=== PATIENT | male | born 1960 | race Caucasian/White ===

== ENCOUNTER 2017-01-01 09:00 | Emergency (ER) | payer OTHER ==
[2017-01-01 09:32] VITALS: BP 135/79
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
== END 2017-01-01 11:38 ==
LOC: UCEAST 09:00
DX: H53.8 Other visual disturbances (principal); Z77.098 Contact with and (suspected) exposure to other hazardous, chiefly nonmedicinal, chemicals; F12.90 Cannabis use, unspecified, uncomplicated; Z87.891 Personal history of nicotine dependence
CPT/HCPCS: 99213; G0463

== ENCOUNTER 2017-01-15 15:45 | Emergency (ER) | payer OTHER ==
[2017-01-15 16:12] VITALS: BP 147/86
[2017-01-15] MEDS ORDERED: NS 0.9% 1000 ML* 1,000 ML IV ONE (16:47)
[2017-01-15] MEDS ORDERED: Ondansetron INJ* 2 MG/ML VIAL IV ONE (16:47)
--- NOTE | 2017-01-15 17:36 | RAD ---
INDICATION: Posterior headaches. Neck pain. COMPARISON: None TECHNIQUE: Noncontrast axial source images was performed from the skull base to the thoracic inlet. Coronal and and sagittal reformatted images were generated. FINDINGS: Vertebrae: There is no fracture or acute focal bony lesion. Alignment: The craniocervical junction appears normal. The cervical vertebrae are normally aligned. Central Canal: There are no significant CT abnormalities of the central canal or foramina. MR imaging is a more sensitive method to evaluate the canal and foramina. Intervertebral disc spaces: Moderate degenerative disc disease C5-C6, unchanged. Mild to moderate degenerative disc disease C3-C4. The remaining disc spaces are well-maintained. Brain: The visualized brain appears unremarkable. Soft tissues: The visualized soft tissue elements of the neck are unremarkable. The prevertebral soft tissues appear normal. The lung apices are clear. IMPRESSION: MULTILEVEL DEGENERATIVE DISC DISEASE. NO ACUTE FINDINGS
--- NOTE | 2017-01-15 17:38 | RAD ---
INDICATION: Posterior headaches COMPARISON: CT brain November 03, 2015 TECHNIQUE: Noncontrast axial source images were acquired from the skull base to the vertex. FINDINGS: Ventricles/sulci: The ventricles and cisterns are normal in size and configuration for age. Brain parenchyma: There is no focal parenchymal finding, evidence of intracranial mass, or intracranial mass effect. Intracranial hemorrhage:None. Extra-axial spaces: There are by temporal arachnoid cysts in the anterior middle cranial fossa is, unchanged. Calvarium: There is no calvarial fracture or other calvarial abnormality. Scalp: There is no evidence of scalp or extracalvarial soft tissue abnormality. Paranasal sinuses/mastoid: The paranasal sinuses and mastoid air cells are clear. Other: None. IMPRESSION: No acute intracranial findings. Arachnoid cysts in the anterior temporal bilaterally, unchanged.
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
== END 2017-01-15 19:05 | disposition home or self-care (01) ==
LOC: UCEAST 15:45
DX: R51 Headache (principal); R11.2 Nausea with vomiting, unspecified; E86.9 Volume depletion, unspecified; E11.65 Type 2 diabetes mellitus with hyperglycemia; F12.90 Cannabis use, unspecified, uncomplicated; Z87.891 Personal history of nicotine dependence
CPT/HCPCS: 70450; 72125; 81002; 87086; 96360; 96361; 96374; 99211; G0463; J2405

== ENCOUNTER 2017-01-16 16:48 | Emergency (ER) | payer OTHER ==
[2017-01-16] MEDS ORDERED: Ketorolac INJ* 30 MG/ML 1 ML VIAL IV ONE (18:52)
[2017-01-16] MEDS ORDERED: NS 0.9% 1000 ML* 1,000 ML IV ONE (18:52)
[2017-01-16] MEDS ORDERED: diPHENhydraMINE IV* 50 MG/ML 1 ml VIAL (BENADRYL) IM ONE (18:52)
[2017-01-16] MEDS ORDERED: Ondansetron ODT TAB* 4 MG PO ONE (18:52)
[2017-01-16] MEDS ORDERED: diPHENhydraMINE IV* 50 MG/ML 1 ml VIAL (BENADRYL) ONE (19:21)
[2017-01-16 20:35] VITALS: BP 109/58
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
== END 2017-01-16 20:40 | disposition home or self-care (01) ==
LOC: UCEAST 16:48
DX: G43.909 Migraine, unspecified, not intractable, without status migrainosus (principal); F12.90 Cannabis use, unspecified, uncomplicated; Z87.891 Personal history of nicotine dependence
CPT/HCPCS: 96360; 96361; 96372; 96374; 99212; A9270-GY; G0463; J1200; J1885

== ENCOUNTER 2017-01-17 15:57 | Emergency (ER) | payer OTHER ==
[2017-01-17 16:21] VITALS: BP 144/108
[2017-01-17] MEDS ORDERED: Ondansetron ODT TAB* 4 MG PO ONE (16:27)
[2017-01-17] MEDS ORDERED: diPHENhydraMINE IV* 50 MG/ML 1 ml VIAL (BENADRYL) IM ONE ×2 (16:27→17:44)
[2017-01-17] MEDS ORDERED: NS 0.9% 1000 ML* 1,000 ML IV ONE (16:27)
[2017-01-17] MEDS ORDERED: Ketorolac INJ* 30 MG/ML 1 ML VIAL IV ONE (16:27)
[2017-01-17] MEDS ORDERED: Ketorolac INJ* 60 MG/2 ML VIAL IM ONE (17:44)
[2017-01-17] MEDS ORDERED: Doxycycline (NF) 100 MG TAB PO ONE (18:31)
[2017-01-17] MEDS ORDERED: DOXYcycline CAP(*) 100 MG ONE (18:53)
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
== END 2017-01-17 19:00 | disposition home or self-care (01) ==
LOC: UCEAST 15:57
DX: G43.909 Migraine, unspecified, not intractable, without status migrainosus (principal); A69.20 Lyme disease, unspecified; E11.9 Type 2 diabetes mellitus without complications; F12.90 Cannabis use, unspecified, uncomplicated; Z87.891 Personal history of nicotine dependence
CPT/HCPCS: 87502; 96372; 99213; A9270-GY; G0463; J1200; J1885

== ENCOUNTER 2017-05-26 16:31 | Emergency (ER) | payer OTHER ==
[2017-05-26 16:41] VITALS: BP 128/71
[2017-05-26] MEDS ORDERED: Ketorolac INJ* 60 MG/2 ML VIAL IM ONE (16:58)
[2017-05-26] MEDS ORDERED: Tetan/Diph/Pertus SYR(Tdap)* 0.5 ML SYR(BOOSTRIX) use SYR IM ONE (16:59)
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
== END 2017-05-26 17:42 | disposition home or self-care (01) ==
LOC: ED 16:31
DX: S80.212A Abrasion, left knee, initial encounter (principal); M25.562 Pain in left knee; M54.9 Dorsalgia, unspecified; W19.XXXA Unspecified fall, initial encounter; Y93.9 Activity, unspecified; Y92.9 Unspecified place or not applicable
CPT/HCPCS: 90471; 90715; 96372; 99282; J1885

== ENCOUNTER 2017-11-23 10:38 | Emergency (ER) | payer OTHER ==
--- OUTSIDE RECORDS SUMMARY | 2017-11-23 10:49 | XMS REPORT ---
:1960 External Reference #:[id number] Author Organization [facility] Address [address] [place] [address] Phone [phone] Care Team Providers Name Role Phone HCP given Primary Care Physician Unavailable Payers Type Date Identification Payment Subscriber Numbers Provider Health Maintenance Effective: Policy Number: Rodolfo/Sarabjit Chandra Organization (O) 04/29/2014 [id number] e (FERCHO MGD) Ynes PayID: [id number] [address] [address] [place] [address] Problems Date Description Provider Status Onset: 01/20/2016 Migraine without aura, not refractory Chino Kelly M.D. Active Onset: 01/20/2016 Opioid dependence, uncomplicated Chino Kelly M.D. Active Onset: 03/02/2016 Type II diabetes mellitus uncontrolled Chino Kelly M.D. Active Onset: 05/06/2016 Obstructive sleep apnea syndrome Chino Kelly M.D. Active Onset: 01/18/2017 Refractory migraine with aura Cristian Romero D.O. 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 day as needed for neck pain, take with food Rosuvastatin 11/03/ Active Tablets 5mg 30tab take one E11.9 [place], Calcium 2016 s tablet by Chino mouth every M.D. day to lower choloesterol and reduce risk of heart disease Multivitamin 05/02/ Active Tablets 1 by mouth Unknown Adult 2017 every day B Complex 02/25/ Active Tablets 1 by mouth Unknown 2017 once daily prn for muscle cramps Freestyle Lite 05/06/ Active Strips 100un use as E11.65 Leitcia Test 2016 its directed for Chino measuring M.D. blood sugar 1-2x/day and as needed Freestyle 05/06/ Active Misc 100un use as E11.65 Leticia Lancets 2016 its directed once Chino, a day for M.D. blood sugar monitoring Omeprazole 04/01/ Active Capsules 20mg 30cap take one K21.[address] s capsule by Chino mouth up to M.D. once a day, as needed for acid reflux Ondansetron 03/03/ Active Tablets 4mg 15tab 1 by mouth R11.0 Leticia 2016 Dispers s every 4 hours Chino, as needed for M.D. nausea/vomiti ng R11.2 Suboxone 12/19/2015 Active Film 8-2mg 45units 3/4 film 2x/day; F11.20 Leticia, for chronic pain Rosi Magana and opiate dependence; suboxone prescriber# [id number]; Rx due 11/08/17 M54.2 PT For Neck Pain 09/08/ please evaluate M54.2 Leticia 2016 - and treatChino M.D. 10/08/ instruct in hep, 2017 modalities prn. Naproxen Sodium 05/02/ Hx Tablets 220mg as directed as Unknown 2017 - needed 2016 Nystatin 02/02/ Hx Cream [id number] 30uni apply to Silcoff, 2017 - Unit/G ts affected area(s) Rosi Magana 02/25/ M on penis three 2017 times a day as needed Nystatin-Triamcinolon 01/29/ Hx Cream [id number] 30gm apply to N48.1 Leticia, e 2016 - -0.1Un affected areas Rosi Magana 02/25/ it/GM- on penis 3 times 2017 % a day as needed until clear Lidocaine 01/26/ Hx Ointment 5% 35.44 apply to the A07.0 [facility], 2017 - 0gm affected area Cristian D.O. 01/29/ three times a 2016 day for pain Fluconazole 01/21/ Hx Tablets 150mg 1tabs 1 by mouth once A07.0 [facility] 2016 - Cristian, D.O. 2016 Lidocaine HCL 01/21/ Hx Gel 2% 30ml apply to head of A07.0 [facility], 2016 - penis 4 times a Cristian, D.O. 01/26/ day as needed 2016 for pain Clindamycin Phosphate 01/21/ Hx Lotion 1% 180ml apply 1 7.0 [facility], 2016 - application Cristian, D.O. 01/26/ topically to 2017 affected area 2 times per day Doxycycline Hyclate 01/20/ Hx Tablets DR 100mg 56tab take 1 [facility] 2 times 0 Cristian, D.O. 01/30/ per day for 28 2016 days for lyme disease Cyclobenzaprine HCL 01/18/ Hx Tablets 10mg 30tab 1 by mouth [facility]54.2 [facility] - s times a day as Cristian, D.O. 01/28/ needed as needed 2016 for muscle spasms. Fluticasone 01/05/ Hx Suspension 50mcg/ 16uni 2 sprays into J31.0 Sil[place]ff, Propionate 2017 - Act ts each nostril Rosi Magana 01/28/ once daily for 2017 nasal congestion; stop using all other nasal sprays within 1 week of starting this Simvastatin 11/03/ Hx Tablets 20mg 30tab take one tablet E11.6 [place]ff, 2016 - s by mouth every 5 Isauro Magana.DClayton 01/18/ day to lower 2016 cholesterol E11.9 Nystatin 10/09/2016 - Hx Cream [id number]/GM 30units apply to B37.42 [place]ff, 10/19/2016 affected Chino, area(s) on M.D. penis three times a day as needed Ibuprofen 09/08/2016 - Hx Tablets 800mg 90tabs 1 cap by M25.50 [place], 11/02/2017 mouth three Cristian, D.O. times a day as needed M25.50 Rosuvastatin 08/05/2016 - Hx Tablets 20mg 15tabs 1/2 by mouth E11.65 [place]ff, Calcium 10/08/2016 every day to Chino, lower M.D. cholesterol and lower heart disease risk Atorvastatin 05/06/2016 - Hx Tablets 20mg 30tabs 1 by mouth E11.65 Sil[place]ff, Calcium 07/06/2016 every day for Chino, cholesterol M.D. Tamsulosin HCL 02/03/2016 - Hx Capsules 0.4mg 30caps 1 pill daily R35.0 [place]ff, 02/03/2016 1/2 hour after Chino, same meal each M.D. day; for enlarged prostate; stop after 2 weeks if not helpful Terbinafine HCL 01/20/2016 - Hx Tablets 250mg 84tabs 1 by mouth B35.1 [place]ff, 02/24/2016 every day for Chino, 12 wks; need M.D. blood tests monthly (after 4wks and after 8wks) while taking this medication Naproxen 01/20/2016 - Hx Tablets 500mg 60tabs 1 by mouth M25.50 Silcoff , 09/08/2016 twice a day as Chino, needed for M.D. neck and joint pain (to replace ibuprofen) M25.50 Ibuprofen 12/11/2015 - Hx Tablets 800mg 90tabs 1 tablet up M25.50 Silcoff, 01/20/2016 to every 8 Chino M.DClayton hours for pain M25.50 Sumatriptan 11/04/2015 - Hx Tablets 50mg 12tabs 1 by mouth G43.009 [place]ff, Succinate 01/28/2017 at onset of Chino, migraine; M.D. may repeat once after 2 hours if needed; max 3x/wk Lorazepam 11/04/2015 - Hx Tablets 1mg 1 by mouth F41.9 Unknown 12/29/2015 three times a day as needed for anxiety Ciclopirox 03/30/2015 - Hx Suspension 0.77% us as B35.1 Unknown Olamine 01/20/2016 directed for nail fungus on toes Immunizations CPT Code Status Date Vaccine Lot # [id number] Given 08/10/2017 Influenza Virus Vaccine, Quadrivalent, Split, [id number] Preservative Free 19618 Given 05/26/2017 Adacel or Boostrix, [id number] Given 08/05/2016 Influenza Virus Vaccine, Quadrivalent, Split, [id number] Preservative Free 22504 Given 04/01/2016 Adacel or Boostrix, TDaP [id number] Vital Signs Date Vital Result Comment 2017 BP Systolic 120 mmHg BP Diastolic 70 mmHg Height 73 inches 6'1" w/shoes Weight 240.00 lb w/shoes BMI (Body Mass Index) 31.7 kg/m2 10/09/2017 BP Systolic 122 mmHg BP Diastolic 80 mmHg Weight 235.00 lb with shoes 09/08/2017 BP Systolic 126 mmHg BP Diastolic 68 mmHg 08/10/2017 BP Systolic 116 mmHg BP Diastolic 78 mmHg Weight 230.00 lb 07/07/2017 BP Systolic 110 mmHg BP Diastolic 70 mmHg Weight 232.00 lb 06/04/2017 BP Systolic 118 mmHg BP Diastolic 72 mmHg Weight 232.00 lb w/sandals 05/03/2017 BP Systolic 114 mmHg BP Diastolic 70 mmHg Height 72 inches 6'0" Weight 238.00 lb BMI (Body Mass Index) 32.3 kg/m2 03/30/2017 BP Systolic 116 mmHg BP Diastolic 76 mmHg Weight 245.00 lb 02/26/2017 BP Systolic 110 mmHg BP Diastolic 70 mmHg Weight 247.00 lb with sneakers 01/29/2017 BP Systolic 132 mmHg BP Diastolic 78 mmHg Weight 247.00 lb with shoes 01/21/2017 BP Systolic 112 mmHg BP Diastolic 70 mmHg Weight 247.00 lb 01/18/2017 BP Systolic 128 mmHg BP Diastolic 88 mmHg Weight 254.00 lb 01/05/2017 BP Systolic 122 mmHg BP Diastolic 80 mmHg Weight 253.00 lb with shoes 12/04/2016 BP Systolic 138 mmHg BP Diastolic 84 mmHg 2016 BP Systolic 116 mmHg BP Diastolic 64 mmHg Height 73 inches 6'1" w/shoes Weight 252.00 lb w/shoes BMI (Body Mass Index) 33.2 kg/m2 10/09/2016 BP Systolic 130 mmHg BP Diastolic 88 mmHg Weight 252.00 lb with shoes 09/08/2016 BP Systolic 109 mmHg BP Diastolic 64 mmHg Heart Rate 86 /min Weight 248.00 lb 08/05/2016 BP Systolic 108 mmHg BP Diastolic 68 mmHg 07/08/2016 BP Systolic 130 mmHg BP Diastolic 80 mmHg Weight 251.00 lb w/shoes 06/03/2016 BP Systolic 124 mmHg BP Diastolic 76 mmHg 05/06/2016 BP Systolic 108 mmHg BP Diastolic 70 mmHg Weight 248.00 lb w/shoes 04/01/2016 BP Systolic 122 mmHg BP Diastolic 78 mmHg Height 72.25 inches 6'0.25" Weight 249.00 lb BMI (Body Mass Index) 33.5 kg/m2 03/02/2016 BP Systolic 120 mmHg BP Diastolic 76 mmHg Weight 255.00 lb w/shoes 02/03/2016 BP Systolic 120 mmHg BP Diastolic 74 mmHg 01/20/2016 BP Systolic 120 mmHg BP Diastolic 80 mmHg Weight 251.00 lb w/shoes 12/30/2015 BP Systolic 110 mmHg BP Diastolic 62 mmHg Weight 248.00 lb w/shoes 11/27/2015 BP Systolic 138 mmHg BP Diastolic 82 mmHg Heart Rate 80 /min reg Respiratory Rate 14 /min not laboured Height 72.75 inches 6'0.75" Weight 241.00 lb BMI (Body Mass Index) 32.0 kg/m2 Results Test Date Test Result H/L Range Note Lipid Profile (Trig/Chol/HDL) 2017 Triglycerides 126 mg/dL 1 Cholesterol 145 mg/dL 2 HDL Cholesterol 42.1 mg/dL 3 LDL Cholesterol 78 mg/dL 4 Urine Microalbumin Random 2017 Ur Microalbumin (mg/L) < 15.0 mg/L Urine Creatinine 256.40 mg/dL Urine Microalbumin/Creatinine TNP ug/mg <31 5 Urine Drug Screen Inhouse 09/08/2017 Ua Cocaine - Ua Opiates - Ua Amphetamines - Urine Methanphetamines - Urine Benzodiazepines QN [place] - Urine Oxycodone QL - Laboratory test finding 09/08/2017 Hemoglobin A1c 5.8 Laboratory test finding 06/04/2017 Hemoglobin A1c 5.9 Laboratory test finding 02/26/2017 Hemoglobin A1c 6.8 Comp Metabolic Panel 01/21/2017 Sodium 134 mmol/L 133-145 Potassium 4.0 mmol/L 3.5-5.0 Chloride 100 mmol/L Low 101-111 Co2 Carbon Dioxide 28 mmol/L 22-32 Anion Gap 6 mmol/L 2-11 Glucose 169 mg/dL High 70-100 Blood Urea Nitrogen 18 mg/dL 6-24 Creatinine 0.88 mg/dL 0.67-1.17 BUN/Creatinine Ratio 20.5 High 8-20 Calcium 10.0 mg/dL 8.6-10.3 Total Protein 6.9 g/dL 6.4-8.9 Albumin 4.5 g/dL 3.2-5.2 Globulin 2.4 g/dL 2-4 Albumin/Globulin Ratio 1.9 1-3 Total Bilirubin 1.60 mg/dL High 0.2-1.0 Alkaline Phosphatase 90 U/L 34-104 Alt 62 U/L High 7-52 Ast 55 U/L High 13-39 Egfr Non- 90.2 >60 Egfr 116.1 >60 6 Laboratory test finding 01/21/2017 Creatine Kinase(CK) 299 U/L High 10- 223 Urine Micro Inhouse 01/18/2017 Ua WBC occ 7 Ua RBC - 7 Ua Casts 1 7 Ua Epi occ 7 Ua Other - 7 Ua Glucose - 7 Ua Bilirubin - 7 Ua Ketones - 7 Ua Specific [place] 1.005 7 Ua Blood - 7 Ua PH (omitted) 7 Ua Protein - 7 Ua Urobilinogen - 7 Ua Nitrite - 7 Ua Leukocytes - 7 Culture Urine Inhouse 01/18/2017 Colonies negative 7 CBC Auto Diff 01/18/2017 White Blood Count 7.4 10^3/uL 3.5-10.8 Red Blood Count 4.60 10^6/uL 4.0-5.4 Hemoglobin 14.2 g/dL 14.0-18.0 Hematocrit 41 % Low 42-52 Mean Corpuscular Volume 89 fL 80-94 Mean Corpuscular Hemoglobin 31 pg 27-31 Mean Corpuscular HGB Conc 35 g/dL 31-36 Red Cell Distribution Width 14 % 10.5-15 Platelet Count 110 10^3/uL Low 150-450 Mean Platelet Volume 9 um3 7.4-10.4 Abs Neutrophils 4.6 10^3/uL 1.5-7.7 Abs Lymphocytes 2.0 10^3/uL 1.0-4.8 Abs Monocytes 0.5 10^3/uL 0-0.8 Abs Eosinophils 0.1 10^3/uL 0-0.6 Abs Basophils 0.1 10^3/uL 0-0.2 Abs Nucleated RBC 0 10^3/uL Granulocyte % 62.8 % 38-83 Lymphocyte % 27.2 % 25-47 Monocyte % 7.4 % 1-9 Eosinophil % 1.9 % 0-6 Basophil % 0.7 % 0-2 Nucleated Red Blood Cells % 0 Comp Metabolic Panel 01/18/2017 Sodium 135 mmol/L 133-145 Potassium 3.9 mmol/L 3.5-5.0 Chloride 101 mmol/L 101-111 Co2 Carbon Dioxide 29 mmol/L 22-32 Anion Gap 5 mmol/L 2-11 Glucose 99 mg/dL 70-100 Blood Urea Nitrogen 14 mg/dL 6-24 Creatinine 0.97 mg/dL 0.67-1.17 BUN/Creatinine Ratio 14.4 8-20 Calcium 9.7 mg/dL 8.6-10.3 Total Protein 6.5 g/dL 6.4-8.9 Albumin 4.2 g/dL 3.2-5.2 Globulin 2.3 g/dL 2-4 Albumin/Globulin Ratio 1.8 1-3 Total Bilirubin 1.70 mg/dL High 0.2-1.0 Alkaline Phosphatase 66 U/L 34-104 Alt 60 U/L High 7-52 Ast 59 U/L High 13-39 Egfr Non- 80.7 >60 Egfr 103.7 >60 8 Laboratory test finding 01/18/2017 Magnesium 1.9 mg/dL 1.9-2.7 TSH (Thyroid Stim Horm) 3.36 mcIU/mL 0.34-5.60 Vitamin D Total 25(Oh) 24.3 ng/mL Low 30-50 Vitamin B12 882 pg/mL 180-914 9 Lyme Western Blot 01/18/2017 Lyme Disease IgG Ab WB Negative Negative Lyme Disease IgG Bands Present p41, p23, kDa Lyme Disease IgM Ab WB Positive Negative Lyme Disease IgM Bands Present p41, p23, kDa Lyme Disease Interpretation See Comment 10 Laboratory test finding 01/18/2017 Folic Acid (Folate) > 20.00 ng/mL & gt;3.99 C Reactive Protein 1.06 mg/L < 5.00 11 Creatine Kinase(CK) 497 U/L High 10-223 Erythrocyte Sed Rate 6 mm/Hr 0-20 Phosphorus 4.7 mg/dL 2.5-5.0 Uric Acid 5.6 mg/dL 4.4-7.6 Tick-Borne Panel PCR Blood 01/18/2017 Babesia microti PCR Negative Negative Babesia ducani Negative Negative Babesia divergens/Mo-1 Negative Negative 12 Anaplasma phagocytophilum Negative Negative Ehrlichia chaffeensis Negative Negative Ehrlichia ewingii/canis Negative Negative Ehrlichia muris-like Negative Negative 13 B. miyamotoi PCR, B Negative Negative 14 Rapid Influenza A & B 01/17/2017 Influenza A Molecular NEGATIVE Negative 15 Molecular Influenza B Molecular NEGATIVE Negative Laboratory test 01/17/2017 Point of Care 131 mg/dL High 74-106 16 finding Glucose Laboratory test 01/15/2017 Urine Culture And SEE RESULT 17, 18 finding Sensitivities BELOW Laboratory test 01/15/2017 Point of Care 176 mg/dL High 74-106 19 finding Glucose Laboratory test 12/04/2016 Hemoglobin A1c 6.5 finding Rapid Influenza A 11/21/2016 Influenza A NEGATIVE Negative 20 & B Molecular Molecular Influenza B Molecular NEGATIVE Negative Laboratory test 11/21/2016 Rapid Strep Negative Negative 21 finding Molecular Laboratory test 11/21/2016 Rapid Influenza A B SEE RESULT BELOW 22 finding Antigen Rapid Strep A Request SEE RESULT BELOW 23 CBC Auto Diff 10/19/2016 White Blood Count 6.1 10^3/uL 3.5-10.8 Red Blood Count 4.78 10^6/uL 4.0-5.4 Hemoglobin 14.8 g/dL 14.0-18.0 Hematocrit 43 % 42-52 Mean Corpuscular Volume 90 fL 80-94 Mean Corpuscular Hemoglobin 31 pg 27-31 Mean Corpuscular HGB Conc 35 g/dL 31-36 Red Cell Distribution Width 13 % 10.5-15 Platelet Count 112 10^3/uL Low 150-450 Mean Platelet Volume 9 um3 7.4-10.4 Abs Neutrophils 4.0 10^3/uL 1.5-7.7 Abs Lymphocytes 1.6 10^3/uL 1.0-4.8 Abs Monocytes 0.4 10^3/uL 0-0.8 Abs Eosinophils 0.1 10^3/uL 0-0.6 Abs Basophils 0 10^3/uL 0-0.2 Abs Nucleated RBC 0 10^3/uL Granulocyte % 64.5 % 38-83 Lymphocyte % 26.3 % 25-47 Monocyte % 6.6 % 1-9 Eosinophil % 2.0 % 0-6 Basophil % 0.6 % 0-2 Nucleated Red Blood Cells % 0 Comp Metabolic Panel 10/19/2016 Sodium 136 mmol/L 133-145 Potassium 4.0 mmol/L 3.5-5.0 Chloride 104 mmol/L 101-111 Co2 Carbon Dioxide 25 mmol/L 22-32 Anion Gap 7 mmol/L 2-11 Glucose 129 mg/dL High 70-100 Blood Urea Nitrogen 15 mg/dL 6-24 Creatinine 0.85 mg/dL 0.67-1.17 BUN/Creatinine Ratio 17.6 8-20 Calcium 9.7 mg/dL 8.6-10.3 Total Protein 6.9 g/dL 6.4-8.9 Albumin 4.5 g/dL 3.2-5.2 Globulin 2.4 g/dL 2-4 Albumin/Globulin Ratio 1.9 1-3 Total Bilirubin 1.30 mg/dL High 0.2-1.0 Alkaline Phosphatase 75 U/L 34-104 Alt 66 U/L High 7-52 Ast 54 U/L High 13-39 Egfr Non- 94.3 >60 Egfr 121.3 >60 24 Laboratory test finding 10/19/2016 Lyme Disease Serology Negative Negative 25 CBC Auto Diff 10/05/2016 White Blood Count 7.5 10^3/uL 3.5-10.8 Red Blood Count 4.60 10^6/uL 4.0-5.4 Hemoglobin 14.6 g/dL 14.0-18.0 Hematocrit 41 % Low 42-52 Mean Corpuscular Volume 89 fL 80-94 Mean Corpuscular Hemoglobin 32 pg High 27-31 Mean Corpuscular HGB Conc 36 g/dL 31-36 Red Cell Distribution Width 14 % 10.5-15 Platelet Count 114 10^3/uL Low 150-450 Mean Platelet Volume 9 um3 7.4-10.4 Abs Neutrophils 4.1 10^3/uL 1.5-7.7 Abs Lymphocytes 2.4 10^3/uL 1.0-4.8 Abs Monocytes 0.7 10^3/uL 0-0.8 Abs Eosinophils 0.2 10^3/uL 0-0.6 Abs Basophils 0.1 10^3/uL 0-0.2 Abs Nucleated RBC 0.01 10^3/uL Granulocyte % 55.4 % 38-83 Lymphocyte % 32.0 % 25-47 Monocyte % 8.9 % 1-9 Eosinophil % 2.6 % 0-6 Basophil % 1.1 % 0-2 Nucleated Red Blood Cells % 0.2 Basic Metabolic Panel 10/05/2016 Sodium 134 mmol/L 133-145 Potassium 3.7 mmol/L 3.5-5.0 Chloride 101 mmol/L 101-111 Co2 Carbon Dioxide 27 mmol/L 22-32 Anion Gap 6 mmol/L 2-11 Glucose 164 mg/dL High 70-100 Blood Urea Nitrogen 19 mg/dL 6-24 Creatinine 0.95 mg/dL 0.67-1.17 BUN/Creatinine Ratio 20.0 8-20 Calcium 9.5 mg/dL 8.6-10.3 Egfr Non- 82.9 >60 Egfr 106.7 >60 26 Urine Drug Screen Inhouse 09/08/2016 Ua Cocaine - Ua Opiates - Ua Amphetamines - Urine Methanphetamines - Urine Benzodiazepines QN [place] - Urine Oxycodone QL - Laboratory test 09/08/2016 Hemoglobin A1c 6.3 finding Laboratory test 07/09/2016 Surgical Pathology SEE RESULT 27, 28 finding BELOW Laboratory test 07/09/2016 Clotest SEE RESULT 29, 30 finding BELOW Laboratory test 06/03/2016 Hemoglobin A1c 6.4 finding Laboratory test 05/06/2016 Glucose Quantitative 196 31 finding Laboratory test 04/08/2016 TSH (Thyroid Stim 1.90 ?IU/mL 0.34-5.60 32 finding Horm) Creatine Kinase(CK) 191 U/L 10-223 33 Urine Microalbumin Random 04/08/2016 Ur Microalbumin (mg/L) < 5.0 mg/L Urine Creatinine 240.05 mg/dL Urine Microalbumin/Creatinine TNP ug/mg <31 34 Lipid Profile (Trig/Chol/HDL) 04/08/2016 Triglycerides 252 mg/dL 35 Cholesterol 156 mg/dL 36 HDL Cholesterol 29.6 mg/dL 37 LDL Cholesterol 76 mg/dL 38 Laboratory test finding 03/04/2016 Point of Care Glucose 127 mg/dL High 74 -106 39 Laboratory test finding 03/02/2016 Hemoglobin A1c 6.6 Urine Drug Screen Inhouse 03/02/2016 Ua Cocaine - Ua Opiates - Ua Amphetamines - Urine Methanphetamines - Urine Benzodiazepines QN [place] - Urine Oxycodone QL - CBC Auto Diff 02/28/2016 White Blood Count 5.5 10^3/uL 3.5-10.8 Red Blood Count 4.72 10^6/uL 4.0-5.4 Hemoglobin 14.4 g/dL 14.0-18.0 Hematocrit 43 % 42-52 Mean Corpuscular Volume 91 fL 80-94 Mean Corpuscular Hemoglobin 30 pg 27-31 Mean Corpuscular HGB Conc 34 g/dL 31-36 Red Cell Distribution Width 14 % 10.5-15 Platelet Count 108 10^3/uL Low 150-450 Mean Platelet Volume 9 um3 7.4-10.4 Abs Neutrophils 3.4 10^3/uL 1.5-7.7 Abs Lymphocytes 1.5 10^3/uL 1.0-4.8 Abs Monocytes 0.4 10^3/uL 0-0.8 Abs Eosinophils 0.2 10^3/uL 0-0.6 Abs Basophils 0 10^3/uL 0-0.2 Abs Nucleated RBC 0 10^3/uL Granulocyte % 61.4 % 38-83 Lymphocyte % 27.1 % 25-47 Monocyte % 7.7 % 1-9 Eosinophil % 3.0 % 0-6 Basophil % 0.8 % 0-2 Nucleated Red Blood Cells % 0.1 Comp Metabolic Panel 02/28/2016 Sodium 136 mmol/L 133-145 Potassium 3.8 mmol/L 3.5-5.0 Chloride 103 mmol/L 101-111 Co2 Carbon Dioxide 25 mmol/L 22-32 Anion Gap 8 mmol/L 2-11 Glucose 208 mg/dL High 70-100 Blood Urea Nitrogen 15 mg/dL 6-24 Creatinine 0.88 mg/dL 0.67-1.17 BUN/Creatinine Ratio 17.0 8-20 Calcium 9.5 mg/dL 8.6-10.3 Total Protein 6.5 g/dL 6.4-8.9 Albumin 4.2 g/dL 3.2-5.2 Globulin 2.3 g/dL 2-4 Albumin/Globulin Ratio 1.8 1-3 Total Bilirubin 1.30 mg/dL High 0.2-1.0 Alkaline Phosphatase 95 U/L 34-104 Alt 60 U/L High 7-52 Ast 54 U/L High 13-39 Egfr Non- 90.6 >60 Egfr 116.5 >60 40 Laboratory test finding 02/28/2016 Amylase 28 U/L Low 29-103 Lipase 39 U/L 11.0-82.0 C Reactive Protein 2.32 mg/L < 5.00 41 Urine Micro Inhouse 02/18/2016 Ua WBC - 42 Ua RBC - 42 Ua Casts - 42 Ua Epi - 42 Ua Other - 42 Ua Glucose - 42 Ua Bilirubin - 42 Ua Ketones - 42 Ua Specific [place] 1.010 42 Ua Blood - 42 Ua PH 7.0 42 Ua Protein - 42 Ua Urobilinogen - 42 Ua Nitrite - 42 Ua Leukocytes - 42 Liver Function Panel 02/18/2016 Total Protein 6.8 g/dL 6.4-8.9 Albumin 4.5 g/dL 3.2-5.2 Globulin 2.3 g/dL 2-4 Albumin/Globulin Ratio 2.0 1-3 Total Bilirubin 1.20 mg/dL High 0.2-1.0 Direct Bilirubin 0.20 mg/dL High 0.03-0.18 Indirect Bilirubin 1.0 mg/dL 0.3-1.0 Alkaline Phosphatase 94 U/L 34-104 Alt 56 U/L High 7-52 Ast 42 U/L High 13-39 Urine Drug Screen Inhouse 02/03/2016 Ua Cocaine - Ua Opiates - Ua Amphetamines - Urine Methanphetamines - Urine Benzodiazepines QN [place] - Urine Oxycodone QL - Urine Drug Screen Inhouse 01/20/2016 Ua Cocaine - Ua Opiates - Ua Amphetamines - Urine Methanphetamines - Urine Benzodiazepines QN [place] - Urine Oxycodone QL - Laboratory test finding 12/30/2015 Smooth Muscle Antibody Negative Negative 43 Katerina (Antinuclear Antibodies) Negative Negative CBC Auto Diff 12/30/2015 White Blood Count 6.7 10^3/uL 3.5-10.8 Red Blood Count 4.96 10^6/uL 4.0-5.4 Hemoglobin 15.2 g/dL 14.0-18.0 Hematocrit 44 % 42-52 Mean Corpuscular Volume 89 fL 80-94 Mean Corpuscular Hemoglobin 31 pg 27-31 Mean Corpuscular HGB Conc 34 g/dL 31-36 Red Cell Distribution Width 14 % 10.5-15 Platelet Count 137 10^3/uL Low 150-450 Mean Platelet Volume 9 um3 7.4-10.4 Abs Neutrophils 3.8 10^3/uL 1.5-7.7 Abs Lymphocytes 2.1 10^3/uL 1.0-4.8 Abs Monocytes 0.6 10^3/uL 0-0.8 Abs Eosinophils 0.1 10^3/uL 0-0.6 Abs Basophils 0.1 10^3/uL 0-0.2 Abs Nucleated RBC 0.01 10^3/uL Granulocyte % 56.6 % 38-83 Lymphocyte % 31.8 % 25-47 Monocyte % 8.8 % 1-9 Eosinophil % 1.9 % 0-6 Basophil % 0.9 % 0-2 Nucleated Red Blood Cells % 0.2 Laboratory test finding 12/30/2015 Ceruloplasmin 15.9 mg/dL 44 Endomysial Abs Negative Negative 45 Ferritin 156.7 ng/mL 24-336 Iron & Iron Binding Capacity 12/30/2015 Iron 103 g/dL 50-212 Unsaturated Iron Binding 342 g/dL Total Iron Binding Capacity 445 g/dL 250-450 % Iron Saturation 23 % 15-55 Laboratory test finding 12/30/2015 Hepatitis C Antibody Nonreactive Nonreactive Hepatitis B Surface Ag Nonreactive Nonreactive Inr/Protime 12/30/2015 Inr 1.08 0.89-1.11 Comp Metabolic Panel 2015 Sodium 134 mmol/L 133-145 Potassium 3.5 mmol/L 3.5-5.0 Chloride 101 mmol/L 101-111 Co2 Carbon Dioxide 26 mmol/L 22-32 Anion Gap 7 mmol/L 2-11 Glucose 116 mg/dL High 70-100 Blood Urea Nitrogen 10 mg/dL 6-24 Creatinine 0.96 mg/dL 0.67-1.17 BUN/Creatinine Ratio 10.4 8-20 Calcium 9.9 mg/dL 8.6-10.3 Total Protein 7.0 g/dL 6.4-8.9 Albumin 4.4 g/dL 3.2-5.2 Globulin 2.6 g/dL 2-4 Albumin/Globulin Ratio 1.7 1-3 Total Bilirubin 2.00 mg/dL High 0.2-1.0 Alkaline Phosphatase 73 U/L 34-104 Alt 59 U/L High 7-52 Ast 39 U/L 13-39 Egfr Non- 81.9 >60 Egfr 105.4 >60 46 CBC Auto Diff 2015 White Blood Count 8.6 10^3/uL 4.8-10.8 Red Blood Count 4.78 10^6/uL 4.0-5.4 Hemoglobin 14.6 g/dL 14.0-18.0 Hematocrit 43 % 42-52 Mean Corpuscular Volume 90 fL 80-94 Mean Corpuscular Hemoglobin 31 pg 27-31 Mean Corpuscular HGB Conc 34 g/dL 31-36 Red Cell Distribution Width 13 % 10.5-15 Platelet Count 148 10^3/uL Low 150-450 Mean Platelet Volume 8 um3 7.4-10.4 Abs Neutrophils 5.8 10^3/uL 1.5-7.7 Abs Lymphocytes 2.0 10^3/uL 1.0-4.8 Abs Monocytes 0.7 10^3/uL 0-0.8 Abs Eosinophils 0.1 10^3/uL 0-0.6 Abs Basophils 0 10^3/uL 0-0.2 Abs Nucleated RBC 0 10^3/uL Granulocyte % 66.5 % 38-83 Lymphocyte % 23.6 % Low 25-47 Monocyte % 7.9 % 1-9 Eosinophil % 1.5 % 0-6 Basophil % 0.5 % 0-2 Nucleated Red Blood Cells % 0 CSF Cell Count 2015 Body Fluid Appearance Clear Body Fluid Color Colorless CSF Tube # 4 Body Fluid Volume 1.5 mL Body Fluid WBC 1 Body Fluid RBC 0 Body Fluid Lymph 9 Body Fluid [place] 5 Body Fluid Total Cells Counted 14 Body Fluid Comment (SEE NOTE) 47 Fluid Reviewed By MD (SEE NOTE) 48 Laboratory test finding 2015 CSF Glucose 70 mg/dL 40-70 CSF Total Protein 38 mg/dL 15-45 CSF Culture & Gram Stain SEE RESULT BELOW 49 Laboratory test finding 11/02/2015 C Reactive Protein < 1.00 mg/L &lt ; 5.00 50 Comp Metabolic Panel 11/02/2015 Sodium 137 mmol/L 133-145 Potassium 3.7 mmol/L 3.5-5.0 Chloride 105 mmol/L 101-111 Co2 Carbon Dioxide 25 mmol/L 22-32 Anion Gap 7 mmol/L 2-11 Glucose 122 mg/dL High 70-100 Blood Urea Nitrogen 9 mg/dL 6-24 Creatinine 0.81 mg/dL 0.67-1.17 BUN/Creatinine Ratio 11.1 8-20 Calcium 9.7 mg/dL 8.6-10.3 Total Protein 6.6 g/dL 6.4-8.9 Albumin 4.3 g/dL 3.2-5.2 Globulin 2.3 g/dL 2-4 Albumin/Globulin Ratio 1.9 1-3 Total Bilirubin 1.90 mg/dL High 0.2-1.0 Alkaline Phosphatase 70 U/L 34-104 Alt 55 U/L High 7-52 Ast 31 U/L 13-39 Egfr Non- 100.1 >60 Egfr 128.7 >60 51 CBC Auto Diff 11/02/2015 White Blood Count 8.8 10^3/uL 4.8-10.8 Red Blood Count 4.58 10^6/uL 4.0-5.4 Hemoglobin 14.1 g/dL 14.0-18.0 Hematocrit 41 % Low 42-52 Mean Corpuscular Volume 90 fL 80-94 Mean Corpuscular Hemoglobin 31 pg 27-31 Mean Corpuscular HGB Conc 34 g/dL 31-36 Red Cell Distribution Width 13 % 10.5-15 Platelet Count 144 10^3/uL Low 150-450 Mean Platelet Volume 8 um3 7.4-10.4 Abs Neutrophils 6.3 10^3/uL 1.5-7.7 Abs Lymphocytes 1.8 10^3/uL 1.0-4.8 Abs Monocytes 0.5 10^3/uL 0-0.8 Abs Eosinophils 0.1 10^3/uL 0-0.6 Abs Basophils 0.1 10^3/uL 0-0.2 Abs Nucleated RBC 0 10^3/uL Granulocyte % 71.5 % 38-83 Lymphocyte % 20.6 % Low 25-47 Monocyte % 5.9 % 1-9 Eosinophil % 0.8 % 0-6 Basophil % 1.2 % 0-2 Nucleated Red Blood Cells % 0 Laboratory test finding 10/26/2015 Lipase 55 U/L 11.0-82.0 C Reactive Protein < 1.00 mg/L < 5.00 52 Magnesium TNP mg/dL 1.9-2.7 53 Comp Metabolic Panel 10/26/2015 Sodium 133 mmol/L 133-145 Chloride 100 mmol/L Low 101-111 Co2 Carbon Dioxide 25 mmol/L 22-32 Glucose 150 mg/dL High 70-100 Blood Urea Nitrogen 15 mg/dL 6-24 Creatinine 0.91 mg/dL 0.67-1.17 BUN/Creatinine Ratio 16.5 8-20 Calcium 9.7 mg/dL 8.6-10.3 Total Protein 6.5 g/dL 6.4-8.9 Albumin 4.2 g/dL 3.2-5.2 Globulin 2.3 g/dL 2-4 Albumin/Globulin Ratio 1.8 1-3 Total Bilirubin 1.70 mg/dL High 0.2-1.0 Alkaline Phosphatase 68 U/L 34-104 Alt 65 U/L High 7-52 Egfr Non- 87.5 >60 Egfr 112.5 >60 54 Potassium TNP mmol/L 3.5-5.0 55 Anion Gap TNP mmol/L 2-11 Ast TNP U/L 13-39 56 CBC Auto Diff 10/26/2015 White Blood Count 7.0 10^3/uL 4.8-10.8 Red Blood Count 4.68 10^6/uL 4.0-5.4 Hemoglobin 14.2 g/dL 14.0-18.0 Hematocrit 43 % 42-52 Mean Corpuscular Volume 91 fL 80-94 Mean Corpuscular Hemoglobin 30 pg 27-31 Mean Corpuscular HGB Conc 34 g/dL 31-36 Red Cell Distribution Width 13 % 10.5-15 Platelet Count 129 10^3/uL Low 150-450 Mean Platelet Volume 8 um3 7.4-10.4 Abs Neutrophils 4.7 10^3/uL 1.5-7.7 Abs Lymphocytes 1.6 10^3/uL 1.0-4.8 Abs Monocytes 0.5 10^3/uL 0-0.8 Abs Eosinophils 0.1 10^3/uL 0-0.6 Abs Basophils 0 10^3/uL 0-0.2 Abs Nucleated RBC 0 10^3/uL Granulocyte % 66.8 % 38-83 Lymphocyte % 23.1 % Low 25-47 Monocyte % 7.5 % 1-9 Eosinophil % 2.0 % 0-6 Basophil % 0.6 % 0-2 Nucleated Red Blood Cells % 0 1 Desirable: <150 Borderline High: 150-199 High: 200-499 Very High: >500 2 Desirable: <200 Borderline High: 200-239 High: >239 3 Low: <40 Desirable: 40-60 High: >60 4 Desirable: <100 Near Optimal: 100-129 Borderline High: 130-159 High: 160-189 Very High: >189 5 Unable to calculate due to low microalbumin 6 Because ethnic data is not always readily available, this report includes an eGFR for both -Americans and non- Americans. The National Kidney Disease Education Program (NKDEP) does not endorse the use of the MDRD equation for patients that are not between the ages of 18 and 70, are , have extremes of body size, muscle mass, or nutritional status, or are non- or non-. According to the National Kidney Foundation, irrespective of diagnosis, the stage of the disease is based on the level of kidney function: Stage Description GFR(mL/min/1.73 m(2)) 1 Kidney damage with normal or decreased GFR 90 2 Kidney damage with mild decrease in GFR 60-89 3 Moderate decrease in GFR 30-59 4 Severe decrease in GFR 15-29 5 Kidney failure <15 (or dialysis) 7 void, clear, pale yellow 8 Because ethnic data is not always readily available, this report includes an eGFR for both -Americans and non- Americans. The National Kidney Disease Education Program (NKDEP) does not endorse the use of the MDRD equation for patients that are not between the ages of 18 and 70, are , have extremes of body size, muscle mass, or nutritional status, or are non- or non-. According to the National Kidney Foundation, irrespective of diagnosis, the stage of the disease is based on the level of kidney function: Stage Description GFR(mL/min/1.73 m(2)) 1 Kidney damage with normal or decreased GFR 90 2 Kidney damage with mild decrease in GFR 60-89 3 Moderate decrease in GFR 30-59 4 Severe decrease in GFR 15-29 5 Kidney failure <15 (or dialysis) 9 Normal Range 180 to 914 Indeterminate Range 145 to 180 Deficient Range <145 10 Consistent with early infection with Borrelia burgdorferi. A new serum specimen should be submitted in 14-21 days to demonstrate seroconversion of IgG. IgM blot criteria is of diagnostic utility only during the first 4 weeks of early Lyme disease. ADDITIONAL INFORMATION CDC criteria require >=5 bands for IgG or >=2 bands for IgM for the Immunoblot to be considered positive. Bands (e.g.,p41) may be detected in patients without Lyme disease, and patterns not meeting the CDC criteria should be interpreted with caution. Immunoblot should be ordered only on specimens that are positive or equivocal by a FDA-licensed Lyme disease antibody screening test (e.g., EIA). Test Performed by: [place] [address] [employer] Supervisor: Ghassan Chavez II, M.D., Ph.D. 11 Acute inflammation: >10.00 12 ADDITIONAL INFORMATION This test was developed and its performance characteristics determined by [facility] in a manner consistent with CLIA requirements. This test has not been cleared or approved by the U.S. Food and Drug Administration. 13 ADDITIONAL INFORMATION This test was developed and its performance characteristics determined by [facility] in a manner consistent with CLIA requirements. This test has not been cleared or approved by the U.S. Food and Drug Administration. 14 ADDITIONAL INFORMATION This test was developed and its performance characteristics determined by [facility] in a manner consistent with CLIA requirements. This test has not been cleared or approved by the U.S. Food and Drug Administration. Test Performed by: [facility] - [address] [address] [employer] Supervisor: Ghassan Chavez II, M.D., Ph.D. 15 Peer Health Promoter: [id number] Holly Im 16 Peer Health Promoter: [id number] Holly Im 17 [id number] 18 SEE RESULT BELOW Name: MARCELLO SAENZ : [address]: Shira Apodaca MD Acct: [id number] Unit: [id number] AGE: 56 Location: [facility] Re01/15/17 SEX: M Status: DEP ER SPEC: [id number] GABINO: 01/15/17-1709 [facility] DR: Shira Apodaca MD REQ: [id number] RECD: 01/16/17 STATUS: ADIEL STAUFFER DR: Chino Kelly MD _ SOURCE: URINE SPDESC: ORDERED: Urine Culture COMMENTS: [id number] Procedure Result Reported Site Urine Culture Final 01/17/17- 1346 ML No Growth (<1,000 CFU/mL) * ML - [facility] ([facility]) . END OF REPORT * ML=Testing performed at Main Lab DEPARTMENT OF PATHOLOGY, [address] [place] [address] Wilberto Crum M.D. Director [facility] # [id number] 19 Peer Health Promoter: [id number] ANALILIA HOUSTON 20 Peer Health Promoter: [id number] Yael Guidrya 21 Peer Health Promoter: [id number] Yael Guidrya 22 SEE RESULT BELOW Name: MARCELLO SAENZ : [address]: Darell Carroll MD Acct: [id number] Unit: [id number] AGE: 56 Location: ED Re11/21/16 SEX: M Status: REG ER SPEC: [id number] GABINO: 11/21/16 [facility] DR: Darell Carroll MD REQ: [id number] RECD: 11/21/16 STATUS: ADIEL STAUFFER DR: Chino Kelly MD _ SOURCE: NASAL SPDESC: ORDERED: Flu A B Request Procedure Result Reported Site Rapid Influenza A B Request Final 11/21/16229 ML Specimen received for Influenza A/B Molecular testing * ML - MAIN LAB ([facility]) . END OF REPORT * ML=Testing performed at Main Lab DEPARTMENT OF PATHOLOGY, [address] [place] [address] Wilberto Crum M.D. Director [facility] # [id number] 23 SEE RESULT BELOW Name: MARCELLO SAENZ : [address]: Darell Carroll MD Acct: [id number] Unit: [id number] AGE: 56 Location: ED Re11/21/16 SEX: M Status: REG ER SPEC: [id number] GABINO: 11/21/16 [facility] DR: Darell Carroll MD REQ: [id number] RECD: 11/21/16 STATUS: ADIEL STAUFFER DR: Chino Kelly MD _ SOURCE: THROAT SPDESC: ORDERED: Strep A Request Procedure Result Reported Site Rapid Strep A Request Final 11/21/16- 0230 ML Specimen received for Rapid Strep A Molecular testing * ML - MAIN LAB ([facility]) . END OF REPORT * ML=Testing performed at Main Lab DEPARTMENT OF PATHOLOGY, [address] [place] [address] Wilberto Crum M.D. Director [facility] # [id number] 24 Because ethnic data is not always readily available, this report includes an eGFR for both -Americans and non- Americans. The National Kidney Disease Education Program (NKDEP) does not endorse the use of the MDRD equation for patients that are not between the ages of 18 and 70, are , have extremes of body size, muscle mass, or nutritional status, or are non- or non-. According to the National Kidney Foundation, irrespective of diagnosis, the stage of the disease is based on the level of kidney function: Stage Description GFR(mL/min/1.73 m(2)) 1 Kidney damage with normal or decreased GFR 90 2 Kidney damage with mild decrease in GFR 60-89 3 Moderate decrease in GFR 30-59 4 Severe decrease in GFR 15-29 5 Kidney failure <15 (or dialysis) 25 Serologic response to B. burgdorferi infection is not detected, but cannot rule out early infection during which low or undetectable antibody levels to B. burgdorferi may be present. If clinically indicated, a new serum specimen should be submitted in 7-14 days. Test Performed by: [address] [address] [employer] Supervisor: Ghassan Chavez II, M.D., Ph.D. 26 Because ethnic data is not always readily available, this report includes an eGFR for both -Americans and non- Americans. The National Kidney Disease Education Program (NKDEP) does not endorse the use of the MDRD equation for patients that are not between the ages of 18 and 70, are , have extremes of body size, muscle mass, or nutritional status, or are non- or non-. According to the National Kidney Foundation, irrespective of diagnosis, the stage of the disease is based on the level of kidney function: Stage Description GFR(mL/min/1.73 m(2)) 1 Kidney damage with normal or decreased GFR 90 2 Kidney damage with mild decrease in GFR 60-89 3 Moderate decrease in GFR 30-59 4 Severe decrease in GFR 15-29 5 Kidney failure <15 (or dialysis) 27 [id number] 28 SEE RESULT BELOW Name: MARCELLO SAENZ : [address]: Kahlil Sauceda MD Acct: [id number] Unit: [id number] AGE: 55 Location: [facility] Re07/09/16 SEX: M Status: DEP REF SPEC: [id number] GABINO: 07/09/16-1303 [facility] DR: Kahlil Sauceda MD REQ: [id number] RECD: 07/09/161338 STATUS: CRYSTAL STAUFFER DR: Chino Kelly MD _ ORDERED: LEVEL IV COMMENTS: [id number] FINAL DIAGNOSIS Colon, descending, biopsy: -- Tubular adenoma. -- No high grade dysplasia or malignancy. CLINICAL HISTORY Right lower quadrant pain; history of gastroesophageal reflux disease POST-OPERATIVE DIAGNOSIS Esophagus - normal, no erosions/Ortiz's; stomach - normal gastric mucosa, no erosion/ulcer; duodenum - normal bulb to third portion. Colonoscopy into terminal ileum, prep fair - small descending colon polyp removed. Conclusions/Plan: Normal EGD; small colon polyp removed GROSS DESCRIPTION The specimen is received in formalin labeled, Biopsy Descending Colon Polyp, and consists of two speckled guillaume-brown irregular to polypoid soft tissue fragments averaging 0.4 x 0.3 x 0.2 cm, which are entirely submitted in one cassette. Signed (signature on file) Sara Henson MD 11/13 1435 END OF REPORT * ML=Testing performed at Main Lab DEPARTMENT OF PATHOLOGY, [address] [place] [address] Wilberto Crum M.D. Director [facility] # [id number] 29 [id number] 30 SEE RESULT BELOW Name: MARCELLO SAENZ : [address]: Kahlil Sauceda MD Acct: [id number] Unit: [id number] AGE: 55 Location: [facility] Re07/09/16 SEX: M Status: REG REF SPEC: [id number] GABINO: 07/09/16-1240 [facility] DR: Kahlil Sauceda MD REQ: [id number] RECD: 07/09/16 STATUS: ADIEL STAUFFER DR: Chino Kelly MD _ SOURCE: GAS ANTRUM SPDESC: ORDERED: Clotest COMMENTS: [id number] Procedure Result Reported Site Clotest Final 07/10/16- 0752 ML Clotest Negative * ML - MAIN LAB ([facility]) . END OF REPORT * ML=Testing performed at Main Lab DEPARTMENT OF PATHOLOGY, [address] [place] [address] Wilberto Crum M.D. Director [facility] # [id number] 31 Dr. Kelly aware 32 FASTING 12 HOUR 33 FASTING 12 HOUR 34 Unable to calculate due to low microalbumin 35 Desirable <150 Borderline high 150-199 High 200-499 Very High >500 36 Desirable <200 Borderline high 200-239 High >239 37 Low <40 Desirable: 40-60 High: >60 38 Desirable: <100 mg/dL Near Optimal: 100-129 mg/dL Borderline High: 130-159 mg/dL High: 160-189 mg/dL Very High: >189 mg/dL 39 Peer Health Promoter: [id number] BRAUN 40 Because ethnic data is not always readily available, this report includes an eGFR for both -Americans and non- Americans. The National Kidney Disease Education Program (NKDEP) does not endorse the use of the MDRD equation for patients that are not between the ages of 18 and 70, are , have extremes of body size, muscle mass, or nutritional status, or are non- or non-. According to the National Kidney Foundation, irrespective of diagnosis, the stage of the disease is based on the level of kidney function: Stage Description GFR(mL/min/1.73 m(2)) 1 Kidney damage with normal or decreased GFR 90 2 Kidney damage with mild decrease in GFR 60-89 3 Moderate decrease in GFR 30-59 4 Severe decrease in GFR 15-29 5 Kidney failure <15 (or dialysis) 41 Acute inflammation: >10.00 42 void, clear, yellow 43 Test Performed by: [address] [address] [employer] Supervisor: Ghassan Chavez II, M.D., Ph.D. 44 REFERENCE VALUE 15.0 - 30.0 Test Performed by: [facility] - [address] [address] [employer] Supervisor: Ghassan Chavez II, M.D., Ph.D. 45 Negative in normal individuals. May be negative in dermatitis herpatiformis or celiac disease patients adhering to a gluten free diet. ADDITIONAL INFORMATION Laboratory developed test. Test Performed by: [address] [address] [employer] Supervisor: Ghassan Chavez II, M.D., Ph.D. 46 Because ethnic data is not always readily available, this report includes an eGFR for both -Americans and non- Americans. The National Kidney Disease Education Program (NKDEP) does not endorse the use of the MDRD equation for patients that are not between the ages of 18 and 70, are , have extremes of body size, muscle mass, or nutritional status, or are non- or non-. According to the National Kidney Foundation, irrespective of diagnosis, the stage of the disease is based on the level of kidney function: Stage Description GFR(mL/min/1.73 m(2)) 1 Kidney damage with normal or decreased GFR 90 2 Kidney damage with mild decrease in GFR 60-89 3 Moderate decrease in GFR 30-59 4 Severe decrease in GFR 15-29 5 Kidney failure <15 (or dialysis) 47 Differential performed on concentrated smear. 48 No evidence of malignancy or acute inflammatory response. No microorganisms. Reviewed by Dr. Crum 49 SEE RESULT BELOW Name: MARCELLO SAENZ : [address]: Jem Peña MD Acct: [id number] Unit: [id number] AGE: 55 Location: ED Re11/03/15 SEX: M Status: DEP ER SPEC: [id number] GABINO: 11/03/[address]: Jem Peña MD REQ: [id number] RECD: 11/03/15 STATUS: ADIEL STAUFFER DR: Chino Kelly MD _ SOURCE: CSF SPDESC: ORDERED: CSF Cult/GS Procedure Result Reported Site CSF Gram Stain Final 11/04/15- 0742 ML 1+ Epithelial Cells No Polys Observed No Organisms Seen Preparation By Cytospin Smear CSF Culture Final 11/07/15- 0849 ML No Growth Day 4 * ML - MAIN LAB ([facility]) . END OF REPORT * ML=Testing performed at Main Lab DEPARTMENT OF PATHOLOGY, [address] [place] [address] Wilberto Crum M.D. Director [facility] # [id number] 50 Acute inflammation: >10.00 51 Because ethnic data is not always readily available, this report includes an eGFR for both -Americans and non- Americans. The National Kidney Disease Education Program (NKDEP) does not endorse the use of the MDRD equation for patients that are not between the ages of 18 and 70, are , have extremes of body size, muscle mass, or nutritional status, or are non- or non-. According to the National Kidney Foundation, irrespective of diagnosis, the stage of the disease is based on the level of kidney function: Stage Description GFR(mL/min/1.73 m(2)) 1 Kidney damage with normal or decreased GFR 90 2 Kidney damage with mild decrease in GFR 60-89 3 Moderate decrease in GFR 30-59 4 Severe decrease in GFR 15-29 5 Kidney failure <15 (or dialysis) 52 Acute inflammation: >10.00 53 Unable to report test result due to hemolysis. 54 Because ethnic data is not always readily available, this report includes an eGFR for both -Americans and non- Americans. The National Kidney Disease Education Program (NKDEP) does not endorse the use of the MDRD equation for patients that are not between the ages of 18 and 70, are , have extremes of body size, muscle mass, or nutritional status, or are non- or non-. According to the National Kidney Foundation, irrespective of diagnosis, the stage of the disease is based on the level of kidney function: Stage Description GFR(mL/min/1.73 m(2)) 1 Kidney damage with normal or decreased GFR 90 2 Kidney damage with mild decrease in GFR 60-89 3 Moderate decrease in GFR 30-59 4 Severe decrease in GFR 15-29 5 Kidney failure <15 (or dialysis) 55 Unable to report test result due to hemolysis. 56 Unable to report test result due to hemolysis. Procedures Date CPT Code Description Status Comment 10/09/2017 Diabetic Foot Exam Completed normal DP and TP pulses, no sores or ulcers, normal monofilament and vibration sense 05/03/2017 43376 Electrocardiogram Complete Completed 06/29/2016 Colonoscopy Completed 2016: 1 small polyp (TA); fu 5yrs Encounters Type Date Location Provider CPT E/M Dx Office Visit 2017 2:30p Main Office Chino Kelly M.D. 99629 F11.20 M54.2 E11.9 Z71.89 Office Visit 10/09/2017 9:45a Main Office Chino Kelly M.D. 56427 E11.9 F11.20 R11.0 Office Visit 09/08/2017 10:30a Main Office Chino Kelly M.D. 69522 E11.9 F11.20 M54.2 Office Visit 08/10/2017 9:45a Main Office Chino Kelly M.D. 76770 F11.20 R11.0 Z41.8 Z23 Office Visit 07/07/2017 11:30a Main Office Chino Kelly M.D. 16490 F11.20 E11.9 Office Visit 06/04/2017 10:15a Main Office Chino Kelly M.D. 26085 E11.9 F11.20 L91.8 Office Visit 05/03/2017 11:00a Main Office Chino Kelly M.D. 87927 F11.20 L72.3 E11.9 Office Visit 03/30/2017 10:00a Main Office Chino Kelly M.D. 12922 F11.20 M54.2 E11.9 Office Visit 02/26/2017 10:15a Main Office Chino Kelly M.D. 69496 E11.9 F11.20 Office Visit 01/29/2017 10:15a Main Office Chino Kelly M.D. 19838 N48.1 A69.20 F11.20 Office Visit 01/21/2017 9:45a Main Office Cristian Romero D.O. 36272 A07.0 Office Visit 01/18/2017 9:45a Main Office Cristian Romero D.O. 91203 R35.0 R25.2 M54.2 G43.119 R53.83 Office Visit 01/05/2017 9:30a Main Office Chino Kelly M.D. 85408 F11.20 Z71.51 J31.0 R25.2 H10.213 Office Visit 12/04/2016 9:30a Main Office Chino Kelly M.D. 51765 E11.9 F11.20 R11.0 G43.009 Z71.51 Office Visit 2016 9:30a Main Office Chino Kelly M.D. 03089 F11.20 R11.0 E11.9 G47.33 G47.00 Office Visit 10/09/2016 9:30a Main Office Chino Kelly M.D. 39387 B37.42 F11.20 K21.9 R11.0 G43.009 E11.65 Office Visit 09/08/2016 3:45p Main Office Cristian Romero D.O. 25989 E11.65 F11.20 K21.9 R11.0 G43.009 Office Visit 08/05/2016 2:30p Main Office Chino Kelly M.D. 65055 F11.20 E11.65 K21.9 R11.0 G43.009 Z71.89 Z23 Office Visit 07/08/2016 1:30p Main Office Chino Kelly M.D. 14157 F11.20 G47.33 S92.355D K76.0 E66.9 K21.9 R11.0 E11.65 G43.009 Office Visit 06/03/2016 4:15p Main Office Chino Kelly M.D. 25695 E11.65 E66.9 F11.20 G47.33 S92.355D Office Visit 05/06/2016 11:15a Main Office Chino Kelly M.D. 53947 E11.65 R10.11 K76.0 E66.9 F11.20 M79.1 G47.33 Z68.32 Office Visit 04/01/2016 11:00a Main Office Chino Kelly M.D. 97739 Z23 F11.20 R10.11 K76.0 E11.65 E66.9 Z13.220 R53.83 M79.1 K21.9 Z23 Office Visit 03/02/2016 11:15a Main Office Chino Kelly M.D. 98170 F11.20 K76.0 R10.11 E66.9 E11.65 B35.1 R73.9 Office Visit 02/03/2016 11:30a Main Office Chino Kelly M.D. 26838 F11.20 R35.0 B35.1 M54.2 M25.50 Office Visit 01/20/2016 11:00a Main Office Chino Kelly M.D. 69602 F11.20 B35.1 M25.50 G43.009 Z51.81 Office Visit 12/30/2015 11:30a Main Office Chino Kelly M.D. 10513 F11.20 M54.2 M54.5 F41.9 R74.0 Office Visit 11/27/2015 12:55p Main Office hCino Kelly M.D. 30896 F11.20 M54.5 F41.9 R74.0 E80.7 G93.0 M54.2 Plan of Care 2017 - Chino Kelly M.D.F11.20 Opioid dependence, uncomplicatedFollow up:RTO 1mo recheck CzvjctymQ81.2 CervicalgiaNew Medication:Naproxen 500 mgE11.9 Type 2 diabetes mellitus without complicationsNew Medication:Rosuvastatin Calcium 5 mgZ71.89 Other specified counselingComments:Discussed issues regarding seeing a medical [facility] provider in [facility], issue of having to find a par provider. I reviewed with him the list of providers on the [facility] database. He will try to get list of par providers from insurance then contact us to send referral
--- NOTE | 2017-11-23 11:56 | RAD ---
INDICATION: Trauma to the occiput after a slip and fall with reported positive loss of consciousness. Relevant surgical history includes "subdural hematoma with brain surgery 1980" COMPARISON: Most recent CT of the brain January 15, 2017 TECHNIQUE: Contiguous axial sections of the brain were obtained from the skull base to the vertex without contrast. FINDINGS: The ventricles, cisterns and sulci are within normal limits. The henderson-white matter differentiation is adequately maintained and there is no sulcal effacement. No significant focal abnormality or mass effect is present. There is no evidence for intracranial hemorrhage. Again seen is a sclerotic defect at the left frontal bone consistent with remote craniectomy. There is no traumatic calvarial fracture. The visualized portion of the paranasal sinuses and mastoid air cells appear clear. IMPRESSION: No acute intracranial hemorrhage or acute calvarial fracture.
[2017-11-23] MEDS ORDERED: Ketorolac INJ* 60 MG/2 ML VIAL IM ONE (12:26)
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
[2017-11-23 12:44] VITALS: BP 130/74
== END 2017-11-23 12:43 | disposition home or self-care (01) ==
LOC: ED 10:38
DX: S09.90XA Unspecified injury of head, initial encounter (principal); S39.92XA Unspecified injury of lower back, initial encounter; Z87.891 Personal history of nicotine dependence; R73.03 Prediabetes; G47.30 Sleep apnea, unspecified; K21.9 Gastro-esophageal reflux disease without esophagitis; M54.5 Low back pain; G89.29 Other chronic pain; F60.2 Antisocial personality disorder; F32.9 Major depressive disorder, single episode, unspecified; W19.XXXA Unspecified fall, initial encounter; Y92.9 Unspecified place or not applicable
CPT/HCPCS: 70450; 96372; 99281; J1885

== ENCOUNTER 2018-02-18 16:55 | Emergency (ER) | payer OTHER ==
[2018-02-18] MEDS ORDERED: Aspirin Low Dose CHEW TAB* 81 MG PO ONE (17:02)
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
[2018-02-18 17:08] VITALS: BP 137/87
--- OUTSIDE RECORDS SUMMARY | 2018-02-18 17:30 | XMS REPORT ---
:1960 External Reference #:[id number] [facility] Address [address] [place] [address] Phone [phone] Care Team Providers Name Role Phone HCP given Primary Care Physician Unavailable Payers Type Date Identification Payment Subscriber Numbers Provider Health Maintenance Effective: Policy Number: Rodolfo/Sarabjit Chandra Organization (O) 04/29/2014 [id number] (FERCHO MGD) Ynes PayID: [id number] [address] [address] [place] [address] Problems Date Description Provider Status Onset: 01/20/2016 [...] Heroin Exercise Type/Frequency Exercises rarely Age 1st [place] 19 Years Old Allergies, Adverse Reactions, Alerts Date Description Reaction Status Severity Comments 01/20/2016 Codeine active Rx was long time ago 01/29/2017 Doxycycline active recurrent severe balanitis 12/30/2015 NKDA inactive Medications Medication Date Status Form Strength Qnty SIG Indications Ordering Provider Naproxen 11/03/ Active Tablets 500mg 60tab take one M54.2 Leticia 2016 s tablet by [place]ino mouth twice a [...] 02/25/ Active Tablets 1 by mouth Unknown 2016 once daily prn for muscle cramps Freestyle Lite 05/06/ Active Strips 100un use as E11.65 Leticia Test 2016 its directed for Chino measuring M.D. blood sugar 1-2x/day and as needed Freestyle 05/06/ Active Misc 100un use as E11.65 Leticia Lancets 2016 its directed once [place]ino, a day for M.D. blood sugar monitoring Omeprazole 04/01/ Active Capsules 20mg 30cap take one K21.9 Leticia 2015 s capsule by [place]ino mouth up to M.D. once a day, as needed for acid reflux Suboxone 12/19/ Active Film 8-2mg 45uni 01/30 film F11.20 Leticia 2015 ts 2x/day; for [place]ino chronic pain M.D. and opiate dependence; suboxone prescriber# [id number] M54.2 PT For Neck Pain 09/08/ Hx please evaluate M54.2 Leticia 2016 - and treatChino M.D. 10/08/ instruct in hep, 2017 modalities prn. Naproxen Sodium 05/02/ Hx Tablets 220mg as directed as Unknown 2016 - needed 2016 Nystatin 02/02/ Hx Cream 090038 30uni apply to Leticia 2016 - Unit/G ts affected area(s) Rosi Magana 02/25/ M on penis three 2017 times a day as needed Nystatin-Triamcinolon 01/29/ Hx Cream 946377 30gm apply to N48.1 Leticia e 2016 - -0.1Un affected areas Rosi Magana 02/25/ it/GM- on penis 3 times 2017 % a day as needed until clear Lidocaine 01/26/ Hx Ointment 5% 35.44 apply to the A07.0 [facility], 2017 - 0gm affected area Joselo Foster.O. 01/29/ three times a 2016 day for pain Fluconazole 01/21/ Hx Tablets 150mg 1tabs 1 by mouth once A07.0 [facility] , 2016 - Cristian D.O. 2016 Lidocaine HCL 01/21/ Hx Gel 2% 30ml apply to head of A07.0 [facility], 2016 - penis 4 times a Cristian D.O. 01/26/ day as needed 2016 for pain Clindamycin Phosphate 01/21/ Hx Lotion 1% 180ml apply 1 7.0 [facility], 2016 - application Cristian D.O. 01/26/ topically to 2017 affected area 2 times per day Doxycycline Hyclate 01/20/ Hx Tablets DR 100mg 56tab take 1 tablet by A69.2 Nick 2016 - s mouth 2 times 0 Cristian D.O. 01/30/ per day for 28 2016 days for lyme disease Cyclobenzaprine HCL 01/18/ Hx Tablets 10mg 30tab 1 by mouth [facility] - s times a day as Joselo Foster.O[place]ayton 01/28/ needed as needed 2016 for muscle spasms. Fluticasone 01/05/ Hx Suspension 50mcg/ 16uni 2 sprays into J31.0 Silcoff, Propionate 2017 - Act ts each nostril Rosi Magana 01/28/ once daily for 2017 nasal congestion; stop using all other nasal sprays within 1 week of starting this Simvastatin 11/03/ Hx Tablets 20mg 30tab take one tablet E11.6 Silconorberto, 2015 - s by mouth every 5 Rosi Magana 01/18/ day to lower 2017 cholesterol E11.9 Nystatin 10/09/2016 - Hx Cream 400546Bcgk/GM 30units apply to B37.42 Silcoff, 10/19/2016 affected [...] 07/06/2016 every day for [place], cholesterol M.D. Ondansetron 03/03/2016 - Hx Tablets 4mg 15tabs 1 by mouth R11.0 Silcoff , 02/06/2018 Dispers every 4 hours [place], as needed for M.D. nausea/vomitin g R11.2 Tamsulosin HCL 02/03/2016 - Hx Capsules 0.4mg 30caps 1 pill daily R35.0 Silcoff, 02/03/2016 1/2 hour [place]ino, after same M.D. meal each day; for enlarged prostate; stop after 2 weeks if not helpful Terbinafine HCL 01/20/2016 - Hx Tablets 250mg 84tabs 1 by mouth B35.1 Silcoff, 02/24/2016 every day for [place]ino, 12 wks; need M.D. blood tests monthly (after 4wks and after 8wks) while taking this medication Naproxen 01/20/2016 - Hx Tablets 500mg 60tabs 1 by mouth M25.50 Silcoff , 09/08/2016 twice a day [place], as needed for M.D. neck and joint pain [...] CPT Code Status Date Vaccine Lot # [id number] Given 08/10/2017 Influenza Virus Vaccine, Quadrivalent, Split, [id number] Preservative Free [id number] Given 05/26/2017 Adacel or Boostrix, TDaP [id number] Given 08/05/2016 Influenza Virus Vaccine, Quadrivalent, Split, [id number] Preservative Free 49523 Given 04/01/2016 Adacel or Boostrix, TDaP [id number] Vital Signs Date Vital Result Comment 02/07/2018 BP Systolic 128 mmHg BP Diastolic 70 mmHg Weight 238.00 lb 01/07/2018 BP Systolic 130 mmHg BP Diastolic 78 mmHg Weight 243.00 lb 12/06/2017 BP Systolic 126 mmHg BP Diastolic 68 mmHg 2017 BP Systolic 120 mmHg BP Diastolic [...] Test Date Test Result H/L Range Note Laboratory test finding 01/07/2018 Hemoglobin A1c 6.2 Lipid Profile (Trig/Chol/HDL) 2017 Triglycerides 126 mg/dL 1 Cholesterol 145 mg/dL 2 HDL Cholesterol 42.1 mg/dL 3 LDL Cholesterol 78 mg/dL 4 Urine Microalbumin Random 2017 Ur Microalbumin (mg/L) < 15.0 mg/L Urine Creatinine 256.40 mg/dL Urine Microalbumin/Creatinine TNP ug/mg <31 5 Urine Drug Screen Inhouse 09/08/2017 Ua Cocaine - Ua Opiates - Ua Amphetamines - Urine Methanphetamines - Urine Benzodiazepines QN [place] - Urine Oxycodone QL - Laboratory test [...] 7 Ua Ketones - 7 Ua Specific [place]ove 1.005 7 Ua Blood - 7 Ua [...] - Urine Methanphetamines - Urine Benzodiazepines QN [place] - Urine Oxycodone QL - Laboratory test 09/08/2016 Hemoglobin A1c 6.3 finding Laboratory test 07/09/2016 Clotest SEE RESULT 27, 28 finding BELOW Laboratory test 07/09/2016 Surgical Pathology SEE RESULT 29, 30 finding BELOW Laboratory [...] Glucose 127 mg/dL High 74 -106 39 Urine Drug Screen Inhouse 03/02/2016 Ua Cocaine - Ua Opiates - Ua Amphetamines - Urine Methanphetamines - Urine Benzodiazepines QN [place] - Urine Oxycodone QL - Laboratory test finding 03/02/2016 Hemoglobin A1c 6.6 CBC Auto Diff 02/28/2016 White Blood Count [...] 42 Ua Ketones - 42 Ua Specific [place]ove 1.010 42 Ua Blood - 42 Ua [...] - Urine Methanphetamines - Urine Benzodiazepines QN [place] - Urine Oxycodone QL - Urine Drug Screen Inhouse 01/20/2016 Ua Cocaine - Ua Opiates - Ua Amphetamines - Urine Methanphetamines - Urine Benzodiazepines QN [place] - Urine Oxycodone QL - Laboratory test [...] Nonreactive Nonreactive Inr/Protime 12/30/2015 Inr 1.08 0.89-1.11 Laboratory test finding 2015 CSF Glucose 70 mg/dL 40-70 CSF Total Protein 38 mg/dL 15-45 CSF Culture & Gram Stain SEE RESULT BELOW 46 CSF Cell Count 2015 Body Fluid Appearance Clear Body Fluid Color Colorless CSF Tube # 4 Body Fluid Volume 1.5 mL Body Fluid WBC 1 Body Fluid RBC 0 Body Fluid Lymph 9 Body Fluid [place] 5 Body Fluid Total Cells Counted 14 Body Fluid Comment (SEE NOTE) 47 Fluid Reviewed By MD (SEE NOTE) 48 CBC Auto Diff 2015 White Blood Count [...] Blood Cells % 0 Comp Metabolic Panel 2015 Sodium 134 mmol/L [...] Egfr Non- 81.9 >60 Egfr 105.4 >60 49 Laboratory test finding 11/02/2015 C Reactive [...] screening test (e.g., EIA). Test Performed by: [place] [address] Seafood Manager: Ghassan Chavez II, M.D., Ph.D. 11 Acute inflammation: >10.00 12 ADDITIONAL INFORMATION This test was developed and its performance characteristics determined by [facility] in a manner consistent with CLIA requirements. This test has not been cleared or approved by the U.S. Food and Drug Administration. 13 ADDITIONAL INFORMATION This test was developed and its performance characteristics determined by [facility] in a manner consistent with CLIA requirements. This test has not been cleared or approved by the U.S. Food and Drug Administration. 14 ADDITIONAL INFORMATION This test was developed and its performance characteristics determined by [facility] in a manner consistent with CLIA requirements. This test has not been cleared or approved by the U.S. Food and Drug Administration. Test Performed by: [facility] [place] [address] Seafood Manager: Ghassan Chavez II, M.D., Ph.D. 15 Engineering Mechanic: [id number] Holly Im 16 Engineering Mechanic: [id number] Holly Im 17 [id number] 18 SEE RESULT BELOW Name: MARCELLO SAENZ : [address]: Shira Apodaca MD Acct: [id number] Unit: [id number] AGE: 56 Location: [facility] Re01/15/17 SEX: M Status: DEP ER SPEC: [id number] GABINO: 01/15/17-[address] [facility] [address]: Shira Apodaca MD REQ: [id number] RECD: 01/16/17-1221 STATUS: ADIEL STAUFFER DR: Chino Kelly MD _ SOURCE: URINE SPDESC: ORDERED: Urine Culture COMMENTS: [id number] Procedure Result Reported Site Urine Culture Final 01/17/17- 1346 ML No Growth (<1,000 CFU/mL) * ML - [facility] ([facility]) . END OF REPORT * ML=Testing performed at [place] Lab [place] [address] Wilberto Crum M.D. Director [facility] # [id number] 19 Engineering Mechanic: [id number] ANALILIA HOUSTON 20 Engineering Mechanic: [id number] Wooden Anju 21 Engineering Mechanic: [id number] Wooden Anju 22 SEE RESULT BELOW Name: MARCELLO SAENZ : [address]: Darell Carroll MD Acct: [id number] Unit: [id number] AGE: 56 Location: ED Re11/21/16 SEX: M Status: REG ER SPEC: [id number] GABINO: 11/21/[address]: Darell Carroll MD REQ: [id number] RECD: 11/21/16 STATUS: ADIEL STAUFFER DR: Chino Kelly MD _ SOURCE: NASAL SPDESC: ORDERED: Flu A B Request Procedure Result Reported Site Rapid Influenza A B Request Final 11/21/16- 0230 ML Specimen received for Influenza A/B Molecular testing * ML - [facility] ([facility]) . END OF REPORT * ML=Testing performed at Main Lab DEPARTMENT OF PATHOLOGY, [address] [place] [address] Wilberto Crum M.D. Director [facility] # [id number] 23 SEE RESULT BELOW Name: MARCELLO SAENZ : [address]: Darell Carroll MD Acct: [id number] Unit: [id number] AGE: 56 Location: ED Re11/21/16 SEX: M Status: REG ER SPEC: [id number] GABINO: 11/21/16-[address] [facility] [address]: Darell Carroll MD REQ: [id number] RECD: 11/21/16 STATUS: ADIEL STAUFFER DR: Chino Kelly MD _ SOURCE: THROAT SPDESC: ORDERED: Strep A Request Procedure Result Reported Site Rapid Strep A Request Final 11/21/16- 0230 ML Specimen received for Rapid Strep A Molecular testing * ML - MAIN LAB ([facility]) . END OF REPORT * ML=Testing performed at Main Lab DEPARTMENT OF PATHOLOGY, [address] [place] [address] Wilberto Crum M.D. Director [facility] # [id number] 24 Because ethnic data is not always [...] submitted in 7-14 days. Test Performed by: [facility] [place] [address] Seafood Manager: Ghassan Chavez II, M.D., Ph.D. 26 Because [...] 5 Kidney failure <15 (or dialysis) 27 [id number] 28 SEE RESULT BELOW Name: MARCELLO SAENZ : [address]: Kahlil Sauceda MD Acct: [id number] Unit: [id number] AGE: 55 Location: [facility] Re07/09/16 SEX: M Status: REG REF SPEC: [id number] GABINO: 07/09/16-[address] [facility] [address]: Kahlil Sauceda MD REQ: [id number] RECD: 07/09/16 STATUS: ADIEL STAUFFER DR: Chino Kelly MD _ SOURCE: GAS ANTRUM SPDES: ORDERED: Clotest COMMENTS: [id number] Procedure Result Reported Site Clotest Final 07/10/16- 0752 ML Clotest Negative * ML - [facility] ([facility]) . END OF REPORT * ML=Testing performed at Main Lab DEPARTMENT OF PATHOLOGY, [address] [place] [address] Wilberto Crum M.D. Director [facility] # [id number] 29 [id number] 30 SEE RESULT BELOW Name: MARCELLO SAENZ : [address]: Kahlil Sauceda MD Acct: [id number] Unit: [id number] AGE: 55 Location: [facility] Re07/09/16 SEX: M Status: DEP REF SPEC: [id number] GABINO: 07/09/16-[address] [facility] [address]: Kahlil Sauceda MD REQ: [id number] RECD: 07/09/169607 STATUS: CRYSTAL STAUFFER DR: Chino Kelly MD _ ORDERED: LEVEL IV COMMENTS: [id number] FINAL DIAGNOSIS Colon, descending, biopsy: -- Tubular [...] performed at Main Lab DEPARTMENT OF PATHOLOGY, [address] [place] [address] Wilberto Crum M.D. Director [facility] # [id number] 31 Dr. Kelly aware 32 FASTING 12 [...] 160-189 mg/dL Very High: >189 mg/dL 39 Engineering Mechanic: [id number] ALAINA BRAUN 40 Because ethnic data is not [...] void, clear, yellow 43 Test Performed by: [address] [address] Seafood Manager: Ghassan Chavez II, M.D., Ph.D. 44 REFERENCE VALUE 15.0 - 30.0 Test Performed by: [place] [address] Seafood Manager: Ghassan Chavez II, M.D., Ph.D. 45 Negative in normal individuals. May be negative in dermatitis herpatiformis or celiac disease patients adhering to a gluten free diet. ADDITIONAL INFORMATION Laboratory developed test. Test Performed by: [place] [address] Seafood Manager: Ghassan Chavez II, M.D., Ph.D. 46 SEE RESULT BELOW Name: MARCELLO SAENZ Corazon : [address]: Jem Peña MD Acct: [id number] Unit: [id number] AGE: 55 Location: ED Re11/03/15 SEX: M Status: DEP ER SPEC: [id number] GABINO: 11/03/15-[address] [facility] [address]: Jem Peña MD REQ: [id number] RECD: 11/03/15 STATUS: ADIEL STAUFFER DR: Chino Kelly MD _ SOURCE: CSF SPDESC: ORDERED: CSF Cult/GS Procedure Result Reported Site CSF Gram Stain Final 11/04/15- 0742 ML 1+ Epithelial Cells No Polys Observed No Organisms Seen Preparation By Cytospin Smear CSF Culture Final 11/07/15- 0849 ML No Growth Day 4 * ML - [facility] ([facility]) . END OF REPORT * ML=Testing performed at Main Lab DEPARTMENT OF PATHOLOGY, [address] [place] [address] Wilberto Crum M.D. Director [facility] # [id number] 47 Differential performed on concentrated smear. 48 No evidence of malignancy or acute inflammatory response. No microorganisms. Reviewed by Dr. Crum 49 Because ethnic data is not always readily [...] 15-29 5 Kidney failure <15 (or dialysis) 50 Acute inflammation: >10.00 51 Because ethnic [...] Procedures Date CPT Code Description Status Comment 10/19/2017 Diabetic Retinal Eye Exam Completed no retinopathy (Dr Clement ) 10/09/2017 Diabetic Foot Exam Completed normal DP and TP pulses, no sores or ulcers, normal monofilament and vibration sense 05/03/2017 47725 Electrocardiogram Complete Completed 06/29/2016 Colonoscopy Completed 2016: 1 small polyp (TA); fu 5yrs Encounters Type Date Location Provider CPT E/M Dx Office Visit 01/07/2018 2:00p Main Office Chino Kelly M.D. 30511 F11.20 M54.2 E11.9 Office Visit 12/06/2017 11:45a Main Office Chino Kelly M.D. 49611 F11.20 E11.9 S06.0x1D Office Visit 2017 2:30p Main Office Chino Kelly M.D. 53652 F11.20 M54.2 E11.9 Z71.89 Office Visit 10/09/2017 9:45a Main Office Chino Kelly M.D. 48836 E11.9 F11.20 R11.0 Office Visit 09/08/2017 10:30a Main Office Chino Kelly M.D. 26818 E11.9 F11.20 M54.2 Office Visit 08/10/2017 9:45a Main Office Chino Kelly M.D. 54885 F11.20 R11.0 Z41.8 Z23 Office Visit 07/07/2017 11:30a Main Office Chino Kelly M.D. 94748 F11.20 E11.9 Office Visit 06/04/2017 10:15a Main Office Chino Kelly M.D. 65685 E11.9 F11.20 L91.8 Office Visit 05/03/2017 11:00a Main Office Chino Kelly M.D. 67369 F11.20 L72.3 E11.9 Office Visit 03/30/2017 10:00a Main Office Chino Kelly M.D. 42928 F11.20 M54.2 E11.9 Office Visit 02/26/2017 10:15a Main Office Chino Kelly M.D. 04111 E11.9 F11.20 Office Visit 01/29/2017 10:15a Main Office Chino Kelly M.D. 97620 N48.1 A69.20 F11.20 Office Visit 01/21/2017 9:45a Main Office Cristian Romero D.O. 76489 A07.0 Office Visit 01/18/2017 9:45a Main Office Cristian Romero D.O. 51714 R35.0 R25.2 M54.2 G43.119 R53.83 Office Visit 01/05/2017 9:30a Main Office Chino Kelly M.D. 39319 F11.20 Z71.51 J31.0 R25.2 H10.213 Office Visit 12/04/2016 9:30a Main Office Chino Kelly M.D. 39882 E11.9 F11.20 R11.0 G43.009 Z71.51 Office Visit 2016 9:30a Main Office Chino Kelly M.D. 05809 F11.20 R11.0 E11.9 G47.33 G47.00 Office Visit 10/09/2016 9:30a Main Office Chino Kelly M.D. 72518 B37.42 F11.20 K21.9 R11.0 G43.009 E11.65 Office Visit 09/08/2016 3:45p Main Office Cristian Romero D.O. 47643 E11.65 F11.20 K21.9 R11.0 G43.009 Office Visit 08/05/2016 2:30p Main Office Chino Kelly M.D. 08835 F11.20 E11.65 K21.9 R11.0 G43.009 Z71.89 Z23 Office Visit 07/08/2016 1:30p Main Office Chino Kelly M.D. 13256 F11.20 G47.33 S92.355D K76.0 E66.9 K21.9 R11.0 E11.65 G43.009 Office Visit 06/03/2016 4:15p Main Office Chino Kelly M.D. 39743 E11.65 E66.9 F11.20 G47.33 S92.355D Office Visit 05/06/2016 11:15a Main Office Chino Kelyl M.D. 77988 E11.65 R10.11 K76.0 E66.9 F11.20 M79.1 G47.33 Z68.32 Office Visit 04/01/2016 11:00a Main Office Chino Kelly M.D. 50849 Z23 F11.20 R10.11 K76.0 E11.65 E66.9 Z13.220 R53.83 M79.1 K21.9 Z23 Office Visit 03/02/2016 11:15a Main Office Chino Kelly M.D. 17863 F11.20 K76.0 R10.11 E66.9 E11.65 B35.1 R73.9 Office Visit 02/03/2016 11:30a Main Office Chino Kelly M.D. 06109 F11.20 R35.0 B35.1 M54.2 M25.50 Office Visit 01/20/2016 11:00a Main Office Chino Kelly M.D. 52483 F11.20 B35.1 M25.50 G43.009 Z51.81 Office Visit 12/30/2015 11:30a Main Office Chino Kelly M.D. 07887 F11.20 M54.2 M54.5 F41.9 R74.0 Office Visit 11/27/2015 12:55p Main Office Chino Kelly M.D. 41276 F11.20 M54.5 F41.9 R74.0 E80.7 G93.0 M54.2 Plan of Care 02/07/2018 - Chino Kelly M.D.F11.20 Opioid dependence, uncomplicatedFollow up:RTO 1mo recheck Suboxone. Get fasting bloodwork in early February.E11.9 Type 2 diabetes mellitus without complications
== END 2018-02-18 17:25 | disposition home or self-care (01) ==
LOC: UCEAST 16:55
DX: R07.89 Other chest pain (principal); E78.5 Hyperlipidemia, unspecified; I11.9 Hypertensive heart disease without heart failure; K21.9 Gastro-esophageal reflux disease without esophagitis; F41.9 Anxiety disorder, unspecified; Z87.891 Personal history of nicotine dependence
CPT/HCPCS: 93005; 99212; A9270-GY; G0463

== ENCOUNTER 2018-02-18 17:44 | Emergency (ER) | payer OTHER ==
[2018-02-18 18:25] LABS: ABS Basophils 0.1 10^3/ul (0-0.2); ABS Eosinophils 0.1 10^3/ul (0-0.6); ABS Lymphocytes 1.7 10^3/ul (1.0-4.8); ABS Monocytes 0.4 10^3/ul (0-0.8); ABS Neutrophils 4.7 10^3/ul (1.5-7.7); ABS Nucleated RBC 0 10^3/ul; Eosinophil % 1.8 % (0-6); Hematocrit 42 % (42-52); Hemoglobin 14.5 g/dl (14.0-18.0); Lymphocyte % 23.8 % (25-47); Mean Corpuscular HGB Conc 35 g/dl (31-36); Mean Corpuscular Hemoglobin 31 pg (27-31); Mean Corpuscular Volume 88 fL (80-94); Mean Platelet Volume 8.1 um3 (7.4-10.4); Nucleated Red Blood Cells % 0; Platelet Count 127 10^3/ul (150-450); Red Blood Count 4.74 10^6/ul (4.0-5.4); Red Cell Distribution Width 14 % (10.5-15); White Blood Count 6.9 10^3/ul (3.5-10.8)
[2018-02-18 18:43] LABS: INR 1.04 (0.77-1.02)
[2018-02-18 18:52] LABS: EGFR Non-African American 86.5 (>60)
--- NOTE | 2018-02-18 18:55 | RAD ---
HISTORY: Chest pain COMPARISONS: October 04, 2016 VIEWS: 1: frontal portable view of the chest at 6:36 PM FINDINGS: LINES AND TUBES: None. CARDIOMEDIASTINAL SILHOUETTE: The cardiomediastinal silhouette is normal for portable technique. PLEURA: The costophrenic angles are sharp. No pleural abnormalities are noted. LUNG PARENCHYMA: The lungs are clear. ABDOMEN: The upper abdomen is clear. There is no subphrenic gas. BONES AND SOFT TISSUES: No bone or soft tissue abnormalities are noted. IMPRESSION: NO ACTIVE CARDIOPULMONARY DISEASE.
[2018-02-18] MEDS ORDERED: Acetaminophen TAB* 325 MG PO ONE (19:23)
[2018-02-18 22:36] VITALS: BP 143/90
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
== END 2018-02-18 22:37 | disposition home or self-care (01) ==
LOC: ED 17:44
DX: R07.89 Other chest pain (principal); R53.83 Other fatigue; F43.0 Acute stress reaction; Z87.891 Personal history of nicotine dependence; Z87.19 Personal history of other diseases of the digestive system
CPT/HCPCS: 36415; 71045; 80053; 83605; 84484; 85025; 85610; 85730; 93005; 99282; A9270-GY

== ENCOUNTER 2018-03-13 02:16 | Emergency (ER) | payer OTHER ==
[2018-03-13 02:24] VITALS: BP 122/80
[2018-03-13] MEDS ORDERED: Amoxicillin PO (*) 250 MG CAP PO ONE (02:39)
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
== END 2018-03-13 02:52 | disposition home or self-care (01) ==
LOC: ED 02:16
DX: K08.89 Other specified disorders of teeth and supporting structures (principal); K05.30 Chronic periodontitis, unspecified; R73.03 Prediabetes; I20.9 Angina pectoris, unspecified; G47.30 Sleep apnea, unspecified; K21.9 Gastro-esophageal reflux disease without esophagitis; F32.9 Major depressive disorder, single episode, unspecified; Z88.1 Allergy status to other antibiotic agents; Z87.891 Personal history of nicotine dependence
CPT/HCPCS: 99281; A9270-GY

== ENCOUNTER 2018-04-29 12:45 | Emergency (ER) | payer OTHER ==
--- OUTSIDE RECORDS SUMMARY | 2018-04-29 12:55 | XMS REPORT ---
:1960 External Reference #:[id number] Author Organization [facility] Address [address] [place] [address] Phone [phone] Care Team Providers Name Role Phone HCP given Primary Care Physician Unavailable Payers Type Date Identification Payment Subscriber Numbers Provider Health Maintenance Effective: Policy Number: Rodolfo/Sarabjit Chandra Organization (O) 04/29/2014 [id number] e (FERCHO MGD) Ynes PayID: [id number] [address] [address] [place] [address] Problems Date Description Provider Status Onset: 01/20/2016 [...] Heroin Exercise Type/Frequency Exercises rarely Age 1st [place] 19 Years Old Allergies, Adverse Reactions, Alerts Date Description Reaction Status Severity Comments 01/20/2016 Codeine active Rx was long time ago 01/29/2017 Doxycycline active recurrent severe balanitis 12/30/2015 NKDA inactive Medications Medication Date Status Form Strength Qnty SIG Indications Ordering Provider Ibuprofen Active Tablets 800mg 90tabs 1 cap by M25.50 Leticia , 8 mouth Israel MaganaDClayton three times a day as needed for pain M54.2 CBD Oil Pills 04/08/2018 Active prn use Unknown From [facility] Rosuvastatin 2017 Active Tablets 5mg 30ta take one tablet E11. Leticia, Calcium bs by mouth every 9 Chino, day to lower M.D. choloesterol and reduce risk of heart disease Multivitamin 05/02/2017 Active Tablets 1 by mouth every Unknown Adult day B Complex 02/25/2017 Active Tablets 1 by mouth once Unknown daily prn for muscle cramps Freestyle Lite 05/06/2016 Active Strips 100u use as directed E11. Leticia, Test nits for measuring 65 [place], blood sugar M.D. 1-2x/day and as needed Freestyle 05/06/2016 Active Misc 100u use as directed E11. Leticia, Lancets nits once a day for 65 [place], blood sugar M.D. monitoring Omeprazole 04/01/[address] 20mg 30ca take one capsule K21. Leticia, ps by mouth up to 9 [place]ino, once a day, as M.D. needed for acid reflux Suboxone 12/19/2015 Active Film 8-2m 45un 3/4 film 2x/day; F11. Leticia , g its for chronic pain 20 [place], and opiate M.D. dependence; suboxone prescriber# [id number]; Rx due 04/13/18 M54.2 Chlorhexidine 03/13/ Hx Solution 0.12% Rinse with 1/2 Unknown Gluconate 2017 - ounce by mouth 04/08/ for 30 seconds 2017 then spit out. use twice Amoxicillin 03/13/ Hx Capsules 500mg take 1 capsule Unknown 2017 - by mouth three 04/08/ times a day 2017 Ketorolac 02/19/ Hx Tablets 10mg 15tab take 1 tablet by Silcoff, Tromethamine 2018 - s mouth every 6 Rosi Magana 03/19/ hours if needed 2018 for pain; take for no more than 5 days Naproxen 11/03/ Hx Tablets 500mg 60tab take one tablet M54.2 Leticia 2016 - s by mouth twice a Rosi Magana 04/09/ day as needed 2018 for neck pain, take with food PT For Neck Pain 09/08/ Hx please evaluate Emmy Kelly 2016 - and treatChino M.D. 10/08/ instruct in hep, 2017 modalities prn. Naproxen Sodium 05/02/ Hx Tablets 220mg as directed as Unknown 2017 - needed 2016 Nystatin 02/02/ Hx Cream [id number] 30uni apply to Leticia 2016 - Unit/G ts affected area(s) Rosi Magana 02/25/ M on penis three 2017 times a day as needed Nystatin-Triamcinolon 01/29/ Hx Cream [id number] 30gm apply to N48.1 cheikh Kelly 2016 - -0.1Un affected areas Rosi Magana 02/25/ it/GM- on penis 3 times 2017 % a day as needed until clear Lidocaine 01/26/ Hx Ointment 5% 35.44 apply to the A07.0 Nick 2016 - 0gm affected area Cristian, D.O. 01/29/ three times a 2016 day for pain Fluconazole 01/21/ Hx Tablets 150mg 1tabs 1 by mouth once A07.0 Nick 2016 - Cristian, D.O. 2016 Lidocaine HCL 01/21/ Hx Gel 2% 30ml apply to head of A07.0 Nick 2016 - penis 4 times a Cristian, D.O. 01/26/ day as needed 2016 for pain Clindamycin Phosphate 01/21/ Hx Lotion 1% 180ml apply 1 A07.0 Nick 2016 - application Cristian, D.O. 01/26/ topically to 2017 affected area 2 times per day Doxycycline Hyclate 01/20/ Hx Tablets DR 100mg 56tab take 1 tablet by Toshia2 Nick 2016 - s mouth 2 times 0 Cristian, D.O. 01/30/ per day for 28 2016 days for lyme disease Cyclobenzaprine HCL 01/18/ Hx Tablets 10mg 30tab 1 by mouth three M54.2 Nick, 2017 - s times a day as Cristian, [...] Tablets 20mg 30tab take one tablet E11.6 Silariela, 2015 - s by mouth every 5 Rosi Magana day to lower 2016 cholesterol E11.9 Nystatin 10/09/2016 - Hx Cream 899729Ihed/GM 30units apply to B37.42 Silconorberto, 10/19/2016 affected [place] area(s) on M.D. penis three times a day as needed Ibuprofen 09/08/2016 - Hx Tablets 800mg 90tabs 1 cap by M25.50 Nicolek, 11/02/2017 mouth three Cristian, D.O. times a [...] CPT Code Status Date Vaccine Lot # [id number] Given 08/10/2017 Influenza Virus Vaccine, Quadrivalent, Split, [id number] Preservative Free 16837 Given 05/26/2017 Adacel or Boostrix, TDaP [id number] Given 08/05/2016 Influenza Virus Vaccine, Quadrivalent, Split, [id number] Preservative Free 39759 Given 04/01/2016 Adacel or Boostrix, TDaP [id number] Vital Signs Date Vital Result Comment 04/09/2018 BP Systolic 122 mmHg BP Diastolic 70 mmHg 03/14/2018 BP Systolic 124 mmHg BP Diastolic 80 mmHg Weight 246.00 lb with work boots 02/07/2018 BP Systolic 128 mmHg BP Diastolic [...] Result H/L Range Note Laboratory test finding 02/18/2018 Troponin-I (TnI) 0.00 ng/mL <0.04 Laboratory test finding 02/18/2018 Troponin-I (TnI) 0.00 ng/mL <0.04 Laboratory test finding 02/18/2018 Lactic Acid 1.2 mmol/L 0.5-2.0 1 Comp Metabolic Panel 02/18/2018 Sodium 137 mmol/L 133-145 Potassium 3.9 mmol/L 3.5-5.0 Chloride 102 mmol/L 101-111 Co2 Carbon Dioxide 30 mmol/L 22-32 Anion Gap 5 mmol/L 2-11 Glucose 118 mg/dL High 70-100 Blood Urea Nitrogen 14 mg/dL 6-24 Creatinine 0.91 mg/dL 0.67-1.17 BUN/Creatinine Ratio 15.4 8-20 Calcium 9.9 mg/dL 8.6-10.3 Total Protein 7.2 g/dL 6.4-8.9 Albumin 4.5 g/dL 3.2-5.2 Globulin 2.7 g/dL 2-4 Albumin/Globulin Ratio 1.7 1-3 Total Bilirubin 1.20 mg/dL High 0.2-1.0 Alkaline Phosphatase 91 U/L 34-104 Alt 57 U/L High 7-52 Ast 44 U/L High 13-39 Egfr Non- 86.5 >60 Egfr 111.2 >60 2 Laboratory test finding 01/07/2018 Hemoglobin A1c 6.2 Lipid Profile (Trig/Chol/HDL) 2017 Triglycerides 126 mg/dL 3 Cholesterol 145 mg/dL 4 HDL Cholesterol 42.1 mg/dL 5 LDL Cholesterol 78 mg/dL 6 Urine Microalbumin Random 2017 Ur Microalbumin (mg/L) < 15.0 mg/L Urine Creatinine 256.40 mg/dL Urine Microalbumin/Creatinine TNP ug/mg <31 7 Urine Drug Screen Inhouse 09/08/2017 Ua Cocaine - Ua Opiates - Ua Amphetamines - Urine Methanphetamines - Urine Benzodiazepines QN [place] - Urine Oxycodone QL - Laboratory test [...] Egfr Non- 90.2 >60 Egfr 116.1 >60 8 Laboratory test finding 01/21/2017 Creatine Kinase(CK) 299 U/L High 10- 223 Urine Micro Inhouse 01/18/2017 Ua WBC occ 9 Ua RBC - 9 Ua Casts 1 9 Ua Epi occ 9 Ua Other - 9 Ua Glucose - 9 Ua Bilirubin - 9 Ua Ketones - 9 Ua Specific Dale 1.005 9 Ua Blood - 9 Ua PH (omitted) 9 Ua Protein - 9 Ua Urobilinogen - 9 Ua Nitrite - 9 Ua Leukocytes - 9 Culture Urine Inhouse 01/18/2017 Colonies negative 9 CBC Auto Diff 01/18/2017 White Blood Count [...] Egfr Non- 80.7 >60 Egfr 103.7 >60 10 Laboratory test finding 01/18/2017 Magnesium 1.9 mg/dL 1.9-2.7 TSH (Thyroid Stim Horm) 3.36 mcIU/mL 0.34-5.60 Vitamin D Total 25(Oh) 24.3 ng/mL Low 30-50 Vitamin B12 882 pg/mL 180-914 11 Lyme Western Blot 01/18/2017 Lyme Disease IgG Ab WB Negative Negative Lyme Disease IgG Bands Present p41, p23, kDa Lyme Disease IgM Ab WB Positive Negative Lyme Disease IgM Bands Present p41, p23, kDa Lyme Disease Interpretation See Comment 12 Laboratory test finding 01/18/2017 Folic Acid (Folate) > 20.00 ng/mL & gt;3.99 C Reactive Protein 1.06 mg/L < 5.00 13 Creatine Kinase(CK) 497 U/L High 10-223 Erythrocyte Sed Rate 6 mm/Hr 0-20 Phosphorus 4.7 mg/dL 2.5-5.0 Uric Acid 5.6 mg/dL 4.4-7.6 Tick-Borne Panel PCR Blood 01/18/2017 Babesia microti PCR Negative Negative Babesia ducani Negative Negative Babesia divergens/Mo-1 Negative Negative 14 Anaplasma phagocytophilum Negative Negative Ehrlichia chaffeensis Negative Negative Ehrlichia ewingii/canis Negative Negative Ehrlichia muris-like Negative Negative 15 B. miyamotoi PCR, B Negative Negative 16 Rapid Influenza A & B 01/17/2017 Influenza A Molecular NEGATIVE Negative 17 Molecular Influenza B Molecular NEGATIVE Negative Laboratory test 01/17/2017 Point of Care 131 mg/dL High 74-106 18 finding Glucose Laboratory test 01/15/2017 Urine Culture And SEE RESULT 19, 20 finding Sensitivities BELOW Laboratory test 01/15/2017 Point of Care 176 mg/dL High 74-106 21 finding Glucose Laboratory test 12/04/2016 Hemoglobin A1c 6.5 finding Rapid Influenza A 11/21/2016 Influenza A NEGATIVE Negative 22 & B Molecular Molecular Influenza B Molecular NEGATIVE Negative Laboratory test 11/21/2016 Rapid Strep Negative Negative 23 finding Molecular Laboratory test 11/21/2016 Rapid Influenza A B SEE RESULT BELOW 24 finding Antigen Rapid Strep A Request SEE RESULT BELOW 25 CBC Auto Diff 10/19/2016 White Blood Count [...] Egfr Non- 94.3 >60 Egfr 121.3 >60 26 Laboratory test finding 10/19/2016 Lyme Disease Serology Negative Negative 27 CBC Auto Diff 10/05/2016 White Blood Count [...] Egfr Non- 82.9 >60 Egfr 106.7 >60 28 Urine Drug Screen Inhouse 09/08/2016 Ua Cocaine - Ua Opiates - Ua Amphetamines - Urine Methanphetamines - Urine Benzodiazepines QN [place] - Urine Oxycodone QL - Laboratory test 09/08/2016 Hemoglobin A1c 6.3 finding Laboratory test 07/09/2016 Surgical Pathology SEE RESULT 29, 30 finding BELOW Laboratory test 07/09/2016 Clotest SEE RESULT 31, 32 finding BELOW Laboratory test 06/03/2016 Hemoglobin A1c 6.4 finding Laboratory test 05/06/2016 Glucose Quantitative 196 33 finding Laboratory test 04/08/2016 TSH (Thyroid Stim 1.90 ?IU/mL 0.34-5.60 34 finding Horm) Creatine Kinase(CK) 191 U/L 10-223 35 Urine Microalbumin Random 04/08/2016 Ur Microalbumin (mg/L) < 5.0 mg/L Urine Creatinine 240.05 mg/dL Urine Microalbumin/Creatinine TNP ug/mg <31 36 Lipid Profile (Trig/Chol/HDL) 04/08/2016 Triglycerides 252 mg/dL 37 Cholesterol 156 mg/dL 38 HDL Cholesterol 29.6 mg/dL 39 LDL Cholesterol 76 mg/dL 40 Laboratory test finding 03/04/2016 Point of Care Glucose 127 mg/dL High 74 -106 41 Laboratory test finding 03/02/2016 Hemoglobin A1c 6.6 Urine Drug Screen Inhouse 03/02/2016 Ua Cocaine - Ua Opiates - Ua Amphetamines - Urine Methanphetamines - Urine Benzodiazepines QN [place] - Urine Oxycodone QL - CBC Auto [...] Egfr Non- 90.6 >60 Egfr 116.5 >60 42 Laboratory test finding 02/28/2016 Amylase 28 U/L Low 29-103 Lipase 39 U/L 11.0-82.0 C Reactive Protein 2.32 mg/L < 5.00 43 Urine Micro Inhouse 02/18/2016 Ua WBC - 44 Ua RBC - 44 Ua Casts - 44 Ua Epi - 44 Ua Other - 44 Ua Glucose - 44 Ua Bilirubin - 44 Ua Ketones - 44 Ua Specific Dale 1.010 44 Ua Blood - 44 Ua PH 7.0 44 Ua Protein - 44 Ua Urobilinogen - 44 Ua Nitrite - 44 Ua Leukocytes - 44 Liver Function Panel 02/18/2016 Total Protein 6.8 [...] - Urine Methanphetamines - Urine Benzodiazepines QN [place] - Urine Oxycodone QL - Urine Drug Screen Inhouse 01/20/2016 Ua Cocaine - Ua Opiates - Ua Amphetamines - Urine Methanphetamines - Urine Benzodiazepines QN [place] - Urine Oxycodone QL - Laboratory test finding 12/30/2015 Smooth Muscle Antibody Negative Negative 45 Katerina (Antinuclear Antibodies) Negative Negative CBC Auto [...] Laboratory test finding 12/30/2015 Ceruloplasmin 15.9 mg/dL 46 Endomysial Abs Negative Negative 47 Ferritin 156.7 ng/mL 24-336 Iron & Iron Binding Capacity 12/30/2015 Iron 103 g/dL 50-212 Unsaturated Iron Binding 342 g/dL Total Iron Binding Capacity 445 g/dL 250-450 % Iron Saturation 23 % 15-55 Laboratory test finding 12/30/2015 Hepatitis C Antibody Nonreactive Nonreactive Hepatitis B Surface Ag Nonreactive Nonreactive Inr/Protime 12/30/2015 Inr 1.08 0.89-1.11 CSF Cell Count 2015 Body Fluid Appearance Clear Body Fluid Color Colorless CSF Tube # 4 Body Fluid Volume 1.5 mL Body Fluid WBC 1 Body Fluid RBC 0 Body Fluid Lymph 9 Body Fluid [place] 5 Body Fluid Total Cells Counted 14 Body Fluid Comment (SEE NOTE) 48 Fluid Reviewed By MD (SEE NOTE) 49 Laboratory test finding 2015 CSF Glucose 70 mg/dL 40-70 CSF Total Protein 38 mg/dL 15-45 CSF Culture & Gram Stain SEE RESULT BELOW 50 CBC Auto Diff 2015 White Blood Count [...] Egfr Non- 81.9 >60 Egfr 105.4 >60 51 CBC Auto Diff 11/02/2015 White [...] Blood Cells % 0 Comp Metabolic Panel 11/02/2015 Sodium 137 mmol/L [...] Egfr Non- 100.1 >60 Egfr 128.7 >60 52 Laboratory test finding 11/02/2015 C Reactive Protein < 1.00 mg/L &lt ; 5.00 53 CBC Auto Diff 10/26/2015 White Blood Count [...] Blood Cells % 0 Comp Metabolic Panel 10/26/2015 Sodium 133 mmol/L [...] mmol/L 2-11 Ast TNP U/L 13-39 56 Laboratory test finding 10/26/2015 Lipase 55 U/L 11.0-82.0 C Reactive Protein < 1.00 mg/L < 5.00 57 Magnesium TNP mg/dL 1.9-2.7 58 1 [facility] Severe Sepsis and Septic Shock Management Bundle Measure requires all lactic acids initially measuring >2.0 mmol/L be repeated. 2 Because ethnic data is not always readily [...] 15-29 5 Kidney failure <15 (or dialysis) 3 Desirable: <150 Borderline High: 150-199 High: 200-499 Very High: >500 4 Desirable: <200 Borderline High: 200-239 High: >239 5 Low: <40 Desirable: 40-60 High: >60 6 Desirable: <100 Near Optimal: 100-129 Borderline High: 130-159 High: 160-189 Very High: >189 7 Unable to calculate due to low microalbumin 8 Because ethnic data is not always [...] 5 Kidney failure <15 (or dialysis) 9 void, clear, pale yellow 10 Because ethnic data is not always readily [...] 15-29 5 Kidney failure <15 (or dialysis) 11 Normal Range 180 to 914 Indeterminate Range 145 to 180 Deficient Range <145 12 Consistent with early infection with Borrelia burgdorferi. [...] screening test (e.g., EIA). Test Performed by: [facility] [place] [address] Treasurer: Ghassan Chavez II, M.D., Ph.D. 13 Acute inflammation: >10.00 14 ADDITIONAL INFORMATION This test was developed and its performance characteristics determined by [facility] in a manner consistent with CLIA requirements. This test has not been cleared or approved by the U.S. Food and Drug Administration. 15 ADDITIONAL INFORMATION This test was developed and its performance characteristics determined by [facility] in a manner consistent with CLIA requirements. This test has not been cleared or approved by the U.S. Food and Drug Administration. 16 ADDITIONAL INFORMATION This test was developed and its performance characteristics determined by [facility] in a manner consistent with CLIA requirements. This test has not been cleared or approved by the U.S. Food and Drug Administration. Test Performed by: [facility] - [address] [address] Treasurer: Ghassan Chavez II, M.D., Ph.D. 17 Investor Relations Director: [id number] Holly Im 18 Investor Relations Director: [id number] [facility] 19 [id number] 20 SEE RESULT BELOW Name: MARCELLO SAENZ : [address]: Shira Apodaca MD Acct: [id number] Unit: [id number] AGE: 56 Location: [facility] Re01/15/17 SEX: M Status: DEP ER SPEC: [id number] GABINO: 01/15/17-1709 [facility] DR: Shira Apodaca MD REQ: [id number] RECD: 01/16/17-1221 STATUS: ADIEL STAUFFER DR: Chino Kelly MD _ SOURCE: URINE SPDESC: ORDERED: Urine Culture COMMENTS: [id number] Procedure Result Reported Site Urine Culture Final 01/17/17- 1346 ML No Growth (<1,000 CFU/mL) * ML - MAIN LAB ([facility]) . END OF REPORT * ML=Testing performed at Main Lab DEPARTMENT OF PATHOLOGY, [address] [place] [address] Wilberto Crum M.D. Director [facility] # [id number] 21 Investor Relations Director: [id number] ANALILIA HOUSTON 22 Investor Relations Director: [id number] Wooden Anju 23 Investor Relations Director: [id number] Wooden Anju 24 SEE RESULT BELOW Name: MARCELLO SAENZ : [address]: Darell Carroll MD Acct: [id number] Unit: [id number] AGE: 56 Location: ED Re11/21/16 SEX: M Status: REG ER SPEC: [id number] GABINO: 11/21/16-[address]: Darell Carroll MD REQ: [id number] RECD: 11/21/16 STATUS: ADIEL STAUFFER DR: Chino Kelly MD _ SOURCE: NASAL SPDESC: ORDERED: Flu A B Request Procedure Result Reported Site Rapid Influenza A B Request Final 11/21/16- 0230 ML Specimen received for Influenza A/B Molecular testing * ML - MAIN LAB ([facility]) . END OF REPORT * ML=Testing performed at Main Lab DEPARTMENT OF PATHOLOGY, [address] [place] [address] Wilberto Crum M.D. Director [facility] # [id number] 25 SEE RESULT BELOW Name: MARCELLO SAENZ : [address]: Darell Carroll MD Acct: [id number] Unit: [id number] AGE: 56 Location: ED Re11/21/16 SEX: M Status: REG ER SPEC: [id number] GABINO: 11/21/16 [facility] DR: Darell Carroll MD REQ: [id number] RECD: 11/21/16 STATUS: ADIEL STAUFFER DR: Chino Kelly MD _ SOURCE: THROAT SPDESC: ORDERED: Strep A Request Procedure Result Reported Site Rapid Strep A Request Final 11/21/16- 229 ML Specimen received for Rapid Strep A Molecular testing * ML - MAIN LAB ([facility]) . END OF REPORT * ML=Testing performed at Main Lab DEPARTMENT OF PATHOLOGY, [address] [place] [address] Wilberto Crum M.D. Director [facility] # [id number] 26 Because ethnic data is not always [...] 5 Kidney failure <15 (or dialysis) 27 Serologic response to B. burgdorferi infection is not detected, but cannot rule out early infection during which low or undetectable antibody levels to B. burgdorferi may be present. If clinically indicated, a new serum specimen should be submitted in 7-14 days. Test Performed by: [place] [address] Treasurer: Ghassan Chavez II, M.D., Ph.D. 28 Because ethnic data is not always readily [...] 15-29 5 Kidney failure <15 (or dialysis) 29 [id number] 30 SEE RESULT BELOW Name: MARCELLO SAENZ Corazon : [address]: Kahlil Sauceda MD Acct: [id number] Unit: [id number] AGE: 55 Location: [facility] Re07/09/16 SEX: M Status: DEP REF SPEC: [id number] GABINO: 07/09/16-1303 [facility] DR: Kahlil Sauceda MD REQ: [id number] RECD: 07/09/165751 STATUS: CRYSTAL STAUFFER DR: Chino Kelly MD _ ORDERED: LEVEL IV COMMENTS: [id number] FINAL DIAGNOSIS Colon, descending, biopsy: -- Tubular [...] performed at Main Lab DEPARTMENT OF PATHOLOGY, [address] [place] [address] Wilberto Crum M.D. Director [facility] # [id number] 31 [id number] 32 SEE RESULT BELOW Name: MARCELLO SAENZ : [address]: Kahlil Sauceda MD Acct: [id number] Unit: [id number] AGE: 55 Location: END[facility] Re07/09/16 SEX: M Status: REG REF SPEC: [id number] GABINO: 07/09/16-1240 [facility] DR: Kahlil Sauceda MD REQ: [id number] RECD: 07/09/16 STATUS: COMP OTHR DR: Chino Kelly MD _ SOURCE: GAS ANTRUM SPDESC: ORDERED: Clotest COMMENTS: [id number] Procedure Result Reported Site Clotest Final 07/10/16- 0752 ML Clotest Negative * ML - MAIN LAB ([facility]) . END OF REPORT * ML=Testing performed at Main Lab DEPARTMENT OF PATHOLOGY, [address] [place] [address] Wilberto Crum M.D. Director [facility] # [id number] 33 Dr. Kelly aware 34 FASTING 12 HOUR 35 FASTING 12 HOUR 36 Unable to calculate due to low microalbumin 37 Desirable <150 Borderline high 150-199 High 200-499 Very High >500 38 Desirable <200 Borderline high 200-239 High >239 39 Low <40 Desirable: 40-60 High: >60 40 Desirable: <100 mg/dL Near Optimal: 100-129 mg/dL Borderline High: 130-159 mg/dL High: 160-189 mg/dL Very High: >189 mg/dL 41 Investor Relations Director: [id number] ALAINA BRAUN 42 Because ethnic data is not always readily [...] 15-29 5 Kidney failure <15 (or dialysis) 43 Acute inflammation: >10.00 44 void, clear, yellow 45 Test Performed by: [place] [address] Treasurer: Ghassan Chavez II, M.D., Ph.D. 46 REFERENCE VALUE 15.0 - 30.0 Test Performed by: [place] [address] Treasurer: Ghassan Chavez II, M.D., Ph.D. 47 Negative in normal individuals. May be negative in dermatitis herpatiformis or celiac disease patients adhering to a gluten free diet. ADDITIONAL INFORMATION Laboratory developed test. Test Performed by: [place] [address] Treasurer: Ghassan Chavez II, M.D., Ph.D. 48 Differential performed on concentrated smear. 49 No evidence of malignancy or acute inflammatory response. No microorganisms. Reviewed by Dr. Crum 50 SEE RESULT BELOW Name: MARCELLO SAENZ : [address]: Jem Peña MD Acct: [id number] Unit: [id number] AGE: 55 Location: ED Re11/03/15 SEX: M Status: DEP ER SPEC: [id number] GABINO: 11/03/15 [facility] DR: Jem Peña MD REQ: [id number] RECD: 11/03/15 STATUS: ADIEL STAUFFER DR: Chino [...] performed at Main Lab DEPARTMENT OF PATHOLOGY, [address] [place] [address] Wilberto Crum M.D. Director [facility] # [id number] 51 Because ethnic data is not always [...] 5 Kidney failure <15 (or dialysis) 52 Because ethnic data is not always readily [...] 15-29 5 Kidney failure <15 (or dialysis) 53 Acute inflammation: >10.00 54 Because ethnic data is not always [...] to report test result due to hemolysis. 57 Acute inflammation: >10.00 58 Unable to report test result due to hemolysis. Procedures Date CPT Code Description Status Comment 10/19/2017 Diabetic Retinal Eye Exam Completed no retinopathy (Dr Clement ) 10/09/2017 Diabetic Foot Exam Completed normal DP and TP pulses, no sores or ulcers, normal monofilament and vibration sense 05/03/2017 66351 Electrocardiogram Complete Completed 06/29/2016 Colonoscopy Completed 2016: 1 small polyp (TA); fu 5yrs Encounters Type Date Location Provider CPT E/M Dx Office Visit 04/09/2018 9:45a Main Office Chino Kelly M.D. 10246 F11.20 E11.9 Z23 M25.50 M54.2 Office Visit 03/14/2018 10:15a Main Office Chino Kelly M.D. 04008 F11.20 E11.9 K08.9 Office Visit 02/07/2018 10:15a Main Office Chino Kelly M.D. 18923 F11.20 E11.9 Office Visit 01/07/2018 2:00p Main Office Chino Kelly M.D. 52774 F11.20 M54.2 E11.9 Office Visit 12/06/2017 11:45a Main Office Chino Kelly M.D. 32325 F11.20 E11.9 S06.0x1D Office Visit 2017 2:30p Main Office Chino Kelly M.D. 19117 F11.20 M54.2 E11.9 Z71.89 Office Visit 10/09/2017 9:45a Main Office Chino Kelly M.D. 26908 E11.9 F11.20 R11.0 Office Visit 09/08/2017 10:30a Main Office Chino Kelly M.D. 16382 E11.9 F11.20 M54.2 Office Visit 08/10/2017 9:45a Main Office Chino Kelly M.D. 65253 F11.20 R11.0 Z41.8 Z23 Office Visit 07/07/2017 11:30a Main Office Chino Kelly M.D. 14229 F11.20 E11.9 Office Visit 06/04/2017 10:15a Main Office Chino Kelly M.D. 33299 E11.9 F11.20 L91.8 Office Visit 05/03/2017 11:00a Main Office Chino Kelly M.D. 14364 F11.20 L72.3 E11.9 Office Visit 03/30/2017 10:00a Main Office Chino Kelly M.D. 86340 F11.20 M54.2 E11.9 Office Visit 02/26/2017 10:15a Main Office Chino Kelly M.D. 68158 E11.9 F11.20 Office Visit 01/29/2017 10:15a Main Office Chino Kelly M.D. 64478 N48.1 A69.20 F11.20 Office Visit 01/21/2017 9:45a Main Office Cristian Romero D.O. 54261 A07.0 Office Visit 01/18/2017 9:45a Main Office Cristian Romero D.O. 12842 R35.0 R25.2 M54.2 G43.119 R53.83 Office Visit 01/05/2017 9:30a Main Office Chino Kelly M.D. 77762 F11.20 Z71.51 J31.0 R25.2 H10.213 Office Visit 12/04/2016 9:30a Main Office Chino Kelly M.D. 81845 E11.9 F11.20 R11.0 G43.009 Z71.51 Office Visit 2016 9:30a Main Office Chino Kelly M.D. 86435 F11.20 R11.0 E11.9 G47.33 G47.00 Office Visit 10/09/2016 9:30a Main Office Chino Kelly M.D. 81163 B37.42 F11.20 K21.9 R11.0 G43.009 E11.65 Office Visit 09/08/2016 3:45p Main Office Cristian Romero D.O. 34989 E11.65 F11.20 K21.9 R11.0 G43.009 Office Visit 08/05/2016 2:30p Main Office Chino Kelly M.D. 57318 F11.20 E11.65 K21.9 R11.0 G43.009 Z71.89 Z23 Office Visit 07/08/2016 1:30p Main Office Chino Kelly M.D. 93252 F11.20 G47.33 S92.355D K76.0 E66.9 K21.9 R11.0 E11.65 G43.009 Office Visit 06/03/2016 4:15p Main Office Chino Kelly M.D. 52420 E11.65 E66.9 F11.20 G47.33 S92.355D Office Visit 05/06/2016 11:15a Main Office Chino Kelly M.D. 29260 E11.65 R10.11 K76.0 E66.9 F11.20 M79.1 G47.33 Z68.32 Office Visit 04/01/2016 11:00a Main Office Chino Kelly M.D. 79698 Z23 F11.20 R10.11 K76.0 E11.65 E66.9 Z13.220 R53.83 M79.1 K21.9 Z23 Office Visit 03/02/2016 11:15a Main Office Chino Kelly M.D. 57029 F11.20 K76.0 R10.11 E66.9 E11.65 B35.1 R73.9 Office Visit 02/03/2016 11:30a Main Office Chino Kelly M.D. 86275 F11.20 R35.0 B35.1 M54.2 M25.50 Office Visit 01/20/2016 11:00a Main Office Chino Kelly M.D. 40538 F11.20 B35.1 M25.50 G43.009 Z51.81 Office Visit 12/30/2015 11:30a Main Office Chino Kelly M.D. 30993 F11.20 M54.2 M54.5 F41.9 R74.0 Office Visit 11/27/2015 12:55p Main Office Chino Kelly M.D. 74882 F11.20 M54.5 F41.9 R74.0 E80.7 G93.0 M54.2 Plan of Care Future Appointment(s):05/09/2018 9:30 am - Chino Kelly M.D. at Main [facility]7904/09/2018 - Chino Kelly M.D.F11.20 Opioid dependence, uncomplicatedNew Orders:Urine Drug Screen InhouseFollow up:RTO 1mo recheck Suboxone w/ EKG, A1c, Shingrix. Get fasting bloodwork soon.E11.9 Type 2 diabetes mellitus without complicationsComments:Encouraged once again to get FBTs to recheck lipids soonZ23 Encounter for immunizationComments:Counseled re Shingrix. He elected to defer it until next visit as he has a wedding to attend this weekend and doesn't want to risk feeling unwell for it.M25.50 Pain in unspecified jointNew Medication:Ibuprofen 800 mgM54.2 CervicalgiaNew Medication: Ibuprofen 800 mg
[2018-04-29] MEDS ORDERED: Ondansetron INJ* 2 MG/ML VIAL IV ONE (12:56)
[2018-04-29] MEDS ORDERED: NS 0.9% 1000 ML* 1,000 ML IV SCH (13:00)
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
[2018-04-29 13:14] VITALS: BP 108/67
== END 2018-04-29 13:25 | disposition short-term general hospital (02) ==
LOC: UCEAST 12:45
DX: E86.0 Dehydration (principal); R51 Headache; E78.5 Hyperlipidemia, unspecified; Z88.1 Allergy status to other antibiotic agents; Z91.030 Bee allergy status; Z82.49 Family history of ischemic heart disease and other diseases of the circulatory system; Z87.891 Personal history of nicotine dependence
CPT/HCPCS: 93005; 96361; 96374; 99213; G0463; J2405

== ENCOUNTER 2018-04-29 13:44 | Emergency (ER) | payer OTHER ==
[2018-04-29] MEDS ORDERED: NS 0.9% 1000 ML* 1,000 ML IV ONE ×2 (13:48→15:38)
--- NOTE | 2018-04-29 15:10 | RAD ---
Indication: Headache. CT of the brain was performed without IV contrast. Comparison is made with previous exam dated November 23, 2017. Ventricular structures are midline. No midline shift is noted. The extraction spaces are unremarkable. There is no evidence of intracranial mass or hemorrhage. No other high or low density lesions are identified. Mastoid air cells and paranasal sinuses are otherwise unremarkable. Patient is status post left craniotomy. IMPRESSION: No intracranial mass or hemorrhage is noted. Postoperative changes of the left calvarium.
[2018-04-29 17:57] VITALS: BP 133/71
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
== END 2018-04-29 18:02 | disposition home or self-care (01) ==
LOC: ED 13:44
DX: R51 Headache (principal); M54.2 Cervicalgia; R11.0 Nausea; T67.5XXA Heat exhaustion, unspecified, initial encounter; X30.XXXA Exposure to excessive natural heat, initial encounter; Y93.H2 Activity, gardening and landscaping; Y92.008 Other place in unspecified non-institutional (private) residence as the place of occurrence of the external cause; R73.03 Prediabetes; I51.9 Heart disease, unspecified; I20.9 Angina pectoris, unspecified; G47.30 Sleep apnea, unspecified; K21.9 Gastro-esophageal reflux disease without esophagitis; F32.9 Major depressive disorder, single episode, unspecified; Z90.89 Acquired absence of other organs; Z88.1 Allergy status to other antibiotic agents; Z91.030 Bee allergy status; Z87.891 Personal history of nicotine dependence; Z82.49 Family history of ischemic heart disease and other diseases of the circulatory system
CPT/HCPCS: 70450; 93005; 96360; 99283

== ENCOUNTER 2018-05-28 16:58 | Emergency (ER) | payer OTHER ==
[2018-05-28] MEDS ORDERED: NS 0.9% 1000 ML* 2,000 ML IV ONE ×2 (17:33→18:38)
[2018-05-28] MEDS ORDERED: Ondansetron ODT TAB* 4 MG PO ONE (17:33)
[2018-05-28] MEDS ORDERED: Ketorolac INJ* 30 MG/ML 1 ML VIAL IV ONE (17:33)
--- OUTSIDE RECORDS SUMMARY | 2018-05-28 17:38 | XMS REPORT ---
:1960 External Reference #:[id number] Author Organization [facility] Address [address] [place] [address] Phone [phone] Care Team Providers Name Role Phone HCP given Primary Care Physician Unavailable Payers Type Date Identification Payment Subscriber Numbers Provider Health Maintenance Effective: Policy Number: Rodolfo/Sarabjit Chandra Organization (O) 04/29/2014 [id number] e (FERCHO MGD) Ynes PayID: [id number] [address] [address] [place] [address] Problems Date Description Provider Status Onset: 01/20/2016 [...] Heroin Exercise Type/Frequency Exercises rarely Age 1st Chelyan 19 Years Old Allergies, Adverse Reactions, Alerts Date Description Reaction Status Severity Comments 01/20/2016 Codeine active Rx was long time ago 01/29/2017 Doxycycline active recurrent severe balanitis 12/30/2015 NKDA inactive Medications Medication Date Status Form Strength Qnty SIG Indications Ordering Provider Sumatriptan Active Tablets 50mg 6tabs 1 by G43.009 Silcoff, Succinate 018 mouth at [place], onset of M.D. migraine; may repeat once after 2 hours if needed; max 3x/wk Ibuprofen Active Tablets 800mg 90tabs 1 cap by M25.50 Silcoff, 018 mouth [place], three M.D. times a day as needed for pain M54.2 CBD Oil Pills 04/08/2018 Active prn use Unknown From [facility] Rosuvastatin 2017 Active Tablets 5mg 30ta take one tablet E11. Leticia Calcium bs by mouth every 9 [place], day to lower M.D. choloesterol and reduce risk of heart disease Multivitamin 05/02/2017 Active Tablets 1 by mouth every Unknown Adult day B Complex 02/25/2017 Active Tablets 1 by mouth once Unknown daily prn for muscle cramps Freestyle Lite 05/06/2016 Active Strips 100u use as directed E11. Leticia Test nits for measuring 65 [place], blood sugar M.D. 1-2x/day and as needed Freestyle 05/06/2016 Active Misc 100u use as directed E11Clayton Kelly Lancets nits once a day for 65 [place], blood sugar M.D. monitoring Omeprazole 04/01/[address] 20mg 30ca take one capsule K21. Leticia ps by mouth up to 9 [place], once a day, as M.D. needed for acid reflux Suboxone 12/19/2015 Active Film 8-2m 45un 3/4 film 2x/day; F11. Leticia g its for chronic pain 20 [place], and opiate M.D. dependence; suboxone prescriber# [id number]; rx due 05/13/18 M54.2 Chlorhexidine 03/13/ Hx Solution 0.12% Rinse with 1/2 Unknown Gluconate 2018 - ounce by mouth 05/11/ for 30 seconds 2017 then spit out. use twice Amoxicillin 03/13/ Hx Capsules 500mg take 1 capsule Unknown 2018 - by mouth three 04/08/ times a day 2018 Ketorolac 02/19/ Hx Tablets 10mg 15tab take 1 tablet by Brian Kelly 2018 - s mouth every 6 Rosi Magana 03/19/ hours if needed 2018 for pain; take for no more than 5 days Naproxen 11/03/ Hx Tablets 500mg 60tab take one tablet M54Clayton2 Leticia 2017 - s by mouth twice a Rosi Magana 04/09/ day as needed 2018 for neck pain, take with food PT For Neck Pain 09/08/ Hx please evaluate Emmy Kelly 2016 - and treatChino M.D. 10/08/ instruct in hep, 2017 modalities prn. Naproxen Sodium 05/02/ Hx Tablets 220mg as directed as Unknown 2016 - needed 2016 Nystatin 02/02/ Hx Cream 538404 30uni apply to Leticia 2016 - Unit/G ts affected area(s) Rosi Magana 02/25/ M on penis three 2017 times a day as needed Nystatin-Triamcinolon 01/29/ Hx Cream 178644 30gm apply to N48.1 cheikh Kelly 2016 - -0.1Un affected areas Rosi Magnaa 02/25/ it/GM- on penis 3 times 2017 % a day as needed until clear Lidocaine 01/26/ Hx Ointment 5% 35.44 apply to the A07.0 Nick, 2016 - 0gm affected area Cristian DClaytonOClayton 01/29/ three times a 2016 day for pain Fluconazole 01/21/ Hx Tablets 150mg 1tabs 1 by mouth once A07.0 Nick , 2016 - Cristian, D.O. 2016 Lidocaine HCL 01/21/ Hx Gel 2% 30ml apply to head of A07.0 Nick, 2016 - penis 4 times a Cristian, D.O. 01/26/ day as needed 2016 for pain Clindamycin Phosphate 01/21/ Hx Lotion 1% 180ml apply 1 A07.0 Nick2016 - application Cristian D.O. 01/26/ topically to 2017 affected area 2 times per day Doxycycline Hyclate 01/20/ Hx Tablets DR 100mg 56tab take 1 tablet by A69.2 Nick, 2017 - s mouth 2 times 0 Cristian, D.O. 01/30/ per day for 28 2016 days for lyme disease Cyclobenzaprine HCL 01/18/ Hx Tablets 10mg 30tab 1 by mouth three M54.2 Nick, 2016 - s times a day as Cristian, D.O. 01/28/ needed as needed 2016 for muscle spasms. Fluticasone 01/05/ Hx Suspension 50mcg/ 16uni 2 sprays into J31.0 Silcoff, Propionate 2017 - Act ts each nostril Rosi Magana 01/28/ once daily for 2016 nasal congestion; stop using all other nasal sprays within 1 week of starting this Simvastatin 11/03/ Hx Tablets 20mg 30tab take one tablet E11.6 Leticia, 2015 - s by mouth every 5 Rosi Magana 01/18/ day to lower 2017 cholesterol E11.9 Nystatin 10/09/2016 - Hx Cream 054814Caoq/GM 30units apply to B37.42 Silcoff, 10/19/2016 affected [place] area(s) on M.D. penis three times a day as needed Ibuprofen 09/08/2016 - Hx Tablets 800mg 90tabs 1 cap by M25.50 Nick, 11/02/2017 mouth three Cristian, D.O. times a [...] Silcoff , 02/06/2018 Dispers every 4 hours [place] as needed for M.D. nausea/vomitin g R11.2 [...] up M25.50 Silcoff, 01/20/2016 to every 8 [place], M.DClayton hours for pain M25.50 Sumatriptan 11/04/2015 [...] CPT Code Status Date Vaccine Lot # [id number] Given 08/10/2017 Influenza Virus Vaccine, Quadrivalent, Split, [id number] Preservative Free 20836 Given 05/26/2017 Adacel or Boostrix, TDaP [id number] Given 08/05/2016 Influenza Virus Vaccine, Quadrivalent, Split, [id number] Preservative Free 00147 Given 04/01/2016 Adacel or Boostrix, TDaP [id number] Vital Signs Date Vital Result Comment 05/09/2018 BP Systolic 112 mmHg BP Diastolic 78 mmHg Height 72 inches 6'0" with sandals Weight 243.00 lb with sandals BMI (Body Mass Index) 33.0 kg/m2 04/09/2018 BP Systolic 122 mmHg BP Diastolic [...] Result H/L Range Note Laboratory test finding 05/09/2018 Hemoglobin A1c 6.9 Urine Drug Screen Inhouse 04/09/2018 Ua Cocaine - Ua Opiates - Ua Amphetamines - Urine Methanphetamines - Urine Benzodiazepines QN [place] + Urine Oxycodone QL - Laboratory test finding 02/18/2018 Troponin-I (TnI) 0.00 [...] Egfr 111.2 >60 2 Laboratory test finding 02/18/2018 Troponin-I (TnI) 0.00 ng/mL <0.04 Laboratory test finding 01/07/2018 Hemoglobin A1c 6.2 [...] - Urine Methanphetamines - Urine Benzodiazepines QN [place] - Urine Oxycodone QL - Laboratory test [...] 9 Ua Ketones - 9 Ua Specific [place] 1.005 9 Ua Blood - 9 Ua [...] 01/18/2017 Folic Acid (Folate) > 20.00 ng/mL > 3.99 C Reactive Protein 1.06 mg/L < 5.00 [...] 10/19/2016 Lyme Disease Serology Negative Negative 27 Basic Metabolic Panel 10/05/2016 Sodium 134 mmol/L 133-145 Potassium 3.7 mmol/L 3.5-5.0 Chloride 101 mmol/L 101-111 Co2 Carbon Dioxide 27 mmol/L 22-32 Anion Gap 6 mmol/L 2-11 Glucose 164 mg/dL High 70-100 Blood Urea Nitrogen 19 mg/dL 6-24 Creatinine 0.95 mg/dL 0.67-1.17 BUN/Creatinine Ratio 20.0 8-20 Calcium 9.5 mg/dL 8.6-10.3 Egfr Non- 82.9 >60 Egfr 106.7 >60 28 CBC Auto Diff 10/05/2016 White Blood Count [...] Blood Cells % 0.2 Laboratory test finding 09/08/2016 Hemoglobin A1c 6.3 Urine Drug Screen Inhouse 09/08/2016 Ua Cocaine - Ua Opiates - Ua Amphetamines - Urine Methanphetamines - Urine Benzodiazepines QN [place] - Urine Oxycodone QL - Laboratory test finding 07/09/2016 Surgical Pathology SEE RESULT BELOW 29, 30 Laboratory test finding 07/09/2016 Clotest SEE RESULT BELOW 31, 32 Laboratory test finding 06/03/2016 Hemoglobin A1c 6.4 Laboratory test finding 05/06/2016 Glucose Quantitative 196 33 Lipid Profile 04/08/2016 Triglycerides 252 mg/dL 34 (Trig/Chol/HDL) Cholesterol 156 mg/dL 35 HDL Cholesterol 29.6 mg/dL 36 LDL Cholesterol 76 mg/dL 37 Urine Microalbumin Random 04/08/2016 Ur Microalbumin (mg/L) < 5.0 mg/L Urine Creatinine 240.05 mg/dL Urine Microalbumin/Creatinine TNP ug/mg <31 38 Laboratory test finding 04/08/2016 TSH (Thyroid Stim Horm) 1.90 ?IU/mL 0.34-5.60 39 Creatine Kinase(CK) 191 U/L 10-223 40 Laboratory test finding 03/04/2016 Point of Care Glucose 127 mg/dL High 74 -106 41 Laboratory test finding 03/02/2016 Hemoglobin A1c 6.6 Urine Drug Screen Inhouse 03/02/2016 Ua Cocaine - Ua Opiates - Ua Amphetamines - Urine Methanphetamines - Urine Benzodiazepines QN [place] - Urine Oxycodone QL - CBC Auto [...] 44 Ua Ketones - 44 Ua Specific [place] 1.010 44 Ua Blood - 44 Ua [...] - Urine Methanphetamines - Urine Benzodiazepines QN [place] - Urine Oxycodone QL - Urine Drug Screen Inhouse 01/20/2016 Ua Cocaine - Ua Opiates - Ua Amphetamines - Urine Methanphetamines - Urine Benzodiazepines QN [place] - Urine Oxycodone QL - Laboratory test [...] Culture & Gram Stain SEE RESULT BELOW 48 CSF Cell Count 2015 Body Fluid Appearance Clear Body Fluid Color Colorless CSF Tube # 4 Body Fluid Volume 1.5 mL Body Fluid WBC 1 Body Fluid RBC 0 Body Fluid Lymph 9 Body Fluid [place] 5 Body Fluid Total Cells Counted 14 Body Fluid Comment (SEE NOTE) 49 Fluid Reviewed By MD (SEE NOTE) 50 CBC Auto Diff 2015 White Blood [...] Blood Cells % 0 Laboratory test finding 11/02/2015 C Reactive Protein < 1.00 mg/L < 5.00 52 Comp Metabolic Panel 11/02/2015 Sodium 137 mmol/L [...] Egfr Non- 100.1 >60 Egfr 128.7 >60 53 Laboratory test finding 10/26/2015 Lipase 55 U/L 11.0-82.0 C Reactive Protein < 1.00 mg/L < 5.00 54 Magnesium TNP mg/dL 1.9-2.7 55 Comp Metabolic Panel 10/26/2015 Sodium 133 mmol/L [...] Egfr Non- 87.5 >60 Egfr 112.5 >60 56 Potassium TNP mmol/L 3.5-5.0 57 Anion Gap TNP mmol/L 2-11 Ast TNP U/L 13-39 58 CBC Auto Diff 10/26/2015 White Blood Count [...] Nucleated Red Blood Cells % 0 1 [place] Severe Sepsis and Septic Shock Management Bundle [...] screening test (e.g., EIA). Test Performed by: [facility] [place] [address] Printing Press Machinist: Ghassan Chavez II, M.D., Ph.D. 13 Acute inflammation: >10.00 14 ADDITIONAL INFORMATION This test was developed and its performance characteristics determined by [facility] in a manner consistent with CLIA requirements. This test has not been cleared or approved by the U.S. Food and Drug Administration. 15 ADDITIONAL INFORMATION This test was developed and its performance characteristics determined by [facility] in a manner consistent with CLIA requirements. This test has not been cleared or approved by the U.S. Food and Drug Administration. 16 ADDITIONAL INFORMATION This test was developed and its performance characteristics determined by [facility] in a manner consistent with CLIA requirements. This test has not been cleared or approved by the U.S. Food and Drug Administration. Test Performed by: [facility] - [address] [address] Printing Press Machinist: Ghassan Chavez II, M.D., Ph.D. 17 Community Education Coordinator: [id number] Holly Im 18 Community Education Coordinator: [id number] Holly Im 19 [id number] 20 SEE RESULT BELOW Name: MARCELLO SAENZ : [address]: Shira Apodaca MD Acct: [id number] Unit: [id number] AGE: 56 Location: [facility] Re01/15/17 SEX: M Status: DEP ER SPEC: [id number] GABINO: 01/15/17-1710 [facility] DR: Shira Apodaca MD REQ: [id number] RECD: 01/16/17-1221 STATUS: ADIEL STAUFFER DR: [place] Kelly MD _ SOURCE: URINE SPDESC: ORDERED: Urine Culture COMMENTS: [id number] Procedure Result Reported Site Urine Culture Final 01/17/17- 1346 ML No Growth (<1,000 CFU/mL) * ML - MAIN LAB ([facility]) . END OF REPORT * ML=Testing performed at Main Lab DEPARTMENT OF PATHOLOGY, [address] [place] [address] Wilberto Crum M.D. Director [facility] # [id number] 21 Community Education Coordinator: [id number] ANALILIA HOUSTON 22 Community Education Coordinator: [id number] Rene 23 Community Education Coordinator: INGRID Rene 24 SEE RESULT BELOW Name: MARCELLO SAENZ : [address]: Darell Carroll MD Acct: [id number] Unit: [id number] AGE: 56 Location: ED Re11/21/16 SEX: M Status: REG ER SPEC: [id number] GABINO: 11/21/[address]: Darell Carroll MD REQ: [id number] RECD: 11/21/16 STATUS: COMP OTHR DR: Chino Kelly MD _ SOURCE: NASAL SPDESC: ORDERED: Flu A B Request Procedure Result Reported Site Rapid Influenza A B Request Final 11/21/16- 0230 ML Specimen received for Influenza A/B Molecular testing * ML - MAIN LAB ([facility]) . END OF REPORT * ML=Testing performed at Main Lab DEPARTMENT OF PATHOLOGY, [address] [place] [address] Wilberto Crum M.D. Director [facility] # [id number] 25 SEE RESULT BELOW Name: MARCELLO SAENZ : [address]: Darell Carroll MD Acct: [id number] Unit: [id number] AGE: 56 Location: ED Re11/21/16 SEX: M Status: REG ER SPEC: [id number] GABINO: 11/21/[address]: Darell Carroll MD REQ: [id number] RECD: 11/21/16 STATUS: COMP OTHR DR: [place] Kelly MD _ SOURCE: THROAT SPDESC: ORDERED: Strep A Request Procedure Result Reported Site Rapid Strep A Request Final 11/21/16- 229 ML Specimen received for Rapid Strep A Molecular testing * ML - MAIN LAB ([facility]) . END OF REPORT * ML=Testing performed at Main Lab DEPARTMENT OF PATHOLOGY, [address] [place] [address] Wilberto Crum M.D. Director [facility] # [id number] 26 Because ethnic data is not always [...] submitted in 7-14 days. Test Performed by: [place] [address] Printing Press Machinist: Ghassan Chavez II, M.D., Ph.D. 28 Because [...] 5 Kidney failure <15 (or dialysis) 29 [id number] 30 SEE RESULT BELOW Name: MARCELLO SAENZ Corazon : [address]: Kahlil Sauceda MD Acct: [id number] Unit: [id number] AGE: 55 Location: [facility] Re07/09/16 SEX: M Status: DEP REF SPEC: [id number] GABINO: 07/09/16-1303 [facility] [address]: Kahlil Sauceda MD REQ: [id number] RECD: 07/09/16-2923 STATUS: CRYSTAL STAUFFER DR: Cihno Kelly MD _ ORDERED: LEVEL IV COMMENTS: [id number] FINAL DIAGNOSIS Colon, descending, biopsy: -- Tubular [...] performed at Main Lab DEPARTMENT OF PATHOLOGY, [address] [place] [address] Wilberto Crum M.D. Director [facility] # [id number] 31 [id number] 32 SEE RESULT BELOW Name: MARCELLO SAENZ Corazon : [address]: Kahlil Sauceda MD Acct: [id number] Unit: [id number] AGE: 55 Location: [facility] Re07/09/16 SEX: M Status: REG REF SPEC: [id number] GABINO: 07/09/16-1240 [facility] [address]: Kahlil Sauceda MD REQ: [id number] RECD: 07/09/16 STATUS: COMP [facility] DR: Chino Kelly MD _ SOURCE: [facility]: ORDERED: Clotest COMMENTS: [id number] Procedure Result Reported Site Clotest Final 07/10/16- 0752 ML Clotest Negative * ML - MAIN LAB ([facility]) . END OF REPORT * ML=Testing performed at Main Lab DEPARTMENT OF PATHOLOGY, [address] [place] [address] Wilberto Crum M.D. Director [facility] # [id number] 33 Dr. Kelly aware 34 Desirable <150 Borderline high 150-199 High 200-499 Very High >500 35 Desirable <200 Borderline high 200-239 High >239 36 Low <40 Desirable: 40-60 High: >60 37 Desirable: <100 mg/dL Near Optimal: 100-129 mg/dL Borderline High: 130-159 mg/dL High: 160-189 mg/dL Very High: >189 mg/dL 38 Unable to calculate due to low microalbumin 39 FASTING 12 HOUR 40 FASTING 12 HOUR 41 Community Education Coordinator: [id number] ALAINA BRAUN 42 Because ethnic data is [...] void, clear, yellow 45 Test Performed by: [place] [address] Printing Press Machinist: Ghassan Chavez II, M.D., Ph.D. 46 REFERENCE VALUE 15.0 - 30.0 Test Performed by: [place] [address] Printing Press Machinist: Ghassan Chavez II, M.D., Ph.D. 47 Negative in normal individuals. May be negative in dermatitis herpatiformis or celiac disease patients adhering to a gluten free diet. ADDITIONAL INFORMATION Laboratory developed test. Test Performed by: [place] [address] Printing Press Machinist: Ghassan Chavez II, M.D., Ph.D. 48 SEE RESULT BELOW Name: MARCELLO SAENZ : [address]: Jem Peña MD Acct: [id number] Unit: [id number] AGE: 55 Location: ED Re11/03/15 SEX: M Status: DEP ER SPEC: [id number] GABINO: 11/03/15 [facility] [address]: Jem Peña MD REQ: [id number] RECD: 11/03/15 STATUS: ADIEL STAUFFER DR: Chino Kelly MD _ SOURCE: CSF SPDESC: ORDERED: CSF Cult/GS Procedure Result Reported Site CSF Gram Stain Final 11/04/15- 0742 ML 1+ Epithelial Cells No Polys Observed No Organisms Seen Preparation By Cytospin Smear CSF Culture Final 11/07/15- 0849 ML No Growth Day 4 * ML - MAIN LAB ([facility]) . END OF REPORT * ML=Testing performed at Main Lab DEPARTMENT OF PATHOLOGY, [address] [place] [address] Wilberto Crum M.D. Director [facility] # [id number] 49 Differential performed on concentrated smear. 50 No evidence of malignancy or acute inflammatory response. No microorganisms. Reviewed by Dr. Crum 51 Because ethnic data is not always [...] (or dialysis) 52 Acute inflammation: >10.00 53 Because ethnic data is not always readily [...] 15-29 5 Kidney failure <15 (or dialysis) 54 Acute inflammation: >10.00 55 Unable to report test result due to hemolysis. 56 Because ethnic data is not always readily [...] 15-29 5 Kidney failure <15 (or dialysis) 57 Unable to report test result due to hemolysis. 58 Unable to report test result due to hemolysis. Procedures Date CPT Code Description Status Comment 10/19/2017 Diabetic Retinal Eye Exam Completed no retinopathy (Dr Clement ) 10/09/2017 Diabetic Foot Exam Completed normal DP and TP pulses, no sores or ulcers, normal monofilament and vibration sense 05/03/2017 07045 Electrocardiogram Complete Completed 06/29/2016 Colonoscopy Completed 2016: 1 small polyp (TA); fu 5yrs Encounters Type Date Location Provider CPT E/M Dx Office Visit 04/09/2018 9:45a Main Office Ch[place] Kelly M.D. 99908 F11.20 E11.9 Z23 M25.50 M54.2 Z79.899 Office Visit 03/14/2018 10:15a Main Office Chino Kelly M.D. 00621 F11.20 E11.9 K08.9 Office Visit 02/07/2018 10:15a Main Office Chino Kelly M.D. 43089 F11.20 E11.9 Office Visit 01/07/2018 2:00p Main Office Chino Kelly M.D. 67272 F11.20 M54.2 E11.9 Office Visit 12/06/2017 11:45a Main Office Chino Kelly M.D. 80510 F11.20 E11.9 S06.0x1D Office Visit 2017 2:30p Main Office Chino Kelly M.D. 50995 F11.20 M54.2 E11.9 Z71.89 Office Visit 10/09/2017 9:45a Main Office Chino Kelly M.D. 57179 E11.9 F11.20 R11.0 Office Visit 09/08/2017 10:30a Main Office Chino Kelly M.D. 31137 E11.9 F11.20 M54.2 Office Visit 08/10/2017 9:45a Main Office Chino Kelly M.D. 90630 F11.20 R11.0 Z41.8 Z23 Office Visit 07/07/2017 11:30a Main Office Chion Kelly M.D. 73052 F11.20 E11.9 Office Visit 06/04/2017 10:15a Main Office Chino Kelly M.D. 45026 E11.9 F11.20 L91.8 Office Visit 05/03/2017 11:00a Main Office Chino Kelly M.D. 38536 F11.20 L72.3 E11.9 Office Visit 03/30/2017 10:00a Main Office Chino Kelly M.D. 53904 F11.20 M54.2 E11.9 Office Visit 02/26/2017 10:15a Main Office Chino Kelly M.D. 19651 E11.9 F11.20 Office Visit 01/29/2017 10:15a Main Office Chino Kelly M.D. 10067 N48.1 A69.20 F11.20 Office Visit 01/21/2017 9:45a Main Office Cristian Romero D.O. 05814 A07.0 Office Visit 01/18/2017 9:45a Main Office Cristian Romero D.O. 70189 R35.0 R25.2 M54.2 G43.119 R53.83 Office Visit 01/05/2017 9:30a Main Office Chino Kelly M.D. 46269 F11.20 Z71.51 J31.0 R25.2 H10.213 Office Visit 12/04/2016 9:30a Main Office Chino Kelly M.D. 38644 E11.9 F11.20 R11.0 G43.009 Z71.51 Office Visit 2016 9:30a Main Office Chino Kelly M.D. 64247 F11.20 R11.0 E11.9 G47.33 G47.00 Office Visit 10/09/2016 9:30a Main Office Chino Kelly M.D. 14463 B37.42 F11.20 K21.9 R11.0 G43.009 E11.65 Office Visit 09/08/2016 3:45p Main Office Cristian Romero D.O. 37032 E11.65 F11.20 K21.9 R11.0 G43.009 Office Visit 08/05/2016 2:30p Main Office Chino Kelly M.D. 30246 F11.20 E11.65 K21.9 R11.0 G43.009 Z71.89 Z23 Office Visit 07/08/2016 1:30p Main Office Chino Kelly M.D. 80869 F11.20 G47.33 S92.355D K76.0 E66.9 K21.9 R11.0 E11.65 G43.009 Office Visit 06/03/2016 4:15p Main Office Chino Kelly M.D. 38497 E11.65 E66.9 F11.20 G47.33 S92.355D Office Visit 05/06/2016 11:15a Main Office Chino Kelly M.D. 32080 E11.65 R10.11 K76.0 E66.9 F11.20 M79.1 G47.33 Z68.32 Office Visit 04/01/2016 11:00a Main Office Chino Kelly M.D. 81158 Z23 F11.20 R10.11 K76.0 E11.65 E66.9 Z13.220 R53.83 M79.1 K21.9 Z23 Office Visit 03/02/2016 11:15a Main Office Chino Kelly M.D. 85860 F11.20 K76.0 R10.11 E66.9 E11.65 B35.1 R73.9 Office Visit 02/03/2016 11:30a Main Office Chino Kelly M.D. 72066 F11.20 R35.0 B35.1 M54.2 M25.50 Office Visit 01/20/2016 11:00a Main Office Chino Kelly M.D. 51435 F11.20 B35.1 M25.50 G43.009 Z51.81 Office Visit 12/30/2015 11:30a Main Office Chino Kelly M.D. 23168 F11.20 M54.2 M54.5 F41.9 R74.0 Office Visit 11/27/2015 12:55p Main Office Chino Kelly M.D. 71280 F11.20 M54.5 F41.9 R74.0 E80.7 G93.0 M54.2 Plan of Care 05/09/2018 - Chino Kelly M.D.E11.9 Type 2 diabetes mellitus without complicationsComments:A1c is up, now 6.9%. Encouraged dec caloric intake, wt loss.F11.20 Opioid dependence, uncomplicatedNew Orders:EKG W/ ReadingFollow up: RTO 1mo recheck Suboxone. Put on Shingrix wait list. Get fasting bloodwork today.G43.009 Migraine w/o aura, not intractable, w/o status migrainosusNew Medication:Sumatriptan Succinate 50 mg
[2018-05-28 17:57] LABS: ABS Basophils 0 10^3/ul (0-0.2); ABS Eosinophils 0.1 10^3/ul (0-0.6); ABS Lymphocytes 0.7 10^3/ul (1.0-4.8); ABS Monocytes 0.5 10^3/ul (0-0.8); ABS Neutrophils 6.1 10^3/ul (1.5-7.7); ABS Nucleated RBC 0 10^3/ul; Eosinophil % 0.8 % (0-6); Hematocrit 43 % (42-52); Hemoglobin 14.6 g/dl (14.0-18.0); Lymphocyte % 10.2 % (25-47); Mean Corpuscular HGB Conc 34 g/dl (31-36); Mean Corpuscular Hemoglobin 30 pg (27-31); Mean Corpuscular Volume 89 fL (80-94); Mean Platelet Volume 8.3 um3 (7.4-10.4); Nucleated Red Blood Cells % 0; Platelet Count 128 10^3/ul (150-450); Red Cell Distribution Width 14 % (10.5-15); White Blood Count 7.4 10^3/ul (3.5-10.8)
[2018-05-28 18:05] LABS: INR 1.07 (0.77-1.02)
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
[2018-05-28] MEDS ORDERED: diPHENhydraMINE IV* 50 MG/ML 1 ml VIAL (BENADRYL) IV ONE (19:41)
[2018-05-28] MEDS ORDERED: Metoclopramide IV* 5 MG/ML 2 ML VIAL IV ONE (19:41)
[2018-05-28] MEDS ORDERED: Butalb/Acetamin/Caff TAB* 1 TAB PO ONE (21:42)
[2018-05-28 22:54] VITALS: BP 104/70
--- NOTE | 2018-05-29 01:16 | ED ---
Esthela Meade Rebecca, scribed for Julio Caraballo on 05/28/18 at 1943 . Progress - Progress Note Progress Note: Pt was signed out by Dr. Wilder, pending further workup. Re-Evaluation - Re-Evaluation First Eval Re-Evaluation Time: 19:42 Change: Unchanged Comment: Pt does not want a CT Second Eval Re-Evaluation Time: 21:40 Comment: Pt continues to c/o DYSON. Still does not want a CT. Third Eval Re-Evaluation Time: 22:38 Change: Improved Comment: Pt is feeling better. He has no abdominal pain and no indication for a CT Abd/Pel. He will be discharged. Course/Dx - Course Course Of Treatment: Pt was signed out by Dr. Wilder, pending further workup. He was given Fioricet, Benadryl, and Reglan which improved symptoms. He repeatedly refused a CT. He has no abdominal pain and no indication for a CT Abd /Pel. He will be D/C to home with Dx of headache, dehydration and diarrhea with Rx for Fioricet and a follow up with his PCP for a repeat lipase. - Diagnoses Provider Diagnoses: Dehydration, Diarrhea, Headache Discharge - Sign-Out/Discharge Documenting (check all that apply): Discharge/Admit/Transfer - Discharge, Receiving Sign-Out Receiving patient FROM: Ghassan Wilder - Discharge Plan Condition: Stable Disposition: HOME Prescriptions: Butalb/Acetamin/Caff TAB* [Fioricet TAB*] 1 tab PO Q6H PRN #15 tab MDD 3 PRN Reason: Pain Patient Education Materials: Acute Headache (ED) Referrals: Chino Kelly MD [Primary Care Provider] - 3 Days (Get your lipase level retested as an outpatient. ) Additional Instructions: RETURN TO ED FOR ANY NEW OR WORSENING SYMPTOMS. The documentation as recorded by the Esthela dong Rebecca accurately reflects the service I personally performed and the decisions made by , Julio Caraballo.
== END 2018-05-28 22:56 | disposition home or self-care (01) ==
LOC: ED 16:58
DX: E86.0 Dehydration (principal); R51 Headache; R19.7 Diarrhea, unspecified; G47.30 Sleep apnea, unspecified; K21.9 Gastro-esophageal reflux disease without esophagitis; M54.5 Low back pain; G89.29 Other chronic pain; Z87.891 Personal history of nicotine dependence
CPT/HCPCS: 36415; 80053; 83605; 83690; 85025; 85610; 85730; 86140; 96360; 96374; 99285; A9270-GY; J1200; J1885; J2765

== ENCOUNTER 2018-05-31 13:12 | Emergency (ER) | payer OTHER ==
[2018-05-31 13:31] VITALS: BP 111/62
[2018-05-31] MEDS ORDERED: Ibuprofen TAB* 600 MG PO ONE (13:39)
--- NOTE | 2018-05-31 13:43 | UC ---
Lower Extremity/Ankle HPI - HPI Summary HPI Summary: Patient is a 57-year-old male with injury to his left foot when he said he twisted it walking on a [place] today. He was able to limp out of [place] he has marked pain with weight bearing. He has a history of prior fracture to the base of the fifth metatarsal. - History of Current Complaint Chief Complaint: UCLowerExtremity Stated Complaint: FOOT INJURY Time Seen by Provider: 05/31/18 13:35 Hx Obtained From: Patient Onset/Duration: Sudden Onset, Lasting Hours Severity Initially: Moderate Severity Currently: Moderate Pain Intensity: 7 Pain Scale Used: 0-10 Numeric Aggravating Factor(s): Standing, Ambulation Alleviating Factor(s): Rest, Elevation Able to Bear Weight: Yes - Allergies/Home Medications Allergies/Adverse Reactions: Allergies Allergy/AdvReac Type Severity Reaction Status Date / Time bee venom protein (honey bee) Allergy Anaphylatic Verified 05/31/18 13:31 Shock doxycycline Allergy Vomiting Verified 05/31/18 13:31 PMH/Surg Hx/FS Hx/Imm Hx Previously Healthy: Yes Other History Of: Negative For: Anticoagulant Therapy - Surgical History Surgical History: Yes Surgery Procedure, Year, and Place: appendectomy. subdural hematoma with brain surgery 1980. CARDIAC CATH - Family History Known Family History: Positive: Cardiac Disease, Hypertension - Social History Alcohol Use: None Substance Use Type: Marijuana Substance Use Comment - Amount & Last Used: USES MARIJUANA TO HELP PREVENT SEIZURES "all day evry day" Smoking Status (MU): Former Smoker Type: Cigarettes Amount Used/How Often: pack/day Length of Time of Smoking/Using Tobacco: 21 years Have You Smoked in the Last Year: No When Did the Patient Quit Smoking/Using Tobacco: 20 years ago - Immunization History Most Recent Influenza Vaccination: 2016/2016 season Most Recent Tetanus Shot: UNSURE Most Recent Pneumonia Vaccination: NEVER Review of Systems Constitutional: Negative Skin: Bruising Eyes: Negative ENT: Negative Respiratory: Negative Cardiovascular: Negative Gastrointestinal: Negative Genitourinary: Negative Motor: Negative Neurovascular: Negative Musculoskeletal: Arthralgia Neurological: Negative Psychological: Negative Is Patient Immunocompromised?: No All Other Systems Reviewed And Are Negative: Yes Physical Exam Triage Information Reviewed: Yes Appearance: Well-Appearing, No Pain Distress, Well-Nourished Vital Signs: Initial Vital Signs Temp 98.6 F 05/31/18 13:25 Pulse 81 05/31/18 13:25 Resp 18 05/31/18 13:25 BP 111/62 05/31/18 13:25 Pulse Ox 97 05/31/18 13:25 Vital Signs Reviewed: Yes Eyes: Positive: Conjunctiva Clear ENT Exam: Normal Neck: Positive: Supple, Nontender, No Lymphadenopathy Respiratory: Positive: Lungs clear, Normal breath sounds, No respiratory distress, No accessory muscle use Cardiovascular: Positive: RRR, No Murmur Musculoskeletal: Positive: Other: - see image Neurological: Positive: Alert Psychological Exam: Normal Skin Exam: Normal Diagnostics - Radiology No standard instances Xray Interpretation: Positive (See Comments) - 1. OBLIQUE NONDISPLACED INTRA- ARTICULAR FRACTURE BASE OF THE FOURTH PROXIMAL PHALANX. 2. SLIGHTLY DISPLACED COMMINUTED INTRA-ARTICULAR FRACTURE OF THE THIRD PROXIMAL PHALANX Radiology Interpretation Completed By: Radiologist Lower Extremity Course/Dx - Differential Dx/Diagnosis Provider Diagnoses: fractures of left third and forth toes Discharge - Sign-Out/Discharge Documenting (check all that apply): Discharge/Admit/Transfer - Discharge Plan Condition: Stable Disposition: TRANSFERRED TO [facility] Patient Education Materials: Toe Fracture (ED) Referrals: Karley Bahena MD [Medical Doctor] - 6 Days Additional Instructions: rest elevate elevate CAM boot crutches until able to wt bear tylenol and or advil for pain - Billing Disposition and Condition Condition: STABLE [facility] (Multiple View): 1 - tender/swollen/ecchymotic
--- NOTE | 2018-05-31 14:19 | RAD ---
INDICATION: Left foot injury. TECHNIQUE: 3 views of the left foot were obtained. FINDINGS: There is diffuse soft tissue swelling. There is an oblique fracture at the base of the fourth proximal phalanx extending to the articular margin which appears nondisplaced. There is a comminuted slightly impacted fracture of the distal aspect of the third proximal phalanx. IMPRESSION: 1. OBLIQUE NONDISPLACED INTRA-ARTICULAR FRACTURE BASE OF THE FOURTH PROXIMAL PHALANX. 2. SLIGHTLY DISPLACED COMMINUTED INTRA-ARTICULAR FRACTURE OF THE THIRD PROXIMAL PHALANX.
== END 2018-05-31 14:34 | disposition home or self-care (01) ==
LOC: UCEAST 13:12
DX: S92.912A Unspecified fracture of left toe(s), initial encounter for closed fracture (principal); Z91.030 Bee allergy status; Z88.1 Allergy status to other antibiotic agents; Z87.891 Personal history of nicotine dependence; X50.1XXA Overexertion from prolonged static or awkward postures, initial encounter; Y93.01 Activity, walking, marching and hiking; Y92.9 Unspecified place or not applicable
CPT/HCPCS: 99213; A9270-GY; G0463

== ENCOUNTER 2018-08-02 18:31 | Emergency (ER) | payer OTHER ==
[2018-08-02] MEDS ORDERED: Ketorolac INJ* 30 MG/ML 1 ML VIAL IV PUSH ONE (18:55)
[2018-08-02] MEDS ORDERED: NS 0.9% 1000 ML* 1,000 ML IV ONE (18:55)
--- NOTE | 2018-08-02 19:27 | RAD ---
EXAM: CT Cervical Spine Without Intravenous Contrast CLINICAL HISTORY: 57 years old, male; Pain; Cervicalgia; Additional info: Neck pain TECHNIQUE: Axial computed tomography images of the cervical spine without intravenous contrast. All CT scans at this facility use at least one of these dose optimization techniques: automated exposure control; mA and/or kV adjustment per patient size (includes targeted exams where dose is matched to clinical indication); or iterative reconstruction. Coronal and sagittal reformatted images were created and reviewed. COMPARISON: [facility]OV[facility] CARVAJAL CT SPINE CERVICAL W/O 01/15/2017 5:21 PM FINDINGS: Vertebrae: Vertebral body heights are maintained. No locked or perched facets. Multilevel facet arthropathy. No acute fracture. The dens is intact. Atlantoaxial intervals are normal. Discs/spinal canal/neural foramina: Multilevel degenerative changes with intervertebral disc height loss and osteophyte formation, most pronounced at C5-C6. No spinal canal stenosis. Soft tissues: Unremarkable. Lung apices: Unremarkable as visualized. IMPRESSION: 1. No acute cervical spine fracture. 2. Spondylotic changes of the cervical spine, as above.
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
--- OUTSIDE RECORDS SUMMARY | 2018-08-02 19:30 | XMS REPORT ---
:1960 External Reference #:[id number] Author Organization [facility] Address [address] [place] [address] Phone [phone] Care Team Providers Name Role Phone HCP given Primary Care Physician Unavailable Payers Type Date Identification Payment Subscriber Numbers Provider Health Maintenance Effective: Policy Number: Rodolfo/Sarabjit Chandra Organization (O) 04/29/2014 [id number] e (FERCHO MGD) Ynes PayID: [id number] [address] [address] [place] [address] Problems Date Description Provider Status Onset: 01/20/2016 [...] Heroin Exercise Type/Frequency Exercises rarely Age 1st [place] 19 Years Old Allergies, Adverse Reactions, Alerts Date Description Reaction Status Severity Comments 01/20/2016 Codeine active Rx was long time ago 01/29/2017 Doxycycline active recurrent severe balanitis 12/30/2015 NKDA inactive Medications Medication Date Status Form Strength Qnty SIG Indications Ordering Provider Ibuprofen Active Tablets 800mg 90tabs 1 cap by M25.50 Leticia , 8 mouth Rosi Magana three times a day as needed for pain M54.2 CBD Oil Pills 04/08/2018 Active prn use Unknown From [facility] [facility] Multivitamin 05/02/2017 Active Tablets 1 by mouth Unknown Adult every day B Complex 02/25/2017 Active Tablets 1 by mouth Unknown once daily prn for muscle cramps Freestyle Lite 05/06/2016 Active Strips 100u use as E11. Silcoff, Test nits directed for 67 [place], measuring M.D. blood sugar 1-2x/day and as needed Freestyle Lancets 05/06/2016 Active Misc 100u use as E11. Leticia, nits directed once 67 [place], a day for M.D. blood sugar monitoring Omeprazole 04/01/[address] 20mg 30ca take one K21. Silcoff, ps capsule by 9 [place], mouth up to M.D. once a day, as needed for acid reflux Suboxone 12/19/2015 Active Film 8-2mg 45un 3/4 film F11. Silcoff, its 2x/day; for 20 [place], chronic pain M.D. and opiate dependence; suboxone prescriber# [id number]; rx due 07/12/18 M54.2 Sumatriptan Succinate 05/09/ Hx Tablets 50mg 6tabs 1 by mouth at G43.0 Leticia, 2017 - onset of 09 Rosi Magana 06/08/ migraine; march 2018 repeat once after 2 hours if needed; max 3x/wk Cyclobenzaprine HCL 05/09/ Hx Tablets 10mg 15tab 1 by mouth three M54.2 Silcoff, 2017 - s times a day as Rosi Magana 07/10/ needed as needed 2017 for headache with neck pain. Chlorhexidine 03/13/ Hx Solution 0.12% Rinse with 1/2 Unknown Gluconate 2018 - ounce by mouth for 30 seconds 2018 then spit out. use twice Amoxicillin 03/13/ Hx Capsules 500mg take 1 capsule by Unknown 2018 - mouth three times 04/08/ a day 2018 Ketorolac 02/19/ Hx Tablets 10mg 15tab take 1 tablet by Leticia, Tromethamine 2018 - s mouth every 6 Rosi Magana 03/19/ hours if needed 2018 for pain; take for no more than 5 days Naproxen 11/03/ Hx Tablets 500mg 60tab take one tablet M54.2 Leticia, 2017 - s by mouth twice a Rosi Magana day as needed for 2018 neck pain, take with food Rosuvastatin Calcium 11/03/ Hx Tablets 5mg 30tab take one tablet E11.9 Leticia, 2017 - s by mouth every Rosi Magana day to lower 2018 choloesterol and reduce risk of heart disease PT For Neck Pain Hx please evaluate Cherri2 Leticia, 2016 - and treatChino M.D. 10/08/ instruct in hep, 2017 modalities prn. Naproxen Sodium 05/02/ Hx Tablets 220mg as directed as Unknown 2017 - needed 2016 Nystatin 02/02/ Hx Cream 27603 30uni apply to affected Leticia, 2017 - 0Unit ts area(s) on penis Rosi Magana 02/25/ /GM three times a day 2017 as needed Nystatin-Triamcinolon 01/29/ Hx Cream 65802 30gm apply to affected N48.1 cheikh Kelly 2016 - 0-0.1 areas on penis 3 Rosi Magana 02/25/ Unit/ times a day as 2017 GM-% needed until clear Lidocaine 01/26/ Hx Ointment 5% 35.44 apply to the A07.0 Nick 2017 - 0gm affected area Cristian DNelly 01/29/ three times a day 2017 for pain Fluconazole 01/21/ Hx Tablets 150mg 1tabs 1 by mouth once A07.0 Nick 2017 - Cristian D.O. 2016 Lidocaine HCL 01/21/ Hx Gel 2% 30ml apply to head of A07.0 Nick 2016 - penis 4 times a Cristian, D.O. 01/26/ day as needed for 2017 pain Clindamycin Phosphate 01/21/ Hx Lotion 1% 180ml apply 1 A07.0 Nick, 2016 - application Cristian, D.O. 01/26/ topically to 2017 affected area 2 times per day Doxycycline Hyclate 01/20/ Hx Tablets DR 100mg 56tab take 1 tablet by A69.2 Nick 2016 - s mouth 2 times per 0 Cristian, D.O. 01/30/ day for 28 days 2016 for lyme disease Cyclobenzaprine HCL 01/18/ Hx Tablets 10mg 30tab 1 by mouth three M54.2 Nick 2016 - s times a day as Cristian, D.O. 01/28/ needed as needed 2016 for muscle spasms. Fluticasone 01/05/ Hx Suspension 50mcg 16uni 2 sprays into J31.0 Silcoff, Propionate 2016 - /Act ts each nostril once Rosi Magana 01/28/ daily for nasal 2016 congestion; stop using all other nasal sprays within 1 week of starting this Simvastatin 11/03/ Hx Tablets 20mg 30tab take one tablet E11.6 Leticia, 2015 - s by mouth every 5 Rosi Magana 01/18/ day to lower 2017 cholesterol E11.9 Nystatin 10/09/2016 - Hx Cream 916498Giyr/GM 30units apply to B37.42 Silcoff, 10/19/2016 affected [...] up M25.50 Silcoff, 01/20/2016 to every 8 Rosi Magana hours for pain M25.50 Sumatriptan 11/04/2015 - [...] CPT Code Status Date Vaccine Lot # [id number] Given 08/10/2017 Influenza Virus Vaccine, Quadrivalent, Split, [id number] Preservative Free [id number] Given 05/26/2017 Adacel or Boostrix, TDaP [id number] Given 08/05/2016 Influenza Virus Vaccine, Quadrivalent, Split, [id number] Preservative Free 56487 Given 04/01/2016 Adacel or Boostrix, TDaP [id number] Vital Signs Date Vital Result Comment 07/11/2018 BP Systolic 110 mmHg BP Diastolic 80 mmHg Weight 234.00 lb with sandals 06/08/2018 BP Systolic 116 mmHg BP Diastolic 82 mmHg Weight 240.00 lb with sandals 05/09/2018 BP Systolic 112 mmHg BP Diastolic [...] Test Date Test Result H/L Range Note CBC Auto Diff 05/28/2018 White Blood Count 7.4 10^3/uL 3.5-10.8 Red Blood Count 4.80 10^6/uL 4.00-5.40 Hemoglobin 14.6 g/dL 14.0-18.0 Hematocrit 43 % 42-52 Mean Corpuscular Volume 89 fL 80-94 Mean Corpuscular Hemoglobin 30 pg 27-31 Mean Corpuscular HGB Conc 34 g/dL 31-36 Red Cell Distribution Width 14 % 10.5-15 Platelet Count 128 10^3/uL Low 150-450 Mean Platelet Volume 8.3 um3 7.4-10.4 Abs Neutrophils 6.1 10^3/uL 1.5-7.7 Abs Lymphocytes 0.7 10^3/uL Low 1.0-4.8 Abs Monocytes 0.5 10^3/uL 0-0.8 Abs Eosinophils 0.1 10^3/uL 0-0.6 Abs Basophils 0 10^3/uL 0-0.2 Abs Nucleated RBC 0 10^3/uL Granulocyte % 82.5 % 38-83 Lymphocyte % 10.2 % Low 25-47 Monocyte % 6.2 % 0-7 Eosinophil % 0.8 % 0-6 Basophil % 0.3 % 0-2 Nucleated Red Blood Cells % 0 Inr/Protime 05/28/2018 Inr 1.07 High 0.77-1.02 Laboratory test finding 05/28/2018 Partial Thrombo Time 29.1 seconds 26.0 -36.3 PTT Lactic Acid 1.7 mmol/L 0.5-2.0 1 Comp Metabolic Panel 05/28/2018 Sodium 141 mmol/L 135-145 Potassium 3.9 mmol/L 3.5-5.0 Chloride 107 mmol/L 101-111 Co2 Carbon Dioxide 25 mmol/L 22-32 Anion Gap 9 mmol/L 2-11 Glucose 181 mg/dL High 70-100 Blood Urea Nitrogen 19 mg/dL 6-24 Creatinine 1.03 mg/dL 0.67-1.17 BUN/Creatinine Ratio 18.4 8-20 Calcium 9.5 mg/dL 8.6-10.3 Total Protein 6.9 g/dL 6.4-8.9 Albumin 4.3 g/dL 3.2-5.2 Globulin 2.6 g/dL 2-4 Albumin/Globulin Ratio 1.7 1-3 Total Bilirubin 1.80 mg/dL High 0.2-1.0 Alkaline Phosphatase 71 U/L 34-104 Alt 40 U/L 7-52 Ast 35 U/L 13-39 Egfr Non- 75.0 >60 Egfr 90.7 >60 2 Laboratory test finding 05/28/2018 Lipase 150 U/L High 11.0-82.0 C Reactive Protein 10.78 mg/L High <8.01 Laboratory test finding 05/28/2018 Point of Care Glucose 189 mg/dL High 70 -100 3 Lipid Profile 05/09/2018 Triglycerides 155 mg/dL 4 (Trig/Chol/HDL) Cholesterol 129 mg/dL 5 HDL Cholesterol 42.8 mg/dL 6 LDL Cholesterol 55 mg/dL 7 Laboratory test finding 05/09/2018 Alt 58 U/L High 7-52 8 Laboratory test finding 05/09/2018 Hemoglobin A1c 6.9 Urine Drug Screen Inhouse 04/09/2018 Ua Cocaine - Ua Opiates - Ua Amphetamines - Urine Methanphetamines - Urine Benzodiazepines QN Driver + Urine Oxycodone QL - Laboratory test finding 02/18/2018 Troponin-I (TnI) 0.00 ng/mL <0.04 Laboratory test finding 02/18/2018 Lactic Acid 1.2 mmol/L 0.5-2.0 9 Comp Metabolic Panel 02/18/2018 Sodium 137 mmol/L [...] Egfr Non- 86.5 >60 Egfr 111.2 >60 10 Laboratory test finding 02/18/2018 Troponin-I (TnI) 0.00 ng/mL <0.04 Laboratory test finding 01/07/2018 Hemoglobin A1c 6.2 Lipid Profile (Trig/Chol/HDL) 2017 Triglycerides 126 mg/dL 11 Cholesterol 145 mg/dL 12 HDL Cholesterol 42.1 mg/dL 13 LDL Cholesterol 78 mg/dL 14 Urine Microalbumin Random 2017 Ur Microalbumin (mg/L) < 15.0 mg/L Urine Creatinine 256.40 mg/dL Urine Microalbumin/Creatinine TNP ug/mg <31 15 Urine Drug Screen Inhouse 09/08/2017 Ua Cocaine - Ua Opiates - Ua Amphetamines - Urine Methanphetamines - Urine Benzodiazepines QN Driver - Urine Oxycodone QL - Laboratory test [...] Egfr Non- 90.2 >60 Egfr 116.1 >60 16 Laboratory test finding 01/21/2017 Creatine Kinase(CK) 299 U/L High 10- 223 Urine Micro Inhouse 01/18/2017 Ua WBC occ 17 Ua RBC - 17 Ua Casts 1 17 Ua Epi occ 17 Ua Other - 17 Ua Glucose - 17 Ua Bilirubin - 17 Ua Ketones - 17 Ua Specific Aromas 1.005 17 Ua Blood - 17 Ua PH (omitted) 17 Ua Protein - 17 Ua Urobilinogen - 17 Ua Nitrite - 17 Ua Leukocytes - 17 Culture Urine Inhouse 01/18/2017 Colonies negative 17 CBC Auto Diff 01/18/2017 White Blood Count [...] Egfr Non- 80.7 >60 Egfr 103.7 >60 18 Laboratory test finding 01/18/2017 Magnesium 1.9 mg/dL 1.9-2.7 TSH (Thyroid Stim Horm) 3.36 mcIU/mL 0.34-5.60 Vitamin D Total 25(Oh) 24.3 ng/mL Low 30-50 Vitamin B12 882 pg/mL 180-914 19 Lyme Western Blot 01/18/2017 Lyme Disease IgG Ab WB Negative Negative Lyme Disease IgG Bands Present p41, p23, kDa Lyme Disease IgM Ab WB Positive Negative Lyme Disease IgM Bands Present p41, p23, kDa Lyme Disease Interpretation See Comment 20 Laboratory test finding 01/18/2017 Folic Acid (Folate) > 20.00 ng/mL > 3.99 C Reactive Protein 1.06 mg/L < 5.00 21 Creatine Kinase(CK) 497 U/L High 10-223 Erythrocyte Sed Rate 6 mm/Hr 0-20 Phosphorus 4.7 mg/dL 2.5-5.0 Uric Acid 5.6 mg/dL 4.4-7.6 Tick-Borne Panel PCR Blood 01/18/2017 Babesia microti PCR Negative Negative Babesia ducani Negative Negative Babesia divergens/Mo-1 Negative Negative 22 Anaplasma phagocytophilum Negative Negative Ehrlichia chaffeensis Negative Negative Ehrlichia ewingii/canis Negative Negative Ehrlichia muris-like Negative Negative 23 B. miyamotoi PCR, B Negative Negative 24 Rapid Influenza A & B 01/17/2017 Influenza A Molecular NEGATIVE Negative 25 Molecular Influenza B Molecular NEGATIVE Negative Laboratory test 01/17/2017 Point of Care 131 mg/dL High 74-106 26 finding Glucose Laboratory test 01/15/2017 Urine Culture And SEE RESULT 27, 28 finding Sensitivities BELOW Laboratory test 01/15/2017 Point of Care 176 mg/dL High 74-106 29 finding Glucose Laboratory test 12/04/2016 Hemoglobin A1c 6.5 finding Rapid Influenza A 11/21/2016 Influenza A NEGATIVE Negative 30 & B Molecular Molecular Influenza B Molecular NEGATIVE Negative Laboratory test 11/21/2016 Rapid Strep Negative Negative 31 finding Molecular Laboratory test 11/21/2016 Rapid Influenza A B SEE RESULT BELOW 32 finding Antigen Rapid Strep A Request SEE RESULT BELOW 33 CBC Auto Diff 10/19/2016 White Blood Count [...] Egfr Non- 94.3 >60 Egfr 121.3 >60 34 Laboratory test finding 10/19/2016 Lyme Disease Serology Negative Negative 35 CBC Auto Diff 10/05/2016 White Blood Count [...] Egfr Non- 82.9 >60 Egfr 106.7 >60 36 Laboratory test finding 09/08/2016 Hemoglobin A1c 6.3 Urine Drug Screen Inhouse 09/08/2016 Ua Cocaine - Ua Opiates - Ua Amphetamines - Urine Methanphetamines - Urine Benzodiazepines QN Driver - Urine Oxycodone QL - Laboratory test finding 07/09/2016 Surgical Pathology SEE RESULT BELOW 37, 38 Laboratory test finding 07/09/2016 Clotest SEE RESULT BELOW 39, 40 Laboratory test finding 06/03/2016 Hemoglobin A1c 6.4 Laboratory test finding 05/06/2016 Glucose Quantitative 196 41 Lipid Profile 04/08/2016 Triglycerides 252 mg/dL 42 (Trig/Chol/HDL) Cholesterol 156 mg/dL 43 HDL Cholesterol 29.6 mg/dL 44 LDL Cholesterol 76 mg/dL 45 Urine Microalbumin Random 04/08/2016 Ur Microalbumin (mg/L) < 5.0 mg/L Urine Creatinine 240.05 mg/dL Urine Microalbumin/Creatinine TNP ug/mg <31 46 Laboratory test finding 04/08/2016 TSH (Thyroid Stim Horm) 1.90 ?IU/mL 0.34-5.60 47 Creatine Kinase(CK) 191 U/L 10-223 48 Laboratory test finding 03/04/2016 Point of Care Glucose 127 mg/dL High 74 -106 49 Laboratory test finding 03/02/2016 Hemoglobin A1c 6.6 Urine Drug Screen Inhouse 03/02/2016 Ua Cocaine - Ua Opiates - Ua Amphetamines - Urine Methanphetamines - Urine Benzodiazepines QN Driver - Urine Oxycodone QL - CBC Auto [...] Egfr Non- 90.6 >60 Egfr 116.5 >60 50 Laboratory test finding 02/28/2016 Amylase 28 U/L Low 29-103 Lipase 39 U/L 11.0-82.0 C Reactive Protein 2.32 mg/L < 5.00 51 Urine Micro Inhouse 02/18/2016 Ua WBC - 52 Ua RBC - 52 Ua Casts - 52 Ua Epi - 52 Ua Other - 52 Ua Glucose - 52 Ua Bilirubin - 52 Ua Ketones - 52 Ua Specific Aromas 1.010 52 Ua Blood - 52 Ua PH 7.0 52 Ua Protein - 52 Ua Urobilinogen - 52 Ua Nitrite - 52 Ua Leukocytes - 52 Liver Function Panel 02/18/2016 Total Protein 6.8 [...] - Urine Methanphetamines - Urine Benzodiazepines QN Driver - Urine Oxycodone QL - Urine Drug Screen Inhouse 01/20/2016 Ua Cocaine - Ua Opiates - Ua Amphetamines - Urine Methanphetamines - Urine Benzodiazepines QN Driver - Urine Oxycodone QL - Laboratory test finding 12/30/2015 Smooth Muscle Antibody Negative Negative 53 Katerina (Antinuclear Antibodies) Negative Negative CBC Auto [...] Laboratory test finding 12/30/2015 Ceruloplasmin 15.9 mg/dL 54 Endomysial Abs Negative Negative 55 Ferritin 156.7 ng/mL 24-336 Iron & Iron [...] Culture & Gram Stain SEE RESULT BELOW 56 CSF Cell Count 2015 Body Fluid Appearance Clear Body Fluid Color Colorless CSF Tube # 4 Body Fluid Volume 1.5 mL Body Fluid WBC 1 Body Fluid RBC 0 Body Fluid Lymph 9 Body Fluid Gooding 5 Body Fluid Total Cells Counted 14 Body Fluid Comment (SEE NOTE) 57 Fluid Reviewed By MD (SEE NOTE) 58 CBC Auto Diff 2015 White Blood Count [...] Egfr Non- 81.9 >60 Egfr 105.4 >60 59 CBC Auto Diff 11/02/2015 White Blood Count [...] Reactive Protein < 1.00 mg/L < 5.00 60 Comp Metabolic Panel 11/02/2015 Sodium 137 mmol/L [...] Egfr Non- 100.1 >60 Egfr 128.7 >60 61 Laboratory test finding 10/26/2015 Lipase 55 U/L 11.0-82.0 C Reactive Protein < 1.00 mg/L < 5.00 62 Magnesium TNP mg/dL 1.9-2.7 63 Comp Metabolic Panel 10/26/2015 Sodium 133 mmol/L [...] Egfr Non- 87.5 >60 Egfr 112.5 >60 64 Potassium TNP mmol/L 3.5-5.0 65 Anion Gap TNP mmol/L 2-11 Ast TNP U/L 13-39 66 CBC Auto Diff 10/26/2015 White Blood Count [...] Nucleated Red Blood Cells % 0 1 [facility] Severe Sepsis and Septic Shock Management Bundle [...] 5 Kidney failure <15 (or dialysis) 3 Disease Case Manager: [id number] 4 Desirable: <150 Borderline High: 150-199 High: 200-499 Very High: >500 5 Desirable: <200 Borderline High: 200-239 High: >239 6 Low: <40 Desirable: 40-60 High: >60 7 Desirable: <100 Near Optimal: 100-129 Borderline High: 130-159 High: 160-189 Very High: >189 8 FASTING 12 HOUR 9 [facility] Severe Sepsis and Septic Shock Management Bundle Measure requires all lactic acids initially measuring >2.0 mmol/L be repeated. 10 Because ethnic data is not always [...] 5 Kidney failure <15 (or dialysis) 11 Desirable: <150 Borderline High: 150-199 High: 200-499 Very High: >500 12 Desirable: <200 Borderline High: 200-239 High: >239 13 Low: <40 Desirable: 40-60 High: >60 14 Desirable: <100 Near Optimal: 100-129 Borderline High: 130-159 High: 160-189 Very High: >189 15 Unable to calculate due to low microalbumin 16 Because ethnic data is not always readily [...] 15-29 5 Kidney failure <15 (or dialysis) 17 void, clear, pale yellow 18 Because ethnic data is not always readily [...] 15-29 5 Kidney failure <15 (or dialysis) 19 Normal Range 180 to 914 Indeterminate Range 145 to 180 Deficient Range <145 20 Consistent with early infection with Borrelia burgdorferi. [...] screening test (e.g., EIA). Test Performed by: [facility] [place] [address] Mine Promotor: Ghassan Chavez II, M.D., Ph.D. 21 Acute inflammation: >10.00 22 ADDITIONAL INFORMATION This test was developed and its performance characteristics determined by [facility] in a manner consistent with CLIA requirements. This test has not been cleared or approved by the U.S. Food and Drug Administration. 23 ADDITIONAL INFORMATION This test was developed and its performance characteristics determined by [facility] in a manner consistent with CLIA requirements. This test has not been cleared or approved by the U.S. Food and Drug Administration. 24 ADDITIONAL INFORMATION This test was developed and its performance characteristics determined by [facility] in a manner consistent with CLIA requirements. This test has not been cleared or approved by the U.S. Food and Drug Administration. Test Performed by: [facility] [place] [address] Mine Promotor: Ghassan Chavez II, M.D., Ph.D. 25 Disease Case Manager: [id number] Holly Im 26 Disease Case Manager: [id number] Holly Im 27 [id number] 28 SEE RESULT BELOW Name: MARCELLO SAENZ : [address]: Shira Apodaca MD Acct: [id number] Unit: [id number] AGE: 56 Location: [facility] Re01/15/17 SEX: M Status: DEP ER SPEC: [id number] GABINO: 01/15/17-1709 [facility] [address]: Shira Apodaca MD REQ: [id number] RECD: 01/16/17-1221 STATUS: ADIEL STAUFFER DR: Chino Kelly MD _ SOURCE: URINE SPDESC: ORDERED: Urine Culture COMMENTS: [id number] Procedure Result Reported Site Urine Culture Final 01/17/17- 1346 ML No Growth (<1,000 CFU/mL) * ML - [facility] ([facility]) . END OF REPORT * ML=Testing performed at Main Lab DEPARTMENT OF PATHOLOGY, [address] [place] [address] Wilberto Crum M.D. Director [facility] # [id number] 29 Disease Case Manager: [id number] ANALILIA HOUSTON 30 Disease Case Manager: [id number] Wooden Anju 31 Disease Case Manager: [id number] Wooden Anju 32 SEE RESULT BELOW Name: MARCELLO SAENZ : [address]: Darell Carroll MD Acct: [id number] Unit: [id number] AGE: 56 Location: ED Re11/21/16 SEX: M Status: REG ER SPEC: [id number] GABINO: 11/21/16 [facility] [address]: Darell Carroll MD REQ: [id number] RECD: 11/21/16 STATUS: ADIEL STAUFFER DR: Chino Kelly MD _ SOURCE: NASAL SPDESC: ORDERED: Flu A B Request Procedure Result Reported Site Rapid Influenza A B Request Final 11/21/16229 ML Specimen received for Influenza A/B Molecular testing * ML - MAIN LAB ([facility]) . END OF REPORT * ML=Testing performed at Main Lab DEPARTMENT OF PATHOLOGY, [address] [place] [address] Wilberto Crum M.D. Director [facility] # [id number] 33 SEE RESULT BELOW Name: MARCELLO SAENZ : [address]: Darell Carroll MD Acct: [id number] Unit: [id number] AGE: 56 Location: ED Re11/21/16 SEX: M Status: REG ER SPEC: [id number] GABINO: 11/21/16 [facility] [address]: Darell Carroll MD REQ: [id number] RECD: 11/21/16 STATUS: ADIEL STAUFFER DR: Chino Kelly MD _ SOURCE: THROAT SPDESC: ORDERED: Strep A Request Procedure Result Reported Site Rapid Strep A Request Final 11/21/16- 0230 ML Specimen received for Rapid Strep A Molecular testing * ML - MAIN LAB ([facility]) . END OF REPORT * ML=Testing performed at Main Lab DEPARTMENT OF PATHOLOGY, [address] [place] [address] Wilberto Crum M.D. Director [facility] # [id number] 34 Because ethnic data is not always readily [...] 15-29 5 Kidney failure <15 (or dialysis) 35 Serologic response to B. burgdorferi infection is not detected, but cannot rule out early infection during which low or undetectable antibody levels to B. burgdorferi may be present. If clinically indicated, a new serum specimen should be submitted in 7-14 days. Test Performed by: [place] [address] Mine Promotor: Ghassan Chavez II, M.D., Ph.D. 36 Because ethnic data is not always readily [...] 15-29 5 Kidney failure <15 (or dialysis) 37 [id number] 38 SEE RESULT BELOW Name: MARCELLO SAENZ : [address]: Kahlil Sauceda MD Acct: [id number] Unit: [id number] AGE: 55 Location: [facility] Re07/09/16 SEX: M Status: DEP REF SPEC: [id number] GABINO: 07/09/16-13[address] [facility] [address]: Kahlil Sauceda MD REQ: [id number] RECD: 07/09/16-0991 STATUS: CRYSTAL STAUFFER DR: Chino Kelly MD _ ORDERED: LEVEL IV COMMENTS: [id number] FINAL DIAGNOSIS Colon, descending, biopsy: -- Tubular [...] performed at Main Lab DEPARTMENT OF PATHOLOGY, [address] [place] [address] Wilberto Crum M.D. Director [facility] # [id number] 39 [id number] SEE RESULT BELOW Name: MARCELLO SAENZ : [address]: Kahlil Sauceda MD Acct: [id number] Unit: [id number] AGE: 55 Location: [facility] Re07/09/16 SEX: M Status: REG REF SPEC: [id number] GABINO: 07/09/16-1240 [facility] [address]: Kahlil Sauceda MD REQ: [id number] RECD: 07/09/16 STATUS: ADIEL STAUFFER DR: Chino Kelly MD _ SOURCE: GAS ANTRUM SPDESC: ORDERED: Clotest COMMENTS: [id number] Procedure Result Reported Site Clotest Final 07/10/16- 075 ML Clotest Negative * ML - MAIN LAB ([facility]) . END OF REPORT * ML=Testing performed at Main Lab DEPARTMENT OF PATHOLOGY, [address] [place] [address] Wilberto Crum M.D. Director [facility] # [id number] 41 Dr. Kelly aware 42 Desirable <150 Borderline high 150-199 High 200-499 Very High >500 43 Desirable <200 Borderline high 200-239 High >239 44 Low <40 Desirable: 40-60 High: >60 45 Desirable: <100 mg/dL Near Optimal: 100-129 mg/dL Borderline High: 130-159 mg/dL High: 160-189 mg/dL Very High: >189 mg/dL 46 Unable to calculate due to low microalbumin 47 FASTING 12 HOUR 48 FASTING 12 HOUR 49 Disease Case Manager: [id number] BRAUN 50 Because ethnic data is not always readily [...] 15-29 5 Kidney failure <15 (or dialysis) 51 Acute inflammation: >10.00 52 void, clear, yellow 53 Test Performed by: [place] [address] Mine Promotor: Ghassan Chavez II, M.D., Ph.D. 54 REFERENCE VALUE 15.0 - 30.0 Test Performed by: [place] [address] Mine Promotor: Ghassan Chavez II, M.D., Ph.D. 55 Negative in normal individuals. May be negative in dermatitis herpatiformis or celiac disease patients adhering to a gluten free diet. ADDITIONAL INFORMATION Laboratory developed test. Test Performed by: [facility] - [address] [address] Mine Promotor: Ghassan Chavez II, M.D., Ph.D. 56 SEE RESULT BELOW Name: MARCELLO SAENZ : [address]: Jem Peña MD Acct: [id number] Unit: [id number] AGE: 55 Location: ED Re11/03/15 SEX: M Status: DEP ER SPEC: [id number] GABINO: 11/03/15 [facility] [address]: Jem Peña MD REQ: [id number] RECD: 11/03/15 STATUS: ADIEL STAUFFER DR: Chino Kelly MD _ SOURCE: CSF SPDESC: ORDERED: CSF Cult/GS Procedure Result Reported Site CSF Gram Stain Final 11/04/15- 0742 ML 1+ Epithelial Cells No Polys Observed No Organisms Seen Preparation By Cytospin Smear CSF Culture Final 11/07/15- 0849 ML No Growth Day 4 * ML - MAIN LAB ([facility]) . END OF REPORT * ML=Testing performed at Main Lab DEPARTMENT OF PATHOLOGY, [address] [place] [address] Wilberto Crum M.D. Director [facility] # [id number] 57 Differential performed on concentrated smear. 58 No evidence of malignancy or acute inflammatory response. No microorganisms. Reviewed by Dr. Crum 59 Because ethnic data is not always readily [...] 15-29 5 Kidney failure <15 (or dialysis) 60 Acute inflammation: >10.00 61 Because ethnic data is not always readily [...] 15-29 5 Kidney failure <15 (or dialysis) 62 Acute inflammation: >10.00 63 Unable to report test result due to hemolysis. 64 Because ethnic data is not always readily [...] 15-29 5 Kidney failure <15 (or dialysis) 65 Unable to report test result due to hemolysis. 66 Unable to report test result due to hemolysis. Procedures Date CPT Code Description Status Comment 10/19/2017 Diabetic Retinal Eye Exam Completed no retinopathy (Dr Clement ) 10/09/2017 Diabetic Foot Exam Completed normal DP and TP pulses, no sores or ulcers, normal monofilament and vibration sense 05/03/2017 74929 Electrocardiogram Complete Completed 06/29/2016 Colonoscopy Completed 2016: 1 small polyp (TA); fu 5yrs Encounters Type Date Location Provider CPT E/M Dx Office Visit 07/11/2018 4:30p Main Office Chino Kelly M.D. 10161 F11.20 E11.9 G43.009 Office Visit 06/08/2018 11:45a Main Office Chino Kelly M.D. 72412 F11.20 G43.009 E11.9 S92.515A Office Visit 05/09/2018 9:30a Main Office Chino Kelly M.D. 76040 E11.9 F11.20 G43.009 Office Visit 04/09/2018 9:45a Main Office Chino Kelly M.D. 11563 F11.20 E11.9 Z23 M25.50 M54.2 Z79.899 Office Visit 03/14/2018 10:15a Main Office Chino Kelly M.D. 37151 F11.20 E11.9 K08.9 Office Visit 02/07/2018 10:15a Main Office Chino Kelly M.D. 69153 F11.20 E11.9 Office Visit 01/07/2018 2:00p Main Office Chino Kelly M.D. 62505 F11.20 M54.2 E11.9 Office Visit 12/06/2017 11:45a Main Office Chino Kelly M.D. 57383 F11.20 E11.9 S06.0x1D Office Visit 2017 2:30p Main Office Chino Kelly M.D. 95703 F11.20 M54.2 E11.9 Z71.89 Office Visit 10/09/2017 9:45a Main Office Chino Kelly M.D. 57445 E11.9 F11.20 R11.0 Office Visit 09/08/2017 10:30a Main Office Chino Kelly M.D. 54970 E11.9 F11.20 M54.2 Office Visit 08/10/2017 9:45a Main Office Chino Kelly M.D. 92661 F11.20 R11.0 Z41.8 Z23 Office Visit 07/07/2017 11:30a Main Office Chion Kelly M.D. 69005 F11.20 E11.9 Office Visit 06/04/2017 10:15a Main Office Chino Kelly M.D. 77201 E11.9 F11.20 L91.8 Office Visit 05/03/2017 11:00a Main Office Chino Kelly M.D. 80997 F11.20 L72.3 E11.9 Office Visit 03/30/2017 10:00a Main Office Chino Kelly M.D. 60639 F11.20 M54.2 E11.9 Office Visit 02/26/2017 10:15a Main Office Chino Kelly M.D. 75289 E11.9 F11.20 Office Visit 01/29/2017 10:15a Main Office Chino Kelly M.D. 06716 N48.1 A69.20 F11.20 Office Visit 01/21/2017 9:45a Main Office Cristian Romero D.O. 92845 A07.0 Office Visit 01/18/2017 9:45a Main Office rCistian Romero D.O. 99925 R35.0 R25.2 M54.2 G43.119 R53.83 Office Visit 01/05/2017 9:30a Main Office Chino Kelly M.D. 84255 F11.20 Z71.51 J31.0 R25.2 H10.213 Office Visit 12/04/2016 9:30a Main Office Chino Kelly M.D. 44059 E11.9 F11.20 R11.0 G43.009 Z71.51 Office Visit 2016 9:30a Main Office Chino Kelly M.D. 32393 F11.20 R11.0 E11.9 G47.33 G47.00 Office Visit 10/09/2016 9:30a Main Office Chino Kelly M.D. 60004 B37.42 F11.20 K21.9 R11.0 G43.009 E11.65 Office Visit 09/08/2016 3:45p Main Office Cristian Romero D.O. 01025 E11.65 F11.20 K21.9 R11.0 G43.009 Office Visit 08/05/2016 2:30p Main Office Chino Kelly M.D. 13745 F11.20 E11.65 K21.9 R11.0 G43.009 Z71.89 Z23 Office Visit 07/08/2016 1:30p Main Office Chino Kelly M.D. 60521 F11.20 G47.33 S92.355D K76.0 E66.9 K21.9 R11.0 E11.65 G43.009 Office Visit 06/03/2016 4:15p Main Office Chino Kelly M.D. 19212 E11.65 E66.9 F11.20 G47.33 S92.355D Office Visit 05/06/2016 11:15a Main Office Chino Kelly M.D. 07367 E11.65 R10.11 K76.0 E66.9 F11.20 M79.1 G47.33 Z68.32 Office Visit 04/01/2016 11:00a Main Office Chino Kelly M.D. 53275 Z23 F11.20 R10.11 K76.0 E11.65 E66.9 Z13.220 R53.83 M79.1 K21.9 Z23 Office Visit 03/02/2016 11:15a Main Office Chino Kelly M.D. 38916 F11.20 K76.0 R10.11 E66.9 E11.65 B35.1 R73.9 Office Visit 02/03/2016 11:30a Main Office Chino Kelly M.D. 25675 F11.20 R35.0 B35.1 M54.2 M25.50 Office Visit 01/20/2016 11:00a Main Office Chino Kelly M.D. 49722 F11.20 B35.1 M25.50 G43.009 Z51.81 Office Visit 12/30/2015 11:30a Main Office Chino Kelly M.D. 75782 F11.20 M54.2 M54.5 F41.9 R74.0 Office Visit 11/27/2015 12:55p Main Office Chino Kelly M.D. 02772 F11.20 M54.5 F41.9 R74.0 E80.7 G93.0 M54.2 Plan of Care Future Appointment(s):08/08/2018 11:45 am - Chino Kelly M.D. at Main Fvksri5907/11/2018 - Chino Kelly M.D.F11.20 Opioid dependence, uncomplicatedFollow up:RTO 1mo recheck Suboxone w/ A1c.E11.9 Type 2 diabetes mellitus without complicationsComments:will remain off of rosuvastatin. We will try an alternate statin in the fall.Encouraged continued zkmsufU48.009 Migraine w/o aura, not intractable, w/o status migrainosus
--- OUTSIDE RECORDS SUMMARY | 2018-08-02 19:31 | XMS REPORT ---
:1960 External Reference #:[id number] Author Organization [facility] Address [address] [place] [address] Phone [phone] Care Team Providers Name Role Phone HCP given Primary Care Physician Unavailable Payers Type Date Identification Payment Subscriber Numbers Provider Health Maintenance Effective: Policy Number: Rodolfo/Sarabjit Chandra Organization (O) 04/29/2014 [id number] e (FERCHO MGD) Ynes PayID: [id number] [address] [address] [place] [address] Problems Date Description Provider Status Onset: 01/20/2016 [...] Heroin Exercise Type/Frequency Exercises rarely Age 1st [place] 19 Years Old Allergies, Adverse Reactions, Alerts [...] Pills 04/08/2018 Active prn use Unknown From [facility] Multivitamin 05/02/2017 Active Tablets 1 by mouth [...] pain M.D. and opiate dependence; suboxone prescriber# [id number]; rx due 06/12/18 M54.2 Sumatriptan Succinate 05/09/ Hx Tablets 50mg [...] - needed 2016 Nystatin 02/02/ Hx Cream 78806 30uni apply to affected Leticia, 2017 - 0Unit ts area(s) on penis Rosi Magana 02/25/ /GM three times a day 2017 as needed Nystatin-Triamcinolon 01/29/ Hx Cream 59766 30gm apply to affected N48.1 cheikh Kelly [...] 150mg 1tabs 1 by mouth once A07.0 iNck 2017 - Cristian D.O. 2016 Lidocaine HCL [...] cholesterol E11.9 Nystatin 10/09/2016 - Hx Cream 805654Sejw/GM 30units apply to B37.42 Silcoff, 10/19/2016 affected [...] CPT Code Status Date Vaccine Lot # [id number] Given 08/10/2017 Influenza Virus Vaccine, Quadrivalent, Split, [id number] Preservative Free 37885 Given 05/26/2017 Adacel or Boostrix, TDaP 39914 Given 08/05/2016 Influenza Virus Vaccine, Quadrivalent, Split, [id number] Preservative Free 71480 Given 04/01/2016 Adacel or Boostrix, TDaP [id number] Vital Signs Date Vital Result Comment 07/11/2018 [...] - Urine Methanphetamines - Urine Benzodiazepines QN [place] + Urine Oxycodone QL - Laboratory test [...] - Urine Methanphetamines - Urine Benzodiazepines QN [place] - Urine Oxycodone QL - Laboratory test [...] 17 Ua Ketones - 17 Ua Specific [place] 1.005 17 Ua Blood - 17 Ua [...] - Urine Methanphetamines - Urine Benzodiazepines QN [place] - Urine Oxycodone QL - Laboratory test [...] - Urine Methanphetamines - Urine Benzodiazepines QN [place] - Urine Oxycodone QL - CBC Auto [...] 52 Ua Ketones - 52 Ua Specific [place] 1.010 52 Ua Blood - 52 Ua [...] - Urine Methanphetamines - Urine Benzodiazepines QN [place] - Urine Oxycodone QL - Urine Drug Screen Inhouse 01/20/2016 Ua Cocaine - Ua Opiates - Ua Amphetamines - Urine Methanphetamines - Urine Benzodiazepines QN [place] - Urine Oxycodone QL - Laboratory test [...] 0 Body Fluid Lymph 9 Body Fluid [place] 5 Body Fluid Total Cells Counted 14 [...] Nucleated Red Blood Cells % 0 1 [facility] Severe Sepsis and Septic Shock Management [...] 5 Kidney failure <15 (or dialysis) 3 Environmental Services Assistant: [id number] 4 Desirable: <150 Borderline High: 150-199 High: 200-499 Very High: >500 5 Desirable: <200 Borderline High: 200-239 High: >239 6 Low: <40 Desirable: 40-60 High: >60 7 Desirable: <100 Near Optimal: 100-129 Borderline High: 130-159 High: 160-189 Very High: >189 8 FASTING 12 HOUR 9 [facility] Severe Sepsis and Septic Shock Management [...] (e.g., EIA). Test Performed by: [facility] [employer] [place] [address] Game Design Instructor: Ghassan Chavez II, M.D., Ph.D. 21 Acute inflammation: >10.00 22 ADDITIONAL INFORMATION This test was developed and its performance characteristics determined by [facility] in a manner consistent with CLIA requirements. This test has not been cleared or approved by the U.S. Food and Drug Administration. 23 ADDITIONAL INFORMATION This test was developed and its performance characteristics determined by [facility] in a manner consistent with CLIA requirements. This test has not been cleared or approved by the U.S. Food and Drug Administration. 24 ADDITIONAL INFORMATION This test was developed and its performance characteristics determined by [facility] in a manner consistent with CLIA requirements. This test has not been cleared or approved by the U.S. Food and Drug Administration. Test Performed by: [facility] [place] [address] Game Design Instructor: Ghassan Chavez II, M.D., Ph.D. 25 Environmental Services Assistant: [id number] Holly Im 26 Environmental Services Assistant: [id number] Holly Im 27 [id number] 28 SEE RESULT BELOW Name: MARCELLO SAENZ : [address]: Shira Apodaca MD Acct: [id number] Unit: [id number] AGE: 56 Location: [facility] Re01/15/17 SEX: M Status: DEP ER SPEC: [id number] GABINO: 01/15/17-[address] [facility] [address]: Shira Apodaca MD REQ: [id number] RECD: 01/16/17-1221 STATUS: ADIEL STAUFFER DR: Chino Kelly MD _ SOURCE: URINE SPDESC: ORDERED: Urine Culture COMMENTS: [id number] Procedure Result Reported Site Urine Culture Final 01/17/17- 1346 ML No Growth (<1,000 CFU/mL) * ML - [facility] ([facility]) . END OF REPORT * ML=Testing performed at Main Lab DEPARTMENT OF PATHOLOGY, [address] [place] [address] Wilberto Crum M.D. Director [facility] # [id number] 29 Environmental Services Assistant: [id number] ANALILIA HOUSTON 30 Environmental Services Assistant: [id number] Wooden Anju 31 Environmental Services Assistant: [id number] Wooden Anju 32 SEE RESULT BELOW Name: MARCELLO SAENZ : [address]: Darell Carroll MD Acct: [id number] Unit: [id number] AGE: 56 Location: ED Re11/21/16 SEX: M Status: REG ER SPEC: [id number] GABINO: 11/21/[address] [facility] [address]: Darell Carroll MD REQ: [id number] RECD: 11/21/16 STATUS: ADIEL STAUFFER DR: Chino Kelly MD _ SOURCE: NASAL SPDESC: ORDERED: Flu A B Request Procedure Result Reported Site Rapid Influenza A B Request Final 11/21/16229 ML Specimen received for Influenza A/B Molecular testing * ML - MAIN LAB ([facility]) . END OF REPORT * ML=Testing performed at Main Lab DEPARTMENT OF PATHOLOGY, [address] [place] [address] Wilberto Crum M.D. Director [facility] # [id number] 33 SEE RESULT BELOW Name: MARCELLO SAENZ : [address]: Darell Carroll MD Acct: [id number] Unit: [id number] AGE: 56 Location: ED Re11/21/16 SEX: M Status: REG ER SPEC: [id number] GABINO: 11/21/[address] [facility] [address]: Darell Carroll MD REQ: [id number] RECD: 11/21/16 STATUS: ADIEL STAUFFER DR: Chino Kelly MD _ SOURCE: THROAT SPDESC: ORDERED: Strep A Request Procedure Result Reported Site Rapid Strep A Request Final 11/21/16- 0230 ML Specimen received for Rapid Strep A Molecular testing * ML - MAIN LAB ([facility]) . END OF REPORT * ML=Testing performed at Main Lab DEPARTMENT OF PATHOLOGY, [address] [place] [address] Wilberto Crum M.D. Director [facility] # [id number] 34 Because ethnic data is not always [...] submitted in 7-14 days. Test Performed by: [place] [address] Game Design Instructor: Ghassan Chavez II, M.D., Ph.D. 36 Because [...] 5 Kidney failure <15 (or dialysis) 37 [id number] 38 SEE RESULT BELOW Name: MARCELLO SAENZ : [address]: Kahlil Sauceda MD Acct: [id number] Unit: [id number] AGE: 55 Location: [facility] Re07/09/16 SEX: M Status: DEP REF SPEC: [id number] GABINO: 07/09/16-[address] [facility] [address]: Kahlil Sauceda MD REQ: [id number] RECD: 07/09/16-8755 STATUS: CRYSTAL STAUFFER DR: Chino Kelly MD _ ORDERED: LEVEL IV COMMENTS: [id number] FINAL DIAGNOSIS Colon, descending, biopsy: -- Tubular [...] performed at Main Lab DEPARTMENT OF PATHOLOGY, [address] [place] [address] Wilberto Crum M.D. Director [facility] # [id number] 39 [id number] 40 SEE RESULT BELOW Name: MARCELLO SAENZ : [address]: Kahlil Sauceda MD Acct: [id number] Unit: [id number] AGE: 55 Location: ENDOC Re07/09/16 SEX: M Status: REG REF SPEC: [id number] GABINO: 07/09/16-[address] [facility] [address]: Kahlil Sauceda MD REQ: [id number] RECD: 07/09/16 STATUS: ADIEL STAUFFER DR: Chino Kelly MD _ SOURCE: GAS ANTRUM SPDESC: ORDERED: Clotest COMMENTS: [id number] Procedure Result Reported Site Clotest Final 07/10/16- 075 ML Clotest Negative * ML - MAIN LAB ([facility]) . END OF REPORT * ML=Testing performed at Main Lab DEPARTMENT OF PATHOLOGY, [address] [place] [address] Wilberto Crum M.D. Director [facility] # [id number] 41 Dr. Kelly aware 42 Desirable <150 [...] 12 HOUR 48 FASTING 12 HOUR 49 Environmental Services Assistant: [id number] BRAUN 50 Because ethnic data is not [...] void, clear, yellow 53 Test Performed by: [place] [address] Game Design Instructor: Ghassan Chavez II, M.D., Ph.D. 54 REFERENCE VALUE 15.0 - 30.0 Test Performed by: [place] [address] Game Design Instructor: Ghassan Chavez II, M.D., Ph.D. 55 Negative in normal individuals. May be negative in dermatitis herpatiformis or celiac disease patients adhering to a gluten free diet. ADDITIONAL INFORMATION Laboratory developed test. Test Performed by: [facility] - [address] [address] Game Design Instructor: Ghassan Chaevz II, M.D., Ph.D. 56 SEE RESULT BELOW Name: MARCELLO SAENZ : [address]: Jem Peña MD Acct: [id number] Unit: [id number] AGE: 55 Location: ED Re11/03/15 SEX: M Status: DEP ER SPEC: [id number] GABINO: 11/03/[address] [facility] [address]: Jem Peña MD REQ: [id number] RECD: 11/03/15 STATUS: ADIEL STAUFFER DR: Chino Kelly MD _ SOURCE: CSF SPDESC: ORDERED: CSF Cult/GS Procedure Result Reported Site CSF Gram Stain Final 11/04/15- 0742 ML 1+ Epithelial Cells No Polys Observed No Organisms Seen Preparation By Cytospin Smear CSF Culture Final 11/07/15- 0849 ML No Growth Day 4 * ML - MAIN LAB ([facility]) . END OF REPORT * ML=Testing performed at Main Lab DEPARTMENT OF PATHOLOGY, [address] [place] [address] Wilberto Crum M.D. Director [facility] # [id number] 57 Differential performed on concentrated smear. 58 [...] ulcers, normal monofilament and vibration sense 05/03/2017 83160 Electrocardiogram Complete Completed 06/29/2016 Colonoscopy Completed 2016: 1 small polyp (TA); fu 5yrs Encounters Type Date Location Provider CPT E/M Dx Office Visit 06/08/2018 11:45a Main Office Chino Kelly M.D. 03926 F11.20 G43.009 E11.9 S92.515A Office Visit 05/09/2018 9:30a Main Office Chino Kelly M.D. 24351 E11.9 F11.20 G43.009 Office Visit 04/09/2018 9:45a Main Office Chino Kelly M.D. 44348 F11.20 E11.9 Z23 M25.50 M54.2 Z79.899 Office Visit 03/14/2018 10:15a Main Office Chino Kelly M.D. 55170 F11.20 E11.9 K08.9 Office Visit 02/07/2018 10:15a Main Office Chino Kelly M.D. 73974 F11.20 E11.9 Office Visit 01/07/2018 2:00p Main Office Chino Kelly M.D. 51496 F11.20 M54.2 E11.9 Office Visit 12/06/2017 11:45a Main Office Chino Kelly M.D. 77959 F11.20 E11.9 S06.0x1D Office Visit 2017 2:30p Main Office Chino Kelly M.D. 15770 F11.20 M54.2 E11.9 Z71.89 Office Visit 10/09/2017 9:45a Main Office Chino Kelly M.D. 02155 E11.9 F11.20 R11.0 Office Visit 09/08/2017 10:30a Main Office Chino Kelly M.D. 61809 E11.9 F11.20 M54.2 Office Visit 08/10/2017 9:45a Main Office Chino Kelly M.D. 42985 F11.20 R11.0 Z41.8 Z23 Office Visit 07/07/2017 11:30a Main Office Chino Kelly M.D. 07013 F11.20 E11.9 Office Visit 06/04/2017 10:15a Main Office Chino Kelly M.D. 17370 E11.9 F11.20 L91.8 Office Visit 05/03/2017 11:00a Main Office Chino Kelly M.D. 60380 F11.20 L72.3 E11.9 Office Visit 03/30/2017 10:00a Main Office Chino Kelly M.D. 66400 F11.20 M54.2 E11.9 Office Visit 02/26/2017 10:15a Main Office Chino Kelly M.D. 98408 E11.9 F11.20 Office Visit 01/29/2017 10:15a Main Office Chino Kelly M.D. 24598 N48.1 A69.20 F11.20 Office Visit 01/21/2017 9:45a Main Office Cristian Romero D.O. 13648 A07.0 Office Visit 01/18/2017 9:45a Main Office Cristian Romero D.O. 74765 R35.0 R25.2 M54.2 G43.119 R53.83 Office Visit 01/05/2017 9:30a Main Office Chino Kelly M.D. 02208 F11.20 Z71.51 J31.0 R25.2 H10.213 Office Visit 12/04/2016 9:30a Main Office Chino Kelly M.D. 87083 E11.9 F11.20 R11.0 G43.009 Z71.51 Office Visit 2016 9:30a Main Office Chino Kelly M.D. 21545 F11.20 R11.0 E11.9 G47.33 G47.00 Office Visit 10/09/2016 9:30a Main Office Chino Kelly M.D. 02085 B37.42 F11.20 K21.9 R11.0 G43.009 E11.65 Office Visit 09/08/2016 3:45p Main Office Cristian Romero D.O. 25860 E11.65 F11.20 K21.9 R11.0 G43.009 Office Visit 08/05/2016 2:30p Main Office Chino Kelly M.D. 97062 F11.20 E11.65 K21.9 R11.0 G43.009 Z71.89 Z23 Office Visit 07/08/2016 1:30p Main Office Chino Kelly M.D. 18178 F11.20 G47.33 S92.355D K76.0 E66.9 K21.9 R11.0 E11.65 G43.009 Office Visit 06/03/2016 4:15p Main Office Chino Kelly M.D. 35547 E11.65 E66.9 F11.20 G47.33 S92.355D Office Visit 05/06/2016 11:15a Main Office Chino Kelly M.D. 30601 E11.65 R10.11 K76.0 E66.9 F11.20 M79.1 G47.33 Z68.32 Office Visit 04/01/2016 11:00a Main Office Chino Kelly M.D. 84048 Z23 F11.20 R10.11 K76.0 E11.65 E66.9 Z13.220 R53.83 M79.1 K21.9 Z23 Office Visit 03/02/2016 11:15a Main Office Chino Kelly M.D. 15912 F11.20 K76.0 R10.11 E66.9 E11.65 B35.1 R73.9 Office Visit 02/03/2016 11:30a Main Office Chino Kelly M.D. 76553 F11.20 R35.0 B35.1 M54.2 M25.50 Office Visit 01/20/2016 11:00a Main Office Chino Kelly M.D. 85139 F11.20 B35.1 M25.50 G43.009 Z51.81 Office Visit 12/30/2015 11:30a Main Office Chino Kelly M.D. 67989 F11.20 M54.2 M54.5 F41.9 R74.0 Office Visit 11/27/2015 12:55p Main Office Chino Kelly M.D. 87344 F11.20 M54.5 F41.9 R74.0 E80.7 G93.0 M54.2 Plan of Care 06/08/2018 - Chino Kelly M.D.F11.20 Opioid dependence, uncomplicatedFollow up:RTO 1mo recheck Suboxone.G43.009 Migraine w/o aura, not intractable, w/o status migrainosusComments:He declined trial of another triptan at this time, preferring to stick w/ high dose Ibuprofen and QSJbucdqsK23.9 Type 2 diabetes mellitus without complicationsComments:encouraged healthy diet and wt lossS92.515A Nondisp fx of proximal phalanx of left lesser toe(s), init
[2018-08-02 19:46] LABS: ABS Basophils 0 10^3/ul (0-0.2); ABS Eosinophils 0.1 10^3/ul (0-0.6); ABS Lymphocytes 1.5 10^3/ul (1.0-4.8); ABS Monocytes 0.5 10^3/ul (0-0.8); ABS Neutrophils 4.4 10^3/ul (1.5-7.7); ABS Nucleated RBC 0 10^3/ul; Eosinophil % 1.4 % (0-6); Hematocrit 38 % (42-52); Hemoglobin 13.2 g/dl (14.0-18.0); Lymphocyte % 23.3 % (25-47); Mean Corpuscular HGB Conc 35 g/dl (31-36); Mean Corpuscular Hemoglobin 31 pg (27-31); Mean Corpuscular Volume 89 fL (80-94); Mean Platelet Volume 8.3 um3 (7.4-10.4); Nucleated Red Blood Cells % 0; Platelet Count 115 10^3/ul (150-450); Red Blood Count 4.28 10^6/ul (4.00-5.40); Red Cell Distribution Width 14 % (10.5-15); White Blood Count 6.4 10^3/ul (3.5-10.8)
[2018-08-02 20:03] LABS: EGFR Non-African American 83.3 (>60)
[2018-08-02] MEDS ORDERED: predniSONE TAB* 20 MG PO ONE (20:25)
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
[2018-08-02 20:52] VITALS: BP 112/68
== END 2018-08-02 20:51 | disposition home or self-care (01) ==
LOC: ED 18:31
DX: M54.2 Cervicalgia (principal); Z91.030 Bee allergy status; Z87.891 Personal history of nicotine dependence; Z88.1 Allergy status to other antibiotic agents
CPT/HCPCS: 36415; 72125; 80053; 82550; 85025; 96374; 99282; J1885; J7512

== ENCOUNTER 2018-09-01 06:14 | Emergency (ER) | payer OTHER ==
[2018-09-01] MEDS ORDERED: Ketorolac INJ* 60 MG/2 ML VIAL IM ONE (07:28)
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
[2018-09-01 07:45] VITALS: BP 129/78
== END 2018-09-01 07:44 | disposition home or self-care (01) ==
LOC: ED 06:14
DX: E11.9 Type 2 diabetes mellitus without complications (principal); M54.2 Cervicalgia; Z87.891 Personal history of nicotine dependence
CPT/HCPCS: 96372; 99282; J1885

== ENCOUNTER → 2018-09-11 10:00 | Emergency (ER) | payer OTHER ==
[~2018-09-11 10:00] MED LIST: Ibuprofen TAB* 600 MG PO ONE
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
[2018-09-11 11:18] VITALS: BP 147/90
== END | disposition home or self-care (01) ==
LOC: ED 10:00
DX: M54.5 Low back pain (principal); G89.29 Other chronic pain; Z87.891 Personal history of nicotine dependence
CPT/HCPCS: 99283; A9270-GY

== ENCOUNTER → 2018-09-11 12:38 | Emergency (ER) | payer OTHER ==
[~2018-09-11 12:38] MED LIST changes: +Acetaminophen TAB* 325 MG PO ONE; -Ibuprofen TAB* 600 MG PO ONE
[2018-09-11 13:41] VITALS: BP 124/69
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
== END | disposition home or self-care (01) ==
LOC: ED 12:38
DX: R07.81 Pleurodynia (principal); R73.03 Prediabetes; Z87.891 Personal history of nicotine dependence
CPT/HCPCS: 99282; A9270-GY

== ENCOUNTER 2018-09-22 17:07 | Emergency (ER) | payer OTHER ==
[2018-09-22] MEDS ORDERED: Diazepam TAB(*) 5 MG PO ONE (18:05)
[2018-09-22] MEDS ORDERED: Ondansetron ODT TAB* 4 MG PO ONE (18:07)
[2018-09-22] MEDS: Ibuprofen TAB* 600 MG PO ONE ×2 (18:21→18:23)
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
[2018-09-22 18:33] LABS: ABS Basophils 0 10^3/ul (0-0.2); ABS Eosinophils 0.2 10^3/ul (0-0.6); ABS Lymphocytes 1.2 10^3/ul (1.0-4.8); ABS Monocytes 0.6 10^3/ul (0-0.8); ABS Neutrophils 6.9 10^3/ul (1.5-7.7); ABS Nucleated RBC 0 10^3/ul; Eosinophil % 1.8 % (0-6); Hematocrit 46 % (42-52); Hemoglobin 16.1 g/dl (14.0-18.0); Mean Corpuscular HGB Conc 35 g/dl (31-36); Mean Corpuscular Hemoglobin 31 pg (27-31); Mean Corpuscular Volume 89 fL (80-94); Mean Platelet Volume 8.1 um3 (7.4-10.4); Nucleated Red Blood Cells % 0.1; Platelet Count 136 10^3/ul (150-450); Red Blood Count 5.19 10^6/ul (4.00-5.40); Red Cell Distribution Width 14 % (10.5-15); White Blood Count 8.9 10^3/ul (3.5-10.8)
[2018-09-22 18:42] LABS: EGFR Non-African American 75.8 (>60)
[2018-09-22] MEDS ORDERED: Ketorolac TAB * 10 MG TAB PO ONE (18:50)
[2018-09-22 19:51] VITALS: BP 98/68
--- NOTE | 2018-09-23 07:17 | RAD ---
INDICATION: Cough. COMPARISON: Comparison is made to prior chest x-ray study from February 18, 2018. TECHNIQUE: Dual-energy PA and lateral views of the chest were obtained. FINDINGS: The heart is within normal limits in size. Mediastinal and hilar contours appear within normal limits. The lungs are clear. No pleural effusion is present. IMPRESSION: NO EVIDENCE FOR ACTIVE CARDIOPULMONARY DISEASE. R1NF
== END 2018-09-22 19:50 | disposition home or self-care (01) ==
LOC: ED 17:07
DX: J11.1 Influenza due to unidentified influenza virus with other respiratory manifestations (principal); M54.2 Cervicalgia; Z88.1 Allergy status to other antibiotic agents; Z91.030 Bee allergy status; Z87.891 Personal history of nicotine dependence
CPT/HCPCS: 36415; 71046; 80053; 83605; 85025; 86140; 87651; 99282; A9270-GY

== ENCOUNTER → 2018-11-25 11:46 | Emergency (ER) | payer OTHER ==
[~2018-11-25 11:46] MED LIST changes: -Acetaminophen TAB* 325 MG PO ONE; +Ketorolac INJ* 60 MG/2 ML VIAL IM ONE
[2018-11-25 15:00] VITALS: BP 113/71
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
== END | disposition home or self-care (01) ==
LOC: ED 11:46
DX: M54.12 Radiculopathy, cervical region (principal); M54.2 Cervicalgia; Z87.891 Personal history of nicotine dependence
CPT/HCPCS: 96372; 99282; J1885

== ENCOUNTER 2019-01-05 06:01 | Emergency (ER) | payer OTHER ==
[2019-01-05] MEDS ORDERED: Metoclopramide IV* 5 MG/ML 2 ML VIAL IV ONE (06:17)
[2019-01-05] MEDS ORDERED: NS 0.9% 1000 ML** 1,000 ML IV ONE ×2 (06:17→07:52)
[2019-01-05] MEDS ORDERED: diPHENhydraMINE PO* 25 MG PO ONE (06:19)
--- OUTSIDE RECORDS SUMMARY | 2019-01-05 06:24 | XMS REPORT | Continuity of Care Document ---
:1960 External Reference #:[id number] Author Name Chino Kelly M.D. Address [address] [facility] [address] [place] [address] Care Team Providers Name Role Phone HCP given Primary Care Physician Unavailable Payers Type Date Identification Numbers Payment Provider Subscriber Effective: Policy Number: [id number] [employer] (FERCHO Saenz 2014 MGD) PayID: [id number] [address] [address] [place] [address] Advance Directives Description No Information Available Problems Date Description Provider Status Onset: 01/20/2016 [...] Obesity Social History Type Date Description Comments Sex Unknown Education Highest level completed, 11th grade Marital Status Lives With Alone Occupation Self Employed taxi service Tobacco Use Start: Unknown End: Former Cigarette Smoker quit ~age 32 Unknown Recreational Drug Use 07/08/2016 Current Drug User MJ Recreational Drug Use 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 onset of neck pain, then up to 1 tablet every 8 hours Venlafaxine HCL 12/20/ Hx Caps ER 37.5mg 7caps 1 by mouth F34.1 Silcoff , ER 2018 - 24HR every day Chino 12/27/ for 1 week M.D. 2019 then change to 75mg dose Venlafaxine HCL 12/20/ Active Caps ER 75mg 30cap 1 by mouth F34.1 Silcoff, ER 2019 24HR s every day Chino (after M.D. taking 37.5mg dose for 1 week); for mood Cyclobenzaprine 09/22/ Active Tablets 10mg take 1 Unknown HCL 2018 tablet by mouth three times a day if needed for pain PT For Chronic 08/22/ Active evaluate M54.2 Leticia Neck Pain 2017 and treatChino, instruct in M.Milagro hep, modalities as needed Ondansetron 08/08/ Active Tablets 4mg 15tab 1 by mouth R11.0 Leticia, 2018 Dispers s every 4 Chino, hours as M.D. needed for nausea/vomi ting R11.2 Ibuprofen 04/09/2018 Active Tablets 800mg 90tabs 1 cap by mouth M25.50 Leticia, three times a Rosi Magana day as needed for pain M54.2 CBD Oil Pills 04/08/2018 Active prn use Unknown From [facility] Multivitamin 05/02/2017 Active Tablets 1 by mouth Unknown Adult every day B Complex 02/25/2017 Active Tablets 1 by mouth Unknown once daily prn for muscle cramps Freestyle Lite 05/06/2016 Active Strips 100u use as E11. Leticia Test nits directed for 65 Chino measuring Rosi blood sugar 1-2x/day and as needed Freestyle Lancets 05/06/2016 Active Misc 100u use as E11. Silcoff, nits directed once 65 [place], a day for M.D. blood sugar monitoring Omeprazole 04/01/2016 Active Capsules 20mg 30ca take one K21. Silcoff, ps capsule by 9 Chino, mouth up to M.D. once a day, as needed for acid reflux Suboxone 12/19/2015 Active Film 8-2mg 45un 3/4 film F11. Silcoff, its 2x/day; for 20 , chronic pain M.D. and opiate dependence; suboxone prescriber# [id number] M54.2 Duloxetine HCL 12/[address] Douglas 30mg 7caps 1 by mouth every F34. Silcoff, day for 1 week 1 Chino, - then change to M.D. 12/20 60mg dose; for mood Duloxetine HCL 12/[address] Douglas 60mg 30cap 1 by mouth every F34. Silcoff, s day (starting 1 Chino, - after 1 week on M.D. 12/20 30mg dose); for mood and chronic pain Simvastatin 09/09 Hx Tablets 20mg 90tab take one tablet E11. Silcoff, s by mouth every 9 Chino, - day to lower M.D. 11/15 cholesterol Naproxen 08/08 Hx Tablets 500mg 60tab take one tablet M54. Silcoff, s by mouth twice a 2 Chino, - day as needed M.D. 12/20 for neck pain; take with food; do not use on same day as Ibuprofen Methylprednisolone 08/02 Hx TBPK 4mg take as directed on pack - 09/08 Sumatriptan Succinate 05/09 Hx Tablets 50mg 6tabs 1 by mouth at G43. Silcoff, onset of 009 [place]ino, - migraine; march M.D. 06/08 repeat once after 2 hours if needed; max 3x/wk Cyclobenzaprine HCL 05/09 Hx Tablets 10mg 15tab 1 by mouth three M54. Silcoff, s times a day as 2 Chino, - needed as needed M.D. 07/10 for headache /2017 with neck pain. Chlorhexidine Gluconate 03/13 Hx Solution 0.12% Rinse with 11/30 ounce by mouth - for 30 seconds 04/08 then spit out. use twice Amoxicillin 03/13 Hx Capsules 500mg take 1 capsule by mouth three - times a day 04/08 Ketorolac Tromethamine 02/19 Hx Tablets 10mg 15tab take 1 tablet by Silco, s mouth every 6 Chino, - hours if needed M.D. 03/19 for pain; take for no more than 5 days Naproxen 11/03 Hx Tablets 500mg 60tab take one tablet M54. Silconorberto, s by mouth twice a 2 Chino, - day as needed M.D. 04/09 for neck pain, take with food Rosuvastatin Calcium 11/03 Hx Tablets 5mg 30tab take one tablet E11. Silconorberto s by mouth every 9 Chino, - day to lower M.D. 06/10 choloesterol and reduce risk of heart disease PT For Neck Pain 09/08 Hx please evaluate M54. Leticia, and treat, 2 [place]ino, - instruct in hep, M.D. 10/08 modalities prn. Naproxen Sodium 05/02 Hx Tablets 220mg as directed as needed - 11/02 Nystatin 02/02 Hx Cream [id number] 30uni apply to Silco 0Unit ts affected area(s) Chino, - /GM on penis three M.D. 02/25 times a day as needed Nystatin-Triamcinolone 01/29 Hx Cream 95268 30gm apply to N48. 0-0.1 affected areas 1 [place]ino, - Unit/ on penis 3 times M.D. 30 GM-% a day as needed until clear Lidocaine 01/26 Hx Ointment 5% 35.44 apply to the A07. jens 0gm affected area 0 Cristian, D.O. - three times a 01/29 day for pain Fluconazole 01/21 Hx Tablets 150mg 1tabs 1 by mouth once A07. Nick 0 Cristian, D.O. - 01/22 Lidocaine HCL 01/21 Hx Gel 2% 30ml apply to head of A07. Nicole penis 4 times a 0 Cristian, D.O. - day as needed 01/26 for pain Clindamycin Phosphate 01/21 Hx Lotion 1% 180ml apply 1 A07. Nicole application 0 Cristian, D.O. - topically to 01/26 affected area times per day Doxycycline Hyclate 01/[address] 100mg 56tab take 1 tablet by A69. Nick s mouth 2 times 20 Cristian, D.O. - per day for 28 01/30 days for lyme disease Cyclobenzaprine HCL 01/18 Hx Tablets 10mg 30tab 1 by mouth three M54. Nick s times a day as 2 Cristian, D.O. - needed as needed 01/28 for muscle spasms. Fluticasone Propionate 01/05 Hx Suspension 50mcg 16uni 2 sprays into J31. Tessaconorberto /Act ts each nostril 0 [place]ino, - once daily for M.D. 01/28 nasal congestion; stop using all other nasal sprays within 1 week of starting this Simvastatin 11/03 Hx Tablets 20mg 30tab take one tablet E11. Shady s by mouth every 65 [place]ino, - day to lower M.D. 01/18 cholesterol E11.9 Nystatin 10/09/2016 - Hx Cream [id number]/GM 30units apply to B37.42 [facility] [place] affected [place], area(s) on M.D. penis [...] up M25.50 Silcoff, 01/20/2016 to every 8 Israel MaganaDClayton hours for pain M25.50 Sumatriptan 11/04/2015 - [...] CPT Code Status Date Vaccine Lot # [id number] Given 09/09/2018 Influenza Virus Vaccine, Quadrivalent, Split, [id number] Preservative Free [id number] Given 08/10/2017 Influenza Virus Vaccine, Quadrivalent, Split, [id number] Preservative Free [id number] Given 05/26/2017 Adacel or Boostrix, [id number] Given 08/05/2016 Influenza Virus Vaccine, Quadrivalent, Split, [id number] Preservative Free [id number] Given 04/01/2016 Adacel or Boostrix, TDaP [id number] Vital Signs Date Vital Result Comment 12/20/2018 9:31am BP Systolic 118 mmHg BP Diastolic 80 mmHg Weight 226.00 lb 11/16/2018 9:14am BP Systolic 134 mmHg BP Diastolic 70 mmHg Height 72 inches 6'0" Weight 229.00 lb BMI (Body Mass Index) 31.1 kg/m2 10/17/2018 8:42am BP Systolic 110 mmHg BP Diastolic 74 mmHg Weight 234.00 lb w/boots 09/09/2018 12:02pm BP Systolic 122 mmHg BP Diastolic 76 mmHg Weight 234.00 lb 08/08/2018 11:58am BP Systolic 140 mmHg BP Diastolic 78 mmHg Weight 229.00 lb 07/11/2018 5:26pm BP Systolic 110 mmHg BP Diastolic 80 mmHg Weight 234.00 lb with sandals 06/08/2018 12:04pm BP Systolic 116 mmHg BP Diastolic 82 mmHg Weight 240.00 lb with sandals 05/09/2018 9:45am BP Systolic 112 mmHg BP Diastolic 78 mmHg Height 72 inches 6'0" with sandals Weight 243.00 lb with sandals BMI (Body Mass Index) 33.0 kg/m2 04/09/2018 9:33am BP Systolic 122 mmHg BP Diastolic 70 mmHg 03/14/2018 10:25am BP Systolic 124 mmHg BP Diastolic 80 mmHg Weight 246.00 lb with work boots 02/07/2018 10:24am BP Systolic 128 mmHg BP Diastolic 70 mmHg Weight 238.00 lb 01/07/2018 2:07pm BP Systolic 130 mmHg BP Diastolic 78 mmHg Weight 243.00 lb 12/06/2017 12:07pm BP Systolic 126 mmHg BP Diastolic 68 mmHg 2017 2:34pm BP Systolic 120 mmHg BP Diastolic 70 mmHg Height 73 inches 6'1" w/shoes Weight 240.00 lb w/shoes BMI (Body Mass Index) 31.7 kg/m2 10/09/2017 9:57am BP Systolic 122 mmHg BP Diastolic 80 mmHg Weight 235.00 lb with shoes 09/08/2017 10:33am BP Systolic 126 mmHg BP Diastolic 68 mmHg 08/10/2017 10:19am BP Systolic 116 mmHg BP Diastolic 78 mmHg Weight 230.00 lb 07/07/2017 11:42am BP Systolic 110 mmHg BP Diastolic 70 mmHg Weight 232.00 lb 06/04/2017 10:53am BP Systolic 118 mmHg BP Diastolic 72 mmHg Weight 232.00 lb w/sandals 05/03/2017 11:26am BP Systolic 114 mmHg BP Diastolic 70 mmHg Height 72 inches 6'0" Weight 238.00 lb BMI (Body Mass Index) 32.3 kg/m2 03/30/2017 10:11am BP Systolic 116 mmHg BP Diastolic 76 mmHg Weight 245.00 lb 02/26/2017 10:07am BP Systolic 110 mmHg BP Diastolic 70 mmHg Weight 247.00 lb with sneakers 01/29/2017 10:51am BP Systolic 132 mmHg BP Diastolic 78 mmHg Weight 247.00 lb with shoes 01/21/2017 9:49am BP Systolic 112 mmHg BP Diastolic 70 mmHg Weight 247.00 lb 01/18/2017 9:51am BP Systolic 128 mmHg BP Diastolic 88 mmHg Weight 254.00 lb 01/05/2017 9:15am BP Systolic 122 mmHg BP Diastolic 80 mmHg Weight 253.00 lb with shoes 12/04/2016 9:43am BP Systolic 138 mmHg BP Diastolic 84 mmHg 2016 9:42am BP Systolic 116 mmHg BP Diastolic 64 mmHg Height 73 inches 6'1" w/shoes Weight 252.00 lb w/shoes BMI (Body Mass Index) 33.2 kg/m2 10/09/2016 9:39am BP Systolic 130 mmHg BP Diastolic 88 mmHg Weight 252.00 lb with shoes 09/08/2016 4:16pm BP Systolic 109 mmHg BP Diastolic 64 mmHg Heart Rate 86 /min Weight 248.00 lb 08/05/2016 2:24pm BP Systolic 108 mmHg BP Diastolic 68 mmHg 07/08/2016 1:36pm BP Systolic 130 mmHg BP Diastolic 80 mmHg Weight 251.00 lb w/shoes 06/03/2016 3:59pm BP Systolic 124 mmHg BP Diastolic 76 mmHg 05/06/2016 12:04pm BP Systolic 108 mmHg BP Diastolic 70 mmHg Weight 248.00 lb w/shoes 04/01/2016 12:06pm BP Systolic 122 mmHg BP Diastolic 78 mmHg Height 72.25 inches 6'0.25" Weight 249.00 lb BMI (Body Mass Index) 33.5 kg/m2 03/02/2016 12:20pm BP Systolic 120 mmHg BP Diastolic 76 mmHg Weight 255.00 lb w/shoes 02/03/2016 11:40am BP Systolic 120 mmHg BP Diastolic 74 mmHg 01/20/2016 11:21am BP Systolic 120 mmHg BP Diastolic 80 mmHg Weight 251.00 lb w/shoes 12/30/2015 12:09pm BP Systolic 110 mmHg BP Diastolic 62 mmHg Weight 248.00 lb w/shoes 11/27/2015 1:01pm BP Systolic 138 mmHg BP Diastolic 82 mmHg Heart Rate 80 /min reg Respiratory Rate 14 /min not laboured Height 72.75 inches 6'0.75" Weight 241.00 lb BMI (Body Mass Index) 32.0 kg/m2 Results Test Date Facility Test Result H/L Range Note Laboratory test 11/16/2018 In House Hemoglobin A1c 6.4 finding Laboratory test 09/22/2018 [facility] Rapid Strep Negative Negative 1 finding [phone] Molecular Rapid Influenza A 09/22/2018 [facility] Influenza A NEGATIVE Negative 2 & B Molecular [phone] Molecular Influenza B Molecular NEGATIVE Negative CBC Auto Diff 09/22/2018 [facility] White Blood Count 8.9 10^3/uL N 3.5-10.8 [phone] Red Blood Count 5.19 10^6/uL N 4.00-5.40 Hemoglobin 16.1 g/dL N 14.0-18.0 Hematocrit 46 % N 42-52 Mean Corpuscular Volume 89 fL N 80-94 Mean Corpuscular Hemoglobin 31 pg N 27-31 Mean Corpuscular HGB Conc 35 g/dL N 31-36 Red Cell Distribution Width 14 % N 10.5-15 Platelet Count 136 10^3/uL Low 150-450 Mean Platelet Volume 8.1 um3 N 7.4-10.4 Abs Neutrophils 6.9 10^3/uL N 1.5-7.7 Abs Lymphocytes 1.2 10^3/uL N 1.0-4.8 Abs Monocytes 0.6 10^3/uL N 0-0.8 Abs Eosinophils 0.2 10^3/uL N 0-0.6 Abs Basophils 0 10^3/uL N 0-0.2 Abs Nucleated RBC 0 10^3/uL Granulocyte % 77.5 % N 38-83 Lymphocyte % 13.0 % Low 25-47 Monocyte % 7.2 % High 0-7 Eosinophil % 1.8 % N 0-6 Basophil % 0.5 % N 0-2 Nucleated Red Blood Cells % 0.1 Laboratory test finding 09/22/2018 [facility] Lactic Acid 1.4 mmol/L N 0.5-2.0 3 [phone] Comp Metabolic Panel 09/22/2018 [facility] Sodium 138 mmol/L N 135- 145 [phone] Potassium 4.6 mmol/L N 3.5-5.0 Chloride 103 mmol/L N 101-111 Co2 Carbon Dioxide 28 mmol/L N 22-32 Anion Gap 7 mmol/L N 2-11 Glucose 123 mg/dL High 70-100 Blood Urea Nitrogen 17 mg/dL N 6-24 Creatinine 1.02 mg/dL N 0.67-1.17 BUN/Creatinine Ratio 16.7 N 8-20 Calcium 10.2 mg/dL N 8.6-10.3 Total Protein 7.3 g/dL N 6.4-8.9 Albumin 4.7 g/dL N 3.2-5.2 Globulin 2.6 g/dL N 2-4 Albumin/Globulin Ratio 1.8 N 1-3 Total Bilirubin 2.10 mg/dL High 0.2-1.0 Alkaline Phosphatase 86 U/L N 34-104 Alt 67 U/L High 7-52 Ast 42 U/L High 13-39 Egfr Non- 75.8 >60 Egfr 91.8 >60 4 Laboratory test 09/22/2018 [facility] C Reactive 1.37 mg/L N <8.01 finding [phone] Protein Laboratory test 09/22/2018 [facility] Rapid Strep A SEE RESULT 5 finding [phone] Request BELOW Rapid Influenza A B Antigen SEE RESULT BELOW 6 Urine Microalbumin 09/09/2018 [facility] Ur Microalbumin (mg/L) < 15.0 7 Random [phone] Urine Creatinine 119.44 mg/dL Urine Microalbumin/Creatinine TNP <31 8 Laboratory test finding 08/08/2018 In House Hemoglobin A1c 6.3 Urine Drug Screen Inhouse 08/08/2018 In House Ua Cocaine - Ua Opiates - Ua Amphetamines - Urine Methanphetamines - Urine Benzodiazepines QN [place] - Urine Oxycodone QL - Laboratory test 08/02/2018 [facility] Creatine 164 U/L N 10-223 finding [phone] Kinase(CK) Comp Metabolic 08/02/2018 [facility] Sodium 140 mmol/L N 135-145 Panel [phone] Potassium 3.8 mmol/L N 3.5-5.0 Chloride 107 mmol/L N 101-111 Co2 Carbon Dioxide 27 mmol/L N 22-32 Anion Gap 6 mmol/L N 2-11 Glucose 151 mg/dL High 70-100 Blood Urea Nitrogen 14 mg/dL N 6-24 Creatinine 0.94 mg/dL N 0.67-1.17 BUN/Creatinine Ratio 14.9 N 8-20 Calcium 9.2 mg/dL N 8.6-10.3 Total Protein 6.1 g/dL Low 6.4-8.9 Albumin 4.0 g/dL N 3.2-5.2 Globulin 2.1 g/dL N 2-4 Albumin/Globulin Ratio 1.9 N 1-3 Total Bilirubin 1.00 mg/dL N 0.2-1.0 Alkaline Phosphatase 79 U/L N 34-104 Alt 44 U/L N 7-52 Ast 30 U/L N 13-39 Egfr Non- 83.3 >60 Egfr 100.8 >60 9 CBC Auto Diff 08/02/2018 [facility] White Blood Count 6.4 10^3/uL N 3.5-10.8 [phone] Red Blood Count 4.28 10^6/uL N 4.00-5.40 Hemoglobin 13.2 g/dL Low 14.0-18.0 Hematocrit 38 % Low 42-52 Mean Corpuscular Volume 89 fL N 80-94 Mean Corpuscular Hemoglobin 31 pg N 27-31 Mean Corpuscular HGB Conc 35 g/dL N 31-36 Red Cell Distribution Width 14 % N 10.5-15 Platelet Count 115 10^3/uL Low 150-450 Mean Platelet Volume 8.3 um3 N 7.4-10.4 Abs Neutrophils 4.4 10^3/uL N 1.5-7.7 Abs Lymphocytes 1.5 10^3/uL N 1.0-4.8 Abs Monocytes 0.5 10^3/uL N 0-0.8 Abs Eosinophils 0.1 10^3/uL N 0-0.6 Abs Basophils 0 10^3/uL N 0-0.2 Abs Nucleated RBC 0 10^3/uL Granulocyte % 67.6 % N 38-83 Lymphocyte % 23.3 % Low 25-47 Monocyte % 7.0 % N 0-7 Eosinophil % 1.4 % N 0-6 Basophil % 0.7 % N 0-2 Nucleated Red Blood Cells % 0 CBC Auto Diff 05/28/2018 [facility] White Blood Count 7.4 10^3/uL N 3.5-10.8 [phone] Red Blood Count 4.80 10^6/uL N 4.00-5.40 Hemoglobin 14.6 g/dL N 14.0-18.0 Hematocrit 43 % N 42-52 Mean Corpuscular Volume 89 fL N 80-94 Mean Corpuscular Hemoglobin 30 pg N 27-31 Mean Corpuscular HGB Conc 34 g/dL N 31-36 Red Cell Distribution Width 14 % N 10.5-15 Platelet Count 128 10^3/uL Low 150-450 Mean Platelet Volume 8.3 um3 N 7.4-10.4 Abs Neutrophils 6.1 10^3/uL N 1.5-7.7 Abs Lymphocytes 0.7 10^3/uL Low 1.0-4.8 Abs Monocytes 0.5 10^3/uL N 0-0.8 Abs Eosinophils 0.1 10^3/uL N 0-0.6 Abs Basophils 0 10^3/uL N 0-0.2 Abs Nucleated RBC 0 10^3/uL Granulocyte % 82.5 % N 38-83 Lymphocyte % 10.2 % Low 25-47 Monocyte % 6.2 % N 0-7 Eosinophil % 0.8 % N 0-6 Basophil % 0.3 % N 0-2 Nucleated Red Blood Cells % 0 Inr/Protime 05/28/2018 [facility] Inr 1.07 High 0.77-1.02 [phone] Laboratory test 05/28/2018 [facility] Partial 29.1 seconds N 26.0- 36.3 finding [phone] Thrombo Time PTT Lactic Acid 1.7 mmol/L N 0.5-2.0 10 Comp Metabolic Panel 05/28/2018 [facility] Sodium 141 mmol/L N 135- 145 [phone] Potassium 3.9 mmol/L N 3.5-5.0 Chloride 107 mmol/L N 101-111 Co2 Carbon Dioxide 25 mmol/L N 22-32 Anion Gap 9 mmol/L N 2-11 Glucose 181 mg/dL High 70-100 Blood Urea Nitrogen 19 mg/dL N 6-24 Creatinine 1.03 mg/dL N 0.67-1.17 BUN/Creatinine Ratio 18.4 N 8-20 Calcium 9.5 mg/dL N 8.6-10.3 Total Protein 6.9 g/dL N 6.4-8.9 Albumin 4.3 g/dL N 3.2-5.2 Globulin 2.6 g/dL N 2-4 Albumin/Globulin Ratio 1.7 N 1-3 Total Bilirubin 1.80 mg/dL High 0.2-1.0 Alkaline Phosphatase 71 U/L N 34-104 Alt 40 U/L N 7-52 Ast 35 U/L N 13-39 Egfr Non- 75.0 >60 Egfr 90.7 >60 11 Laboratory test finding 05/28/2018 [facility] Lipase 150 U/L High 11.0-82.0 [phone] C Reactive Protein 10.78 mg/L High <8.01 Laboratory test 05/28/2018 [facility] Point of Care 189 mg/dL High 70 -100 12 finding [phone] Glucose Lipid Profile 05/09/2018 [facility] Triglycerides 155 mg/dL 13 (Trig/Chol/HDL) [phone] Cholesterol 129 mg/dL 14 HDL Cholesterol 42.8 mg/dL 15 LDL Cholesterol 55 mg/dL 16 Laboratory test finding 05/09/2018 [facility] Alt 58 U/L High 7-52 17 [phone] Laboratory test finding 05/09/2018 In House Hemoglobin A1c 6.9 Urine Drug Screen 04/09/2018 In House Ua Cocaine - Inhouse Ua Opiates - Ua Amphetamines - Urine Methanphetamines - Urine Benzodiazepines QN [place] + Urine Oxycodone QL - Laboratory test 02/18/2018 [facility] Troponin-I (TnI) 0.00 ng/mL < 0.04 finding [phone] Laboratory test 02/18/2018 [facility] Lactic Acid 1.2 mmol/L N 0.5- 2.0 18 finding [phone] Comp Metabolic 02/18/2018 [facility] Sodium 137 mmol/L N 133-145 Panel [phone] Potassium 3.9 mmol/L N 3.5-5.0 Chloride 102 mmol/L N 101-111 Co2 Carbon Dioxide 30 mmol/L N 22-32 Anion Gap 5 mmol/L N 2-11 Glucose 118 mg/dL High 70-100 Blood Urea Nitrogen 14 mg/dL N 6-24 Creatinine 0.91 mg/dL N 0.67-1.17 BUN/Creatinine Ratio 15.4 N 8-20 Calcium 9.9 mg/dL N 8.6-10.3 Total Protein 7.2 g/dL N 6.4-8.9 Albumin 4.5 g/dL N 3.2-5.2 Globulin 2.7 g/dL N 2-4 Albumin/Globulin Ratio 1.7 N 1-3 Total Bilirubin 1.20 mg/dL High 0.2-1.0 Alkaline Phosphatase 91 U/L N 34-104 Alt 57 U/L High 7-52 Ast 44 U/L High 13-39 Egfr Non- 86.5 >60 Egfr 111.2 >60 19 Laboratory test 02/18/2018 [facility] Troponin-I (TnI) 0.00 ng/mL < 0.04 finding [phone] Laboratory test 01/07/2018 In House Hemoglobin A1c 6.2 finding Lipid Profile 2017 [facility] Triglycerides 126 mg/dL 20 (Trig/Chol/HDL) [phone] Cholesterol 145 mg/dL 21 HDL Cholesterol 42.1 mg/dL 22 LDL Cholesterol 78 mg/dL 23 Urine Microalbumin 2017 [facility] Ur Microalbumin < 15.0 mg/L Random [phone] (mg/L) Urine Creatinine 256.40 mg/dL Urine Microalbumin/Creatinine TNP ug/mg <31 24 Urine Drug Screen Inhouse 09/08/2017 In House Ua Cocaine - Ua Opiates - Ua Amphetamines - Urine Methanphetamines - Urine Benzodiazepines QN [place] - Urine Oxycodone QL - Laboratory test 09/08/2017 In House Hemoglobin A1c 5.8 finding Laboratory test 06/04/2017 In House Hemoglobin A1c 5.9 finding Laboratory test 02/26/2017 In House Hemoglobin A1c 6.8 finding Comp Metabolic Panel 01/21/2017 [facility] Sodium 134 mmol/L N 133- 145 [phone] Potassium 4.0 mmol/L N 3.5-5.0 Chloride 100 mmol/L Low 101-111 Co2 Carbon Dioxide 28 mmol/L N 22-32 Anion Gap 6 mmol/L N 2-11 Glucose 169 mg/dL High 70-100 Blood Urea Nitrogen 18 mg/dL N 6-24 Creatinine 0.88 mg/dL N 0.67-1.17 BUN/Creatinine Ratio 20.5 High 8-20 Calcium 10.0 mg/dL N 8.6-10.3 Total Protein 6.9 g/dL N 6.4-8.9 Albumin 4.5 g/dL N 3.2-5.2 Globulin 2.4 g/dL N 2-4 Albumin/Globulin Ratio 1.9 N 1-3 Total Bilirubin 1.60 mg/dL High 0.2-1.0 Alkaline Phosphatase 90 U/L N 34-104 Alt 62 U/L High 7-52 Ast 55 U/L High 13-39 Egfr Non- 90.2 N >60 Egfr 116.1 N >60 25 Laboratory test 01/21/2017 [facility] Creatine 299 U/L High 10-223 finding [phone] Kinase(CK) Urine Micro 01/18/2017 In House Ua WBC occ 26 Inhouse Ua RBC - Ua Casts 1 Ua Epi occ Ua Other - Ua Glucose - Ua Bilirubin - Ua Ketones - Ua Specific [place] 1.005 Ua Blood - Ua PH (omitted) Ua Protein - Ua Urobilinogen - Ua Nitrite - Ua Leukocytes - Culture Urine 01/18/2017 In House Colonies negative Inhouse CBC Auto Diff 01/18/2017 [facility] White Blood Count 7.4 10^3/uL N 3.5-10.8 [phone] Red Blood Count 4.60 10^6/uL N 4.0-5.4 Hemoglobin 14.2 g/dL N 14.0-18.0 Hematocrit 41 % Low 42-52 Mean Corpuscular Volume 89 fL N 80-94 Mean Corpuscular Hemoglobin 31 pg N 27-31 Mean Corpuscular HGB Conc 35 g/dL N 31-36 Red Cell Distribution Width 14 % N 10.5-15 Platelet Count 110 10^3/uL Low 150-450 Mean Platelet Volume 9 um3 N 7.4-10.4 Abs Neutrophils 4.6 10^3/uL N 1.5-7.7 Abs Lymphocytes 2.0 10^3/uL N 1.0-4.8 Abs Monocytes 0.5 10^3/uL N 0-0.8 Abs Eosinophils 0.1 10^3/uL N 0-0.6 Abs Basophils 0.1 10^3/uL N 0-0.2 Abs Nucleated RBC 0 10^3/uL N Granulocyte % 62.8 % N 38-83 Lymphocyte % 27.2 % N 25-47 Monocyte % 7.4 % N 1-9 Eosinophil % 1.9 % N 0-6 Basophil % 0.7 % N 0-2 Nucleated Red Blood Cells % 0 N Comp Metabolic Panel 01/18/2017 [facility] Sodium 135 mmol/L N 133- 145 [phone] Potassium 3.9 mmol/L N 3.5-5.0 Chloride 101 mmol/L N 101-111 Co2 Carbon Dioxide 29 mmol/L N 22-32 Anion Gap 5 mmol/L N 2-11 Glucose 99 mg/dL N 70-100 Blood Urea Nitrogen 14 mg/dL N 6-24 Creatinine 0.97 mg/dL N 0.67-1.17 BUN/Creatinine Ratio 14.4 N 8-20 Calcium 9.7 mg/dL N 8.6-10.3 Total Protein 6.5 g/dL N 6.4-8.9 Albumin 4.2 g/dL N 3.2-5.2 Globulin 2.3 g/dL N 2-4 Albumin/Globulin Ratio 1.8 N 1-3 Total Bilirubin 1.70 mg/dL High 0.2-1.0 Alkaline Phosphatase 66 U/L N 34-104 Alt 60 U/L High 7-52 Ast 59 U/L High 13-39 Egfr Non- 80.7 N >60 Egfr 103.7 N >60 27 Laboratory test finding 01/18/2017 [facility] Magnesium 1.9 mg/dL N 1.9-2.7 [phone] TSH (Thyroid Stim Horm) 3.36 mcIU/mL N 0.34-5.60 Vitamin D Total 25(Oh) 24.3 ng/mL Low 30-50 Vitamin B12 882 pg/mL N 180-914 28 Lyme Western Blot 01/18/2017 [facility] Lyme Disease IgG Negative N Negative [phone] Ab WB Lyme Disease IgG Bands Present p41, p23, kDa N Lyme Disease IgM Ab WB Positive N Negative Lyme Disease IgM Bands Present p41, p23, kDa N Lyme Disease Interpretation See Comment N 29 Laboratory test 01/18/2017 [facility] Folic Acid > 20.00 ng/mL N > 3.99 finding [phone] (Folate) C Reactive Protein 1.06 mg/L N < 5.00 30 Creatine Kinase(CK) 497 U/L High 10-223 Erythrocyte Sed Rate 6 mm/Hr N 0-20 Phosphorus 4.7 mg/dL N 2.5-5.0 Uric Acid 5.6 mg/dL N 4.4-7.6 Tick-Borne Panel PCR 01/18/2017 [facility] Babesia microti Negative N Negative Blood [phone] PCR Babesia ducani Negative N Negative Babesia divergens/Mo-1 Negative N Negative 31 Anaplasma phagocytophilum Negative N Negative Ehrlichia chaffeensis Negative N Negative Ehrlichia ewingii/canis Negative N Negative Ehrlichia muris-like Negative N Negative 32 B. miyamotoi PCR, B Negative N Negative 33 Rapid Influenza A 01/17/2017 [facility] Influenza A NEGATIVE N Negative 34 & B Molecular [phone] Molecular Influenza B Molecular NEGATIVE N Negative Laboratory 01/17/2017 [facility] Point of Care 131 mg/dL High 74-106 35 test finding [phone] Glucose Laboratory 01/15/2017 [facility] Urine Culture And SEE RESULT 36, 37 test finding [phone] Sensitivities BELOW Laboratory 01/15/2017 [facility] Point of Care 176 mg/dL High 74-106 38 test finding [phone] Glucose Laboratory 12/04/2016 In House Hemoglobin A1c 6.5 test finding Laboratory 11/21/2016 [facility] Rapid Influenza A SEE RESULT 39 test finding [phone] B Antigen BELOW Rapid Strep A Request SEE RESULT BELOW 40 Laboratory test 11/21/2016 [facility] Rapid Strep Negative N Negative 41 finding [phone] Molecular Rapid Influenza A 11/21/2016 [facility] Influenza A NEGATIVE N Negative 42 & B Molecular [phone] Molecular Influenza B Molecular NEGATIVE N Negative CBC Auto Diff 10/19/2016 [facility] White Blood Count 6.1 10^3/uL N 3.5-10.8 [phone] Red Blood Count 4.78 10^6/uL N 4.0-5.4 Hemoglobin 14.8 g/dL N 14.0-18.0 Hematocrit 43 % N 42-52 Mean Corpuscular Volume 90 fL N 80-94 Mean Corpuscular Hemoglobin 31 pg N 27-31 Mean Corpuscular HGB Conc 35 g/dL N 31-36 Red Cell Distribution Width 13 % N 10.5-15 Platelet Count 112 10^3/uL Low 150-450 Mean Platelet Volume 9 um3 N 7.4-10.4 Abs Neutrophils 4.0 10^3/uL N 1.5-7.7 Abs Lymphocytes 1.6 10^3/uL N 1.0-4.8 Abs Monocytes 0.4 10^3/uL N 0-0.8 Abs Eosinophils 0.1 10^3/uL N 0-0.6 Abs Basophils 0 10^3/uL N 0-0.2 Abs Nucleated RBC 0 10^3/uL N Granulocyte % 64.5 % N 38-83 Lymphocyte % 26.3 % N 25-47 Monocyte % 6.6 % N 1-9 Eosinophil % 2.0 % N 0-6 Basophil % 0.6 % N 0-2 Nucleated Red Blood Cells % 0 N Comp Metabolic Panel 10/19/2016 [facility] Sodium 136 mmol/L N 133- 145 [phone] Potassium 4.0 mmol/L N 3.5-5.0 Chloride 104 mmol/L N 101-111 Co2 Carbon Dioxide 25 mmol/L N 22-32 Anion Gap 7 mmol/L N 2-11 Glucose 129 mg/dL High 70-100 Blood Urea Nitrogen 15 mg/dL N 6-24 Creatinine 0.85 mg/dL N 0.67-1.17 BUN/Creatinine Ratio 17.6 N 8-20 Calcium 9.7 mg/dL N 8.6-10.3 Total Protein 6.9 g/dL N 6.4-8.9 Albumin 4.5 g/dL N 3.2-5.2 Globulin 2.4 g/dL N 2-4 Albumin/Globulin Ratio 1.9 N 1-3 Total Bilirubin 1.30 mg/dL High 0.2-1.0 Alkaline Phosphatase 75 U/L N 34-104 Alt 66 U/L High 7-52 Ast 54 U/L High 13-39 Egfr Non- 94.3 N >60 Egfr 121.3 N >60 43 Laboratory test 10/19/2016 [facility] Lyme Disease Negative N Negative 44 finding [phone] Serology CBC Auto Diff 10/05/2016 [facility] White Blood 7.5 10^3/uL N 3.5- 10.8 [phone] Count Red Blood Count 4.60 10^6/uL N 4.0-5.4 Hemoglobin 14.6 g/dL N 14.0-18.0 Hematocrit 41 % Low 42-52 Mean Corpuscular Volume 89 fL N 80-94 Mean Corpuscular Hemoglobin 32 pg High 27-31 Mean Corpuscular HGB Conc 36 g/dL N 31-36 Red Cell Distribution Width 14 % N 10.5-15 Platelet Count 114 10^3/uL Low 150-450 Mean Platelet Volume 9 um3 N 7.4-10.4 Abs Neutrophils 4.1 10^3/uL N 1.5-7.7 Abs Lymphocytes 2.4 10^3/uL N 1.0-4.8 Abs Monocytes 0.7 10^3/uL N 0-0.8 Abs Eosinophils 0.2 10^3/uL N 0-0.6 Abs Basophils 0.1 10^3/uL N 0-0.2 Abs Nucleated RBC 0.01 10^3/uL N Granulocyte % 55.4 % N 38-83 Lymphocyte % 32.0 % N 25-47 Monocyte % 8.9 % N 1-9 Eosinophil % 2.6 % N 0-6 Basophil % 1.1 % N 0-2 Nucleated Red Blood Cells % 0.2 N Basic Metabolic Panel 10/05/2016 [facility] Sodium 134 mmol/L N 133- 145 [phone] Potassium 3.7 mmol/L N 3.5-5.0 Chloride 101 mmol/L N 101-111 Co2 Carbon Dioxide 27 mmol/L N 22-32 Anion Gap 6 mmol/L N 2-11 Glucose 164 mg/dL High 70-100 Blood Urea Nitrogen 19 mg/dL N 6-24 Creatinine 0.95 mg/dL N 0.67-1.17 BUN/Creatinine Ratio 20.0 N 8-20 Calcium 9.5 mg/dL N 8.6-10.3 Egfr Non- 82.9 N >60 Egfr 106.7 N >60 45 Urine Drug Screen Inhouse 09/08/2016 In House Ua Cocaine - Ua Opiates - Ua Amphetamines - Urine Methanphetamines - Urine Benzodiazepines QN [place] - Urine Oxycodone QL - Laboratory test 09/08/2016 In House Hemoglobin A1c 6.3 finding Laboratory test 07/09/2016 [facility] Surgical Pathology SEE RESULT 46, 47 finding [phone] BELOW Laboratory test 07/09/2016 [facility] Clotest SEE RESULT 48, 49 finding [phone] BELOW Laboratory test 06/03/2016 In House Hemoglobin A1c 6.4 finding Laboratory test 05/06/2016 In House Glucose 196 50 finding Quantitative Laboratory test 04/08/2016 [facility] TSH (Thyroid Stim 1.90 ?IU/mL N 0.34-5 51 finding [phone] Horm) .60 Creatine Kinase(CK) 191 U/L N 10-223 52 Urine Microalbumin 04/08/2016 [facility] Ur Microalbumin < 5.0 mg/L N Random [phone] (mg/L) Urine Creatinine 240.05 mg/dL N Urine Microalbumin/Creatinine TNP ug/mg N <31 53 Lipid Profile 04/08/2016 [facility] Triglycerides 252 mg/dL N 54 (Trig/Chol/HDL) [phone] Cholesterol 156 mg/dL N 55 HDL Cholesterol 29.6 mg/dL N 56 LDL Cholesterol 76 mg/dL N 57 Laboratory test 03/04/2016 [facility] Point of Care 127 mg/dL High 74 -106 58 finding [phone] Glucose Laboratory test 03/02/2016 In House Hemoglobin A1c 6.6 finding Urine Drug Screen 03/02/2016 In House Ua Cocaine - Inhouse Ua Opiates - Ua Amphetamines - Urine Methanphetamines - Urine Benzodiazepines QN [place] - Urine Oxycodone QL - CBC Auto Diff 02/28/2016 [facility] White Blood Count 5.5 10^3/uL N 3.5-10.8 [phone] Red Blood Count 4.72 10^6/uL N 4.0-5.4 Hemoglobin 14.4 g/dL N 14.0-18.0 Hematocrit 43 % N 42-52 Mean Corpuscular Volume 91 fL N 80-94 Mean Corpuscular Hemoglobin 30 pg N 27-31 Mean Corpuscular HGB Conc 34 g/dL N 31-36 Red Cell Distribution Width 14 % N 10.5-15 Platelet Count 108 10^3/uL Low 150-450 Mean Platelet Volume 9 um3 N 7.4-10.4 Abs Neutrophils 3.4 10^3/uL N 1.5-7.7 Abs Lymphocytes 1.5 10^3/uL N 1.0-4.8 Abs Monocytes 0.4 10^3/uL N 0-0.8 Abs Eosinophils 0.2 10^3/uL N 0-0.6 Abs Basophils 0 10^3/uL N 0-0.2 Abs Nucleated RBC 0 10^3/uL N Granulocyte % 61.4 % N 38-83 Lymphocyte % 27.1 % N 25-47 Monocyte % 7.7 % N 1-9 Eosinophil % 3.0 % N 0-6 Basophil % 0.8 % N 0-2 Nucleated Red Blood Cells % 0.1 N Comp Metabolic Panel 02/28/2016 [facility] Sodium 136 mmol/L N 133- 145 [phone] Potassium 3.8 mmol/L N 3.5-5.0 Chloride 103 mmol/L N 101-111 Co2 Carbon Dioxide 25 mmol/L N 22-32 Anion Gap 8 mmol/L N 2-11 Glucose 208 mg/dL High 70-100 Blood Urea Nitrogen 15 mg/dL N 6-24 Creatinine 0.88 mg/dL N 0.67-1.17 BUN/Creatinine Ratio 17.0 N 8-20 Calcium 9.5 mg/dL N 8.6-10.3 Total Protein 6.5 g/dL N 6.4-8.9 Albumin 4.2 g/dL N 3.2-5.2 Globulin 2.3 g/dL N 2-4 Albumin/Globulin Ratio 1.8 N 1-3 Total Bilirubin 1.30 mg/dL High 0.2-1.0 Alkaline Phosphatase 95 U/L N 34-104 Alt 60 U/L High 7-52 Ast 54 U/L High 13-39 Egfr Non- 90.6 N >60 Egfr 116.5 N >60 59 Laboratory test finding 02/28/2016 [facility] Amylase 28 U/L Low 29- 103 [phone] Lipase 39 U/L N 11.0-82.0 C Reactive Protein 2.32 mg/L N < 5.00 60 Liver Function Panel 02/18/2016 [facility] Total Protein 6.8 g/dL N 6.4-8.9 [phone] Albumin 4.5 g/dL N 3.2-5.2 Globulin 2.3 g/dL N 2-4 Albumin/Globulin Ratio 2.0 N 1-3 Total Bilirubin 1.20 mg/dL High 0.2-1.0 Direct Bilirubin 0.20 mg/dL High 0.03-0.18 Indirect Bilirubin 1.0 mg/dL N 0.3-1.0 Alkaline Phosphatase 94 U/L N 34-104 Alt 56 U/L High 7-52 Ast 42 U/L High 13-39 Urine Micro Inhouse 02/18/2016 In House Ua WBC - 61 Ua RBC - Ua Casts - Ua Epi - Ua Other - Ua Glucose - Ua Bilirubin - Ua Ketones - Ua Specific [place] 1.010 Ua Blood - Ua PH 7.0 Ua Protein - Ua Urobilinogen - Ua Nitrite - Ua Leukocytes - Urine Drug Screen Inhouse 02/03/2016 In House Ua Cocaine - Ua Opiates - Ua Amphetamines - Urine Methanphetamines - Urine Benzodiazepines QN [place] - Urine Oxycodone QL - Urine Drug Screen Inhouse 01/20/2016 In House Ua Cocaine - Ua Opiates - Ua Amphetamines - Urine Methanphetamines - Urine Benzodiazepines QN [place] - Urine Oxycodone QL - Laboratory test finding 12/30/2015 [facility] Ceruloplasmin 15.9 mg/dL N 62 [phone] Endomysial Abs Negative N Negative 63 Ferritin 156.7 ng/mL N 24-336 Iron & Iron Binding Capacity 12/30/2015 [facility] Iron 103 g/dL N 50-212 [phone] Unsaturated Iron Binding 342 g/dL N Total Iron Binding Capacity 445 g/dL N 250-450 % Iron Saturation 23 % N 15-55 Laboratory test 12/30/2015 [facility] Hepatitis C Nonreactive N Nonreactive finding [phone] Antibody Hepatitis B Surface Ag Nonreactive N Nonreactive Inr/Protime 12/30/2015 [facility] Inr 1.08 N 0.89-1.11 [phone] CBC Auto Diff 12/30/2015 [facility] White Blood Count 6.7 10^3/uL N 3.5-10.8 [phone] Red Blood Count 4.96 10^6/uL N 4.0-5.4 Hemoglobin 15.2 g/dL N 14.0-18.0 Hematocrit 44 % N 42-52 Mean Corpuscular Volume 89 fL N 80-94 Mean Corpuscular Hemoglobin 31 pg N 27-31 Mean Corpuscular HGB Conc 34 g/dL N 31-36 Red Cell Distribution Width 14 % N 10.5-15 Platelet Count 137 10^3/uL Low 150-450 Mean Platelet Volume 9 um3 N 7.4-10.4 Abs Neutrophils 3.8 10^3/uL N 1.5-7.7 Abs Lymphocytes 2.1 10^3/uL N 1.0-4.8 Abs Monocytes 0.6 10^3/uL N 0-0.8 Abs Eosinophils 0.1 10^3/uL N 0-0.6 Abs Basophils 0.1 10^3/uL N 0-0.2 Abs Nucleated RBC 0.01 10^3/uL N Granulocyte % 56.6 % N 38-83 Lymphocyte % 31.8 % N 25-47 Monocyte % 8.8 % N 1-9 Eosinophil % 1.9 % N 0-6 Basophil % 0.9 % N 0-2 Nucleated Red Blood Cells % 0.2 N Laboratory test 12/30/2015 [facility] Smooth Muscle Negative N Negative 64 finding [phone] Antibody Katerina (Antinuclear Antibodies) Negative N Negative Comp Metabolic Panel 2015 [facility] Sodium 134 mmol/L N 133- 145 [phone] Potassium 3.5 mmol/L N 3.5-5.0 Chloride 101 mmol/L N 101-111 Co2 Carbon Dioxide 26 mmol/L N 22-32 Anion Gap 7 mmol/L N 2-11 Glucose 116 mg/dL High 70-100 Blood Urea Nitrogen 10 mg/dL N 6-24 Creatinine 0.96 mg/dL N 0.67-1.17 BUN/Creatinine Ratio 10.4 N 8-20 Calcium 9.9 mg/dL N 8.6-10.3 Total Protein 7.0 g/dL N 6.4-8.9 Albumin 4.4 g/dL N 3.2-5.2 Globulin 2.6 g/dL N 2-4 Albumin/Globulin Ratio 1.7 N 1-3 Total Bilirubin 2.00 mg/dL High 0.2-1.0 Alkaline Phosphatase 73 U/L N 34-104 Alt 59 U/L High 7-52 Ast 39 U/L N 13-39 Egfr Non- 81.9 N >60 Egfr 105.4 N >60 65 CBC Auto Diff 2015 [facility] White Blood Count 8.6 10^3/uL N 4.8-10.8 [phone] Red Blood Count 4.78 10^6/uL N 4.0-5.4 Hemoglobin 14.6 g/dL N 14.0-18.0 Hematocrit 43 % N 42-52 Mean Corpuscular Volume 90 fL N 80-94 Mean Corpuscular Hemoglobin 31 pg N 27-31 Mean Corpuscular HGB Conc 34 g/dL N 31-36 Red Cell Distribution Width 13 % N 10.5-15 Platelet Count 148 10^3/uL Low 150-450 Mean Platelet Volume 8 um3 N 7.4-10.4 Abs Neutrophils 5.8 10^3/uL N 1.5-7.7 Abs Lymphocytes 2.0 10^3/uL N 1.0-4.8 Abs Monocytes 0.7 10^3/uL N 0-0.8 Abs Eosinophils 0.1 10^3/uL N 0-0.6 Abs Basophils 0 10^3/uL N 0-0.2 Abs Nucleated RBC 0 10^3/uL N Granulocyte % 66.5 % N 38-83 Lymphocyte % 23.6 % Low 25-47 Monocyte % 7.9 % N 1-9 Eosinophil % 1.5 % N 0-6 Basophil % 0.5 % N 0-2 Nucleated Red Blood Cells % 0 N CSF Cell Count 2015 [facility] Body Fluid Appearance Clear N [phone] Body Fluid Color Colorless N CSF Tube # 4 N Body Fluid Volume 1.5 mL N Body Fluid WBC 1 N Body Fluid RBC 0 N Body Fluid Lymph 9 N Body Fluid [place] 5 N Body Fluid Total Cells Counted 14 N Body Fluid Comment (SEE NOTE) N 66 Fluid Reviewed By MD (SEE NOTE) N 67 Laboratory test finding 2015 [facility] CSF Glucose 70 mg/dL N 40-70 [phone] CSF Total Protein 38 mg/dL N 15-45 CSF Culture & Gram Stain SEE RESULT BELOW 68 CBC Auto Diff 11/02/2015 [facility] White Blood Count 8.8 10^3/uL N 4.8-10.8 [phone] Red Blood Count 4.58 10^6/uL N 4.0-5.4 Hemoglobin 14.1 g/dL N 14.0-18.0 Hematocrit 41 % Low 42-52 Mean Corpuscular Volume 90 fL N 80-94 Mean Corpuscular Hemoglobin 31 pg N 27-31 Mean Corpuscular HGB Conc 34 g/dL N 31-36 Red Cell Distribution Width 13 % N 10.5-15 Platelet Count 144 10^3/uL Low 150-450 Mean Platelet Volume 8 um3 N 7.4-10.4 Abs Neutrophils 6.3 10^3/uL N 1.5-7.7 Abs Lymphocytes 1.8 10^3/uL N 1.0-4.8 Abs Monocytes 0.5 10^3/uL N 0-0.8 Abs Eosinophils 0.1 10^3/uL N 0-0.6 Abs Basophils 0.1 10^3/uL N 0-0.2 Abs Nucleated RBC 0 10^3/uL N Granulocyte % 71.5 % N 38-83 Lymphocyte % 20.6 % Low 25-47 Monocyte % 5.9 % N 1-9 Eosinophil % 0.8 % N 0-6 Basophil % 1.2 % N 0-2 Nucleated Red Blood Cells % 0 N Comp Metabolic Panel 11/02/2015 [facility] Sodium 137 mmol/L N 133- 145 [phone] Potassium 3.7 mmol/L N 3.5-5.0 Chloride 105 mmol/L N 101-111 Co2 Carbon Dioxide 25 mmol/L N 22-32 Anion Gap 7 mmol/L N 2-11 Glucose 122 mg/dL High 70-100 Blood Urea Nitrogen 9 mg/dL N 6-24 Creatinine 0.81 mg/dL N 0.67-1.17 BUN/Creatinine Ratio 11.1 N 8-20 Calcium 9.7 mg/dL N 8.6-10.3 Total Protein 6.6 g/dL N 6.4-8.9 Albumin 4.3 g/dL N 3.2-5.2 Globulin 2.3 g/dL N 2-4 Albumin/Globulin Ratio 1.9 N 1-3 Total Bilirubin 1.90 mg/dL High 0.2-1.0 Alkaline Phosphatase 70 U/L N 34-104 Alt 55 U/L High 7-52 Ast 31 U/L N 13-39 Egfr Non- 100.1 N >60 Egfr 128.7 N >60 69 Laboratory test 11/02/2015 [facility] C Reactive < 1.00 mg/L N < 5.00 70 finding [phone] Protein CBC Auto Diff 10/26/2015 [facility] White Blood 7.0 10^3/uL N 4.8- 10.8 [phone] Count Red Blood Count 4.68 10^6/uL N 4.0-5.4 Hemoglobin 14.2 g/dL N 14.0-18.0 Hematocrit 43 % N 42-52 Mean Corpuscular Volume 91 fL N 80-94 Mean Corpuscular Hemoglobin 30 pg N 27-31 Mean Corpuscular HGB Conc 34 g/dL N 31-36 Red Cell Distribution Width 13 % N 10.5-15 Platelet Count 129 10^3/uL Low 150-450 Mean Platelet Volume 8 um3 N 7.4-10.4 Abs Neutrophils 4.7 10^3/uL N 1.5-7.7 Abs Lymphocytes 1.6 10^3/uL N 1.0-4.8 Abs Monocytes 0.5 10^3/uL N 0-0.8 Abs Eosinophils 0.1 10^3/uL N 0-0.6 Abs Basophils 0 10^3/uL N 0-0.2 Abs Nucleated RBC 0 10^3/uL N Granulocyte % 66.8 % N 38-83 Lymphocyte % 23.1 % Low 25-47 Monocyte % 7.5 % N 1-9 Eosinophil % 2.0 % N 0-6 Basophil % 0.6 % N 0-2 Nucleated Red Blood Cells % 0 N Comp Metabolic Panel 10/26/2015 [facility] Sodium 133 mmol/L N 133- 145 [phone] Chloride 100 mmol/L Low 101-111 Co2 Carbon Dioxide 25 mmol/L N 22-32 Glucose 150 mg/dL High 70-100 Blood Urea Nitrogen 15 mg/dL N 6-24 Creatinine 0.91 mg/dL N 0.67-1.17 BUN/Creatinine Ratio 16.5 N 8-20 Calcium 9.7 mg/dL N 8.6-10.3 Total Protein 6.5 g/dL N 6.4-8.9 Albumin 4.2 g/dL N 3.2-5.2 Globulin 2.3 g/dL N 2-4 Albumin/Globulin Ratio 1.8 N 1-3 Total Bilirubin 1.70 mg/dL High 0.2-1.0 Alkaline Phosphatase 68 U/L N 34-104 Alt 65 U/L High 7-52 Egfr Non- 87.5 N >60 Egfr 112.5 N >60 71 Potassium TNP mmol/L N 3.5-5.0 72 Anion Gap TNP mmol/L N 2-11 Ast TNP U/L N 13-39 73 Laboratory test finding 10/26/2015 [facility] Lipase 55 U/L N 11.0- 82.0 [phone] C Reactive Protein < 1.00 mg/L N < 5.00 74 Magnesium TNP mg/dL N 1.9-2.7 75 1 Activities Volunteer: [id number] Activities Volunteer: [id number] [address] [facility] Severe Sepsis and Septic Shock Management Bundle Measure requires all lactic acids initially measuring >2.0 mmol/L be repeated. 4 Because ethnic data is not always readily [...] 15-29 5 Kidney failure <15 (or dialysis) 5 SEE RESULT BELOW Name: MARCELLO SAENZ : [address]: Nolan Melo MD Acct: [id number] Unit: [id number] AGE: 57 Location: ED Re09/22/18 SEX: M Status: REG ER SPEC: [id number] GABINO: 09/22/[address]: Darell HAWKINS REQ: [id number] RECD: 09/22/18 STATUS: ADIEL STAUFFER DR: Chino Melo MD _ SOURCE: THROAT SPDESC: ORDERED: Strep A Request Procedure Result Reported Site Rapid Strep A Request Final 09/22/18- 192 ML Specimen received for Rapid Strep A Molecular testing * ML - Main Lab . END OF REPORT DEPARTMENT OF PATHOLOGY, [address] [place] [address] Wilberto Crum M.D. Director [facility] # [id number] 6 SEE RESULT BELOW Name: MARCELLO SAENZ : [address]: Nolan Melo MD Acct: [id number] Unit: [id number] AGE: 57 Location: ED Re09/22/18 SEX: M Status: REG ER SPEC: [id number] GABINO: 09/22/18 [facility] [address]: Darell HAWKINS REQ: [id number] RECD: 09/22/18 STATUS: ADIEL STAUFFER DR: Chino Melo MD _ SOURCE: NASAL SPDESC: ORDERED: Flu A B Request Procedure Result Reported Site Rapid Influenza A B Request Final 09/22/181920 ML Specimen received for Influenza A/B Molecular testing * ML - Main Lab . END OF REPORT DEPARTMENT OF PATHOLOGY, [address] [place] [address] Wilberto Crum M.D. Director [facility] # [id number] Unable to calculate due to low microalbumin 9 Because ethnic data is not always readily [...] 15-29 5 Kidney failure <15 (or dialysis) 10 [facility] Severe Sepsis and Septic Shock Management Bundle Measure requires all lactic acids initially measuring >2.0 mmol/L be repeated. 11 Because ethnic data is not always readily [...] 15-29 5 Kidney failure <15 (or dialysis) 12 Activities Volunteer: [id number] 13 Desirable: <150 Borderline High: 150-199 High: 200-499 Very High: >500 14 Desirable: <200 Borderline High: 200-239 High: >239 15 Low: <40 Desirable: 40-60 High: >60 16 Desirable: <100 Near Optimal: 100-129 Borderline High: 130-159 High: 160-189 Very High: >189 [address] [facility] Severe Sepsis and Septic Shock Management Bundle Measure requires all lactic acids initially measuring >2.0 mmol/L be repeated. 19 Because ethnic data is not always readily [...] 15-29 5 Kidney failure <15 (or dialysis) 20 Desirable: <150 Borderline High: 150-199 High: 200-499 Very High: >500 21 Desirable: <200 Borderline High: 200-239 High: >239 22 Low: <40 Desirable: 40-60 High: >60 23 Desirable: <100 Near Optimal: 100-129 Borderline High: 130-159 High: 160-189 Very High: >189 24 Unable to calculate due to low microalbumin 25 Because ethnic data is not always readily [...] 15-29 5 Kidney failure <15 (or dialysis) 26 void, clear, pale yellow 27 Because ethnic data is not always readily [...] 15-29 5 Kidney failure <15 (or dialysis) 28 Normal Range 180 to 914 Indeterminate Range 145 to 180 Deficient Range <145 29 Consistent with early infection with Borrelia burgdorferi. [...] screening test (e.g., EIA). Test Performed by: [place] [address] Dubbing Machine Operator: Ghassan Chavez II, M.D., Ph.D. 30 Acute inflammation: >10.00 31 ADDITIONAL INFORMATION This test was developed and its performance characteristics determined by [facility] in a manner consistent with CLIA requirements. This test has not been cleared or approved by the U.S. Food and Drug Administration. 32 ADDITIONAL INFORMATION This test was developed and its performance characteristics determined by [facility] in a manner consistent with CLIA requirements. This test has not been cleared or approved by the U.S. Food and Drug Administration. 33 ADDITIONAL INFORMATION This test was developed and its performance characteristics determined by [facility] in a manner consistent with CLIA requirements. This test has not been cleared or approved by the U.S. Food and Drug Administration. Test Performed by: [address] [address] Dubbing Machine Operator: Ghassan Chavez II, M.D., Ph.D. 34 Activities Volunteer: [id number] [facility] 35 Activities Volunteer: [id number] [facility] 36 [id number] 37 SEE RESULT BELOW Name: MARCELLO SAENZ : [address]: Shira Apodaca MD Acct: [id number] Unit: [id number] AGE: 56 Location: [facility] Re01/15/17 SEX: M Status: DEP ER SPEC: [id number] GABINO: 01/15/17 [facility] [address]: Shira Apodaca MD REQ: [id number] RECD: 01/16/17-1 STATUS: COMP [facility] DR: Chino Kelly MD _ SOURCE: URINE [facility]: ORDERED: Urine Culture COMMENTS: [id number] Procedure Result Reported Site Urine Culture Final 01/17/17- 1346 ML No Growth (<1,000 CFU/mL) * ML - MAIN LAB ([facility]) . END OF REPORT * ML=Testing performed at Main Lab DEPARTMENT OF PATHOLOGY, [address] [place] [address] Wilberto Crum M.D. Director [facility] # [id number] 38 Activities Volunteer: [id number] ANALILIA [place] 39 SEE RESULT BELOW Name: MARCELLO SAENZ : [address]: Darell Carroll MD Acct: [id number] Unit: [id number] AGE: 56 Location: ED Re11/21/16 SEX: M Status: REG ER SPEC: [id number] GABINO: 11/21/[address]: Darell Carroll MD REQ: [id number] RECD: 11/21/16 STATUS: ADIEL STAUFFER DR: Chino Kelly MD _ SOURCE: NASAL SPDESC: ORDERED: Flu A B Request Procedure Result Reported Site Rapid Influenza A B Request Final 11/21/16- 0230 ML Specimen received for Influenza A/B Molecular testing * ML - MAIN LAB ([facility]) . END OF REPORT * ML=Testing performed at Main Lab DEPARTMENT OF PATHOLOGY, [address] [place] [address] Wilberto Crum M.D. Director [facility] # [id number] 40 SEE RESULT BELOW Name: MARCELLO SAENZ : [address]: Darell Carroll MD Acct: [id number] Unit: [id number] AGE: 56 Location: ED Re11/21/16 SEX: M Status: REG ER SPEC: [id number] GABINO: 11/21/16-[address]: Darell Carroll MD REQ: [id number] RECD: 11/21/16 STATUS: ADIEL STAUFFER DR: Chino Kelly MD _ SOURCE: THROAT SPDESC: ORDERED: Strep A Request Procedure Result Reported Site Rapid Strep A Request Final 11/21/16- 0230 ML Specimen received for Rapid Strep A Molecular testing * ML - MAIN LAB ([facility]) . END OF REPORT * ML=Testing performed at Main Lab DEPARTMENT OF PATHOLOGY, [address] [place] [address] Wilberto Crum M.D. Director [facility] # [id number] 41 Activities Volunteer: INGRID Rene 42 Activities Volunteer: INGRID Rene 43 Because ethnic data is not always readily [...] 15-29 5 Kidney failure <15 (or dialysis) 44 Serologic response to B. burgdorferi infection is not detected, but cannot rule out early infection during which low or undetectable antibody levels to B. burgdorferi may be present. If clinically indicated, a new serum specimen should be submitted in 7-14 days. Test Performed by: [place] [address] Dubbing Machine Operator: Ghassan Chavez II, M.D., Ph.D. 45 Because ethnic data is not always readily [...] 15-29 5 Kidney failure <15 (or dialysis) 46 [id number] 47 SEE RESULT BELOW Name: MARCELLO SAENZ : [address]: Kahlil Sauceda MD Acct: [id number] Unit: [id number] AGE: 55 Location: [facility] Re07/09/16 SEX: M Status: DEP REF SPEC: [id number] GABINO: 07/09/161303 [facility] DR: Kahlil Sauceda MD REQ: [id number] RECD: 07/09/164947 STATUS: CRYSTAL STAUFFER DR: Chino Kelly MD _ ORDERED: LEVEL IV COMMENTS: [id number] FINAL DIAGNOSIS Colon, descending, biopsy: -- Tubular [...] performed at Main Lab DEPARTMENT OF PATHOLOGY, [address] [place] [address] Wilberto Crum M.D. Director [facility] # [id number] 48 [id number] 49 SEE RESULT BELOW Name: MARCELLO SAENZ Corazon : [address]: Kahlil Sauceda MD Acct: [id number] Unit: [id number] AGE: 55 Location: [facility] Re07/09/16 SEX: M Status: REG REF SPEC: [id number] GABINO: 07/09/16-1240 [facility] [address]: Kahlil Sauceda MD REQ: [id number] RECD: 07/09/16 STATUS: ADIEL STAUFFER DR: Chino Kelly MD _ SOURCE: GAS ANTRUM SPDES: ORDERED: Clotest COMMENTS: [id number] Procedure Result Reported Site Clotest Final 07/10/16- 0752 ML Clotest Negative * ML - MAIN LAB ([facility]) . END OF REPORT * ML=Testing performed at Main Lab DEPARTMENT OF PATHOLOGY, [address] [place] [address] Wilberto Crum M.D. Director [facility] # [id number] 50 Dr. Kelly aware 51 FASTING 12 HOUR 52 FASTING 12 HOUR 53 Unable to calculate due to low microalbumin 54 Desirable <150 Borderline high 150-199 High 200-499 Very High >500 55 Desirable <200 Borderline high 200-239 High >239 56 Low <40 Desirable: 40-60 High: >60 57 Desirable: <100 mg/dL Near Optimal: 100-129 mg/dL Borderline High: 130-159 mg/dL High: 160-189 mg/dL Very High: >189 mg/dL 58 Activities Volunteer: [id number] ALAINA BRAUN 59 Because ethnic data is not always [...] (or dialysis) 60 Acute inflammation: >10.00 61 void, clear, yellow 62 REFERENCE VALUE 15.0 - 30.0 Test Performed by: [place] [address] Dubbing Machine Operator: Ghassan Chavez II, M.D., Ph.D. 63 Negative in normal individuals. May be negative in dermatitis herpatiformis or celiac disease patients adhering to a gluten free diet. ADDITIONAL INFORMATION Laboratory developed test. Test Performed by: [place] [address] Dubbing Machine Operator: Ghassan Chavez II, M.D., Ph.D. 64 Test Performed by: [place] [address] Dubbing Machine Operator: Ghassan Chavez II, M.D., Ph.D. 65 Because ethnic data is not always readily [...] 15-29 5 Kidney failure <15 (or dialysis) 66 Differential performed on concentrated smear. 67 No evidence of malignancy or acute inflammatory response. No microorganisms. Reviewed by Dr. Crum 68 SEE RESULT BELOW Name: MARCELLO SAENZ Corazon : [address]: Jem Peña MD Acct: [id number] Unit: [id number] AGE: 55 Location: ED Re11/03/15 SEX: M Status: DEP ER SPEC: [id number] GABINO: 11/03/15 [facility] [address]: Jem Peña MD REQ: [id number] RECD: 11/03/15 STATUS: ADIEL STAUFFER DR: Chino [...] performed at Main Lab DEPARTMENT OF PATHOLOGY, [address] [place] [address] Wilberto Crum M.D. Director [facility] # [id number] 69 Because ethnic data is not always readily [...] 15-29 5 Kidney failure <15 (or dialysis) 70 Acute inflammation: >10.00 71 Because ethnic data is not always readily [...] 15-29 5 Kidney failure <15 (or dialysis) 72 Unable to report test result due to hemolysis. 73 Unable to report test result due to hemolysis. 74 Acute inflammation: >10.00 75 Unable to report test result due to hemolysis. 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 uncomplicated M54.2 Cervicalgia E11.9 Type 2 diabetes mellitus without complications G47.00 Insomnia, unspecified F34.1 Dysthymic disorder Z71.51 Drug abuse counseling and surveillance of drug abuser Office Visit 11/16/2018 9:15a Main Office Chino Kelly E11.9 Type 2 diabetes M.D. mellitus without complications F11.20 Opioid dependence, uncomplicated Z71.51 Drug abuse counseling and surveillance of drug abuser M54.2 Cervicalgia R11.0 Nausea K21.9 Gastro-esophageal reflux disease without esophagitis Office Visit 10/17/2018 8:30a Main Office Ap Kelly Opioid Chino lawton M.D. uncomplicated M54.2 Cervicalgia E11.9 Type 2 diabetes mellitus without complications Z71.51 Drug abuse counseling and surveillance of drug abuser R11.0 Nausea K21.9 Gastro-esophageal reflux disease without esophagitis Office Visit 09/09/2018 11:45a Main Office Ap Kelly Opioid Chino lawton M.D. uncomplicated M54.2 Cervicalgia E11.9 Type 2 diabetes mellitus without complications Z71.51 Drug abuse counseling and surveillance of drug abuser Z23 Encounter for immunization Office Visit 08/08/2018 11:45a Main Office Ap Kelly Opioid Chino lawton M.D. uncomplicated M54.2 Cervicalgia E11.9 Type 2 diabetes mellitus without complications Z71.51 Drug abuse counseling and surveillance of drug abuser Office Visit 07/11/2018 4:30p Main Office Martell Kelly1.20 Opioid dependenceChino M.D. uncomplicated E11.9 Type 2 diabetes mellitus without complications G43.009 Migraine w/o aura, not intractable, w/o status migrainosus Office Visit 06/08/2018 11:45a Main Office Leticia F11.20 Opioid dependenceChino M.D. uncomplicated G43.009 Migraine w/o aura, not intractable, w/o status migrainosus E11.9 Type 2 diabetes mellitus without complications S92.515A Nondisp fx of proximal phalanx of left lesser toe(s), init Office Visit 05/09/2018 9:30a Main Office Chino Kelly, E11.9 Type 2 diabetes M.D. mellitus without complications F11.20 Opioid dependence, uncomplicated G43.009 Migraine w/o aura, not intractable, w/o status migrainosus Office Visit 04/09/2018 9:45a Main Office Leticia F11.20 Opioid dependenceChino M.D. uncomplicated E11.9 Type 2 diabetes mellitus without complications Z23 Encounter for immunization M25.50 Pain in unspecified joint M54.2 Cervicalgia Z79.899 Other half-way (current) drug therapy Office Visit 03/14/2018 10:15a Main Office Martell Kelly1.20 Opioid Chino lawton M.D. uncomplicated E11.9 Type 2 diabetes mellitus without complications K08.9 Disorder of teeth and supporting structures, unspecified Office Visit 02/07/2018 10:15a Main Office Martell Kelly1.20 Opioid dependenceChino M.D. uncomplicated E11.9 Type 2 diabetes mellitus without complications Office Visit 01/07/2018 2:00p Main Office Martell Kelly1.20 Opioid dependenceChino M.D. uncomplicated M54.2 Cervicalgia E11.9 Type 2 diabetes mellitus without complications Office Visit 12/06/2017 11:45a Main Office Martell Kelly1.20 Opioid dependenceChino M.D. uncomplicated E11.9 Type 2 diabetes mellitus without complications S06.0x1D Concussion w Loc of 30 minutes or less, subs Office Visit 2017 2:30p Main Office Martell Kelly1.20 Opioid Chino lawton M.D. uncomplicated M54.2 Cervicalgia E11.9 Type 2 diabetes mellitus without complications Z71.89 Other specified counseling Office Visit 10/09/2017 9:45a Main Office Chino Kelly E11.9 Type 2 diabetes M.D. mellitus without complications F11.20 Opioid dependence, uncomplicated R11.0 Nausea Office Visit 09/08/2017 10:30a Main Office Chino Kelly E11.9 Type 2 diabetes M.D. mellitus without complications F11.20 Opioid dependence, uncomplicated M54.2 Cervicalgia Office Visit 08/10/2017 9:45a Main Office Leticia F11.20 Opioid Chino lawton M.D. uncomplicated R11.0 Nausea Z41.8 [facility] for immunization Office Visit 07/07/2017 11:30a Main Office eLticia F11.20 Opioid Chino lawton M.D. uncomplicated E11.9 Type 2 diabetes mellitus without complications Office Visit 06/04/2017 10:15a Main Office Chino Kelly E11.9 Type 2 diabetes M.D. mellitus without complications F11.20 Opioid dependence, uncomplicated L91.8 Other hypertrophic disorders of the skin Office Visit 05/03/2017 11:00a Main Office Martell Kelly1.20 Opioid Chino lawton M.D. uncomplicated L72.3 Sebaceous cyst E11.9 Type 2 diabetes mellitus without complications Office Visit 03/30/2017 10:00a Main Office Leticia F11.20 Opioid Chino lawton M.D. uncomplicated M54.2 Cervicalgia E11.9 Type 2 diabetes mellitus without complications Office Visit 02/26/2017 10:15a Main Office Chino Kelly E11.9 Type 2 diabetes M.D. mellitus without complications F11.20 Opioid dependence, uncomplicated Office Visit 01/29/2017 10:15a Main Office Chino Kelly M.D. N48.1 Balanitis A69.20 Lyme disease, unspecified F11.20 Opioid dependence, uncomplicated Office Visit 01/21/2017 9:45a Main Office Cristian Romero, A07.0 Balantidiasis D.O. Office Visit 01/18/2017 9:45a Main Office HectorCristian craig, R35.0 Frequency of D.O. micturition R25.2 Cramp and spasm M54.2 Cervicalgia G43.119 Migraine with aura, intractable, without status migrainosus R53.83 Other fatigue Office Visit 01/05/2017 9:30a Main Office Leticia F11.20 Opioid dependenceChino M.D. uncomplicated Z71.51 Drug abuse counseling and surveillance of drug abuser J31.0 Chronic rhinitis R25.2 Cramp and spasm H10.213 Acute toxic conjunctivitis, bilateral Office Visit 12/04/2016 9:30a Main Office Chino Kelly E11.9 Type 2 diabetes M.D. mellitus without complications F11.20 Opioid dependence, uncomplicated R11.0 Nausea G43.009 Migraine w/o aura, not intractable, w/o status migrainosus Z71.51 Drug abuse counseling and surveillance of drug abuser Office Visit 2016 9:30a Main Office Leticia F11.20 Opioid Chino lawton M.D. uncomplicated R11.0 Nausea E11.9 Type 2 diabetes mellitus without complications G47.33 Obstructive sleep apnea (adult) (pediatric) G47.00 Insomnia, unspecified Office Visit 10/09/2016 9:30a Main Office Chino Kelly, B37.42 Candidal balanitis Rosi F11.20 Opioid dependence, uncomplicated K21.9 Gastro-esophageal reflux disease without esophagitis R11.0 Nausea G43.009 Migraine w/o aura, not intractable, w/o status migrainosus E11.65 Type 2 diabetes mellitus with hyperglycemia Office Visit 09/08/2016 3:45p Main Office Cristian Romero, E11.65 Type 2 diabetes D.O. mellitus with hyperglycemia F11.20 Opioid dependence, uncomplicated K21.9 Gastro-esophageal reflux disease without esophagitis R11.0 Nausea G43.009 Migraine w/o aura, not intractable, w/o status migrainosus Office Visit 08/05/2016 2:30p Main Office Leticia F11.20 Opioid dependence, Chino, M.D. uncomplicated E11.65 Type 2 diabetes mellitus with hyperglycemia K21.9 Gastro-esophageal reflux disease without esophagitis R11.0 Nausea G43.009 Migraine w/o aura, not intractable, w/o status migrainosus Z71.89 Other specified counseling Z23 Encounter for immunization Office Visit 07/08/2016 1:30p Main Office Leticia F11.20 Opioid dependence, Rosi Magana uncomplicated G47.33 Obstructive sleep apnea (adult) (pediatric) S92.355D Nondisp fx of 5th metatarsal bone, l ft, 7thD K76.0 Fatty (change of) liver, not elsewhere classified E66.9 Obesity, unspecified K21.9 Gastro-esophageal reflux disease without esophagitis R11.0 Nausea E11.65 Type 2 diabetes mellitus with hyperglycemia G43.009 Migraine w/o aura, not intractable, w/o status migrainosus Office Visit 06/03/2016 4:15p Main Office Abel Kelly.65 Type 2 diabetes Rosi Magana mellitus with hyperglycemia E66.9 Obesity, unspecified F11.20 Opioid dependence, uncomplicated G47.33 Obstructive sleep apnea (adult) (pediatric) S92.355D Nondisp fx of 5th metatarsal bone, l ft, 7thD Office Visit 05/06/2016 11:15a Main Office Delta Kelly Type 2 diabetes Rosi Magana mellitus with hyperglycemia R10.11 Right upper quadrant pain K76.0 Fatty (change of) liver, not elsewhere classified E66.9 Obesity, unspecified F11.20 Opioid dependence, uncomplicated M79.1 Myalgia G47.33 Obstructive sleep apnea (adult) (pediatric) Z68.32 Body mass index (BMI) 32.0-32.9, adult Office Visit 04/01/2016 11:00a Main Office Chino Kelly Z23 Encounter for M.D. immunization F11.20 Opioid dependence, uncomplicated R10.11 Right upper quadrant pain K76.0 Fatty (change of) liver, not elsewhere classified E11.65 Type 2 diabetes mellitus with hyperglycemia E66.9 Obesity, unspecified Z13.220 Encounter for screening for lipoid disorders R53.83 Other fatigue M79.1 Myalgia K21.9 Gastro-esophageal reflux disease without esophagitis Z23 Encounter for immunization Office Visit 03/02/2016 11:15a Main Office Leticia F11.20 Opioid dependenceChino M.D. uncomplicated K76.0 Fatty (change of) liver, not elsewhere classified R10.11 Right upper quadrant pain E66.9 Obesity, unspecified E11.65 Type 2 diabetes mellitus with hyperglycemia B35.1 Tinea unguium R73.9 Hyperglycemia, unspecified Office Visit 02/03/2016 11:30a Main Office Martell Kelly1.20 Opioid dependenceChino M.D. uncomplicated R35.0 Frequency of micturition B35.1 Tinea unguium M54.2 Cervicalgia M25.50 Pain in unspecified joint Office Visit 01/20/2016 11:00a Main Office Martell Kelly1.Ronle Opioid dependenceChino M.D. uncomplicated B35.1 Tinea unguium M25.50 Pain in unspecified joint G43.009 Migraine w/o aura, not intractable, w/o status migrainosus Z51.81 Encounter for therapeutic drug level monitoring Office Visit 12/30/2015 11:30a Main Office Leticia F11.20 Opioid dependenceChino M.D. uncomplicated M54.2 Cervicalgia M54.5 Low back pain F41.9 Anxiety disorder, unspecified R74.0 Nonspec elev of levels of transamns & lactic acid dehydrgnse Office Visit 11/27/2015 12:55p Main Office Martell Kelly1.Ronel Opioid dependenceChino M.D. uncomplicated M54.5 Low back pain F41.9 Anxiety disorder, unspecified R74.0 Nonspec elev of levels of transamns & lactic acid dehydrgnse E80.7 Disorder of bilirubin metabolism, unspecified G93.0 Cerebral cysts M54.2 Cervicalgia Plan of Treatment Future Appointment(s):01/23/2019 10:15 am - Chino Kelly M.D. at Main [facility]12/20/2018 - Chino Kelly M.D.F11.20 Opioid dependence, uncomplicatedFollow up:RTO 1month.M54.2 CervicalgiaNew Medication:Diclofenac Sodium 50 mg - take 2 tablets by mouth at onset of neck pain, then up to 1 tablet every 8hoursComments:This is a longstanding problem for him. In midst of PT w/o relief. Once he completes PT, if not helping adequately, he will report back at wc point we will reach out for insurance approval for MRI (previously declined b/o needing to complete PT) and refer back to pain clinic (he never went previously b/o insurance wouldn't cover the MRI) .WRT meds advised against use of toradol, noting it was only indicated for very short term use after IV or IM dose, and was not an appropriate med to have on hand for prn use. Also advised against repeated courses of po steroids knowing they have added toxicities over a lifetime, and b/o he gets only very short term benefit.Discussed trying an alternate NSAID, diclofenac. He understands if using this he is not to use ibuprofen or naproxen/Aleve.E11.9 Type 2 diabetes mellitus without complicationsFollow up:Please don't forget to reschedule an appointment with the eye doctor (Dr Clement) for a diabetic eye exam.G47.00 Insomnia, unspecifiedComments:treat depression then ukpqbyhuF41.1 Dysthymic disorderNew Medication:Venlafaxine HCL ER 37.5 mg - 1 by mouth every day for 1 week then change to 75mg doseVenlafaxine HCL ER 75 mg - 1 by mouth every day ( after taking 37.5mg dose for 1 week); for moodDuloxetine HCL 30 mg - 1 by mouth every day for 1 week then change to 60mg dose; for moodDuloxetine HCL 60 mg - 1 by mouth every day (starting after 1 week on 30mg dose); for mood and chronic painComments:Discussed trial of duloxetine, reviewed S/E profile. He notes never trying this before but in years past was tried on numerous antidepressants , antiepeleptics but nothing really helped much and all caused problem side effects. (After pt left we learned his insurance would not cover this so trying venlafaxine instead).Z71.51 Drug abuse counseling and surveillance of drug abuser
[2019-01-05 06:33] LABS: ABS Basophils 0 10^3/ul (0-0.2); ABS Eosinophils 0.1 10^3/ul (0-0.6); ABS Lymphocytes 1.3 10^3/ul (1.0-4.8); ABS Monocytes 0.4 10^3/ul (0-0.8); ABS Neutrophils 4.2 10^3/ul (1.5-7.7); ABS Nucleated RBC 0 10^3/ul; Eosinophil % 1.5 %; Hematocrit 40 % (42-52); Hemoglobin 13.9 g/dl (14.0-18.0); Mean Corpuscular HGB Conc 35 g/dl (31-36); Mean Corpuscular Hemoglobin 30 pg (27-31); Mean Corpuscular Volume 88 fL (80-94); Mean Platelet Volume 8.4 fL (7.4-10.4); Nucleated Red Blood Cells % 0; Platelet Count 122 10^3/ul (150-450); Red Blood Count 4.57 10^6/ul (4.00-5.40); Red Cell Distribution Width 13 % (10.5-15)
[2019-01-05] MEDS ORDERED: Ketorolac INJ* 30 MG/ML 1 ML VIAL IV PUSH ONE (06:56)
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
[2019-01-05 06:58] LABS: Albumin 4.2 g/dL (3.2-5.2); Albumin/Globulin Ratio 2.1 (1-3); BUN/Creatinine Ratio 14.1 (8-20); Calcium 9.4 mg/dL (8.6-10.3); EGFR Non-African American 85.1 (>60); Potassium 4.3 mmol/L (3.5-5.0); Total Bilirubin 1.1 mg/dL (0.2-1.0); Total Protein 6.2 g/dL (6.4-8.9)
[2019-01-05] MEDS ORDERED: Morphine VIAL* 10 MG/ML 1 ML VIAL IV ONE (07:52)
[2019-01-05] MEDS ORDERED: Ondansetron INJ* 2 MG/ML VIAL IV ONE (07:52)
[2019-01-05] MEDS ORDERED: Dexamethasone IV* 4 MG/ML 1 ML (4 MG) IV SLOW PU ONE (08:49)
[2019-01-05 10:02] VITALS: BP 139/72
== END 2019-01-05 10:00 | disposition home or self-care (01) ==
LOC: ED 06:01
DX: R51 Headache (principal); K21.9 Gastro-esophageal reflux disease without esophagitis; F32.9 Major depressive disorder, single episode, unspecified; Z87.891 Personal history of nicotine dependence
CPT/HCPCS: 36415; 70450; 80053; 85025; 96361; 96374; 96375; 99284; A9270-GY; J1100; J1885; J2405; J2765

== ENCOUNTER 2019-03-29 14:03 | Emergency (ER) | payer OTHER ==
[2019-03-29] MEDS ORDERED: Ketorolac INJ* 60 MG/2 ML VIAL IM ONE (15:42)
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
[2019-03-29 16:32] VITALS: BP 122/85
== END 2019-03-29 16:31 | disposition home or self-care (01) ==
LOC: ED 14:03
DX: G89.29 Other chronic pain (principal); M54.2 Cervicalgia; R73.03 Prediabetes; K21.9 Gastro-esophageal reflux disease without esophagitis; M54.5 Low back pain; F32.9 Major depressive disorder, single episode, unspecified; Z88.3 Allergy status to other anti-infective agents; Z98.61 Coronary angioplasty status; Z87.820 Personal history of traumatic brain injury; Z87.891 Personal history of nicotine dependence
CPT/HCPCS: 96372; 99282; J1885

== ENCOUNTER 2019-05-07 19:56 | Emergency (ER) | payer OTHER ==
--- OUTSIDE RECORDS SUMMARY | 2019-05-07 20:09 | XMS REPORT | Continuity of Care Document ---
:1960 External Reference #:[id number] Author Name Chino Kelly M.D. Address [address] [facility] [address] [place] [address] Care Team Providers Name Role Phone HCP given Primary Care Physician Unavailable Payers Date Identification Numbers Payment Provider Subscriber Effective: Policy Number: [id number] [employer] (FERCHO Saenz 2014 MGD) PayID: [id number] [address] [address] [place] [address] Problems Active Problems Provider Date Migraine without aura, not refractory Chino Kelly M.D. Onset: 01/20/2016 Opioid dependence, uncomplicated Chino Kelly M.D. Onset: 01/20/2016 Type II diabetes mellitus uncontrolled Chino Kelly M.D. Onset: 2015 Obstructive sleep apnea syndrome Chino Kelly M.D. Onset: 05/06/2016 Refractory migraine with aura Cristian Romero D.O. Onset: 01/18/2017 Type 2 diabetes mellitus Chino Kelly M.D. Onset: 02/27/2019 Gastroesophageal reflux disease Chino Kelly M.D. Onset: 02/27/2019 Family History Date Family Member(s) Observation Comments Father Diabetes, Nos Mother Breast Cancer [...] Heroin Exercise Type/Frequency Exercises rarely Age 1st [place] 19 Years Old Allergies, Adverse Reactions, Alerts Active Allergies Reaction Severity Comments Date Codeine Rx was long time ago 01/20/2016 Doxycycline recurrent severe balanitis 01/29/2017 Inactive Allergies NKDA 12/30/2015 Medications Active Medications SIG Qnty Indications Ordering Date Provider Freestyle Lite Blood use as directed 1units E11.65 Leticia, 03/31/2019 Glucose Monitoring for blood sugar Rosi Magana System monitoring Device Cyclobenzaprine HCL take 1 tablet by 60tabs Leticia, 09/22/2018 10mg mouth three times Rosi Magana Tablets a day if needed for pain Ondansetron 1 by mouth every 30tabs R11.0 Leticia, 08/08/2018 4mg Tablets 4 hours as needed Rosi Magana Dispers for nausea/vomiting R11.2 Ibuprofen 1 cap by mouth 90tabs M25.50 Chino Kelly, 04/09/2018 800mg Tablets three times a day M.D. as needed for pain M54.2 Multivitamin Adult 1 by mouth every day Unknown 05/02/2017 Tablets B Complex 1 by mouth once Unknown 02/25/2017 Tablets daily prn for muscle cramps Freestyle Lite Test use as directed for 100units E11.65 Chino Kelly, 05/06/2016 measuring blood M.D. Strips sugar 1x/day and as needed Freestyle Lancets use as directed once 100units E11.65 Chino Kelly, Misc a day for blood M.D. sugar monitoring Omeprazole take one capsule by 30caps K21.9 Chino Kelly, 04/01/2016 20mg Capsules mouth up to once a M.D. DR day, as needed for acid reflux Suboxone 3/4 film 2x/day; for 45units F11.20 Chino Kelly, 12/19/2015 8-2mg Film chronic pain and M.D. opiate dependence; suboxone prescriber# [id number]; fill when due M54.2 History Medications Venlafaxine HCL ER 1 by mouth every 30caps F34.1 Silariela, 12/20/2018 - 75mg day (after taking Rosi Magana 12/21/2018 Caps ER 24HR 37.5mg dose for 1 week); for mood Venlafaxine HCL ER 1 by mouth every 7caps F34.1 Shadyff, 12/20/2018 - 37.5mg day for 1 week Rosi Magana 12/27/2018 Caps ER 24HR then change to 75mg dose Duloxetine HCL 1 by mouth every 30caps F34.1 Silcoff, 12/20/2018 - 60mg Caps DR day (starting Rosi Magana 12/20/2018 Part after 1 week on 30mg dose); for mood and chronic pain Duloxetine HCL 1 by mouth every 7caps F34.1 Tessacoff, 12/20/2018 - 30mg Caps DR day for 1 week Rosi Magana 12/20/2018 Part then change to 60mg dose; for mood Diclofenac Sodium take 2 tablets by 90tabs M54.2 Leticia, 12/20/2018 - 50mg mouth at onset of Rosi Magana 01/21/2019 Tablets neck pain, then up to 1 tablet every 8 hours Simvastatin take one tablet 90tabs E11.9 Leticia, 09/09/2018 - 20mg Tablets by mouth every Rsoi Magana 11/15/2018 day to lower cholesterol PT For Chronic Neck evaluate and M54.2 Leticia, 08/22/2018 - Pain treat, instruct Rosi Magana 12/23/2018 in hep, modalities as needed Naproxen take one tablet 60tabs M54.2 Leticia, 08/08/2018 - 500mg Tablets by mouth twice a Rosi Magana 12/20/2018 day as needed for neck pain; take with food; do not use on same day as Ibuprofen Methylprednisolone take as directed Unknown 08/02/2018 - 4mg TBPK on pack 09/08/2018 Sumatriptan Succinate 1 by mouth at 6tabs G43.009 Silcoff, 05/09/2018 - 50mg onset of Rosi Magana 06/08/2018 Tablets migraine; may repeat once after 2 hours if needed; max 3x/wk Cyclobenzaprine HCL 1 by mouth three 15tabs M54.2 Silcoff, 05/09/2018 - 10mg times a day as Rosi Magana 07/10/2018 Tablets needed as needed for headache with neck pain. CBD Oil Pills From prn use Unknown 04/08/2018 - [facility] 02/25/2019 Chlorhexidine Gluconate Rinse with 1/2 Unknown 03/13/2018 - ounce by mouth 04/08/2018 0.12% Solution for 30 seconds then spit out. use twice Amoxicillin take 1 capsule by Unknown 03/13/2018 - 500mg Capsules mouth three times 04/08/2018 a day Ketorolac Tromethamine take 1 tablet by 15tabs Leticia, 02/19/2018 - 10mg mouth every 6 Rosi Magana 03/19/2018 Tablets hours if needed for pain; take for no more than 5 days Rosuvastatin Calcium take one tablet 30tabs E11.9 Leticia, 2017 - 5mg by mouth every Rosi Magana 06/10/2018 Tablets day to lower choloesterol and reduce risk of heart disease Naproxen take one tablet 60tabs M54.2 Leticia, 2017 - 500mg Tablets by mouth twice a Rosi Magana 04/09/2018 day as needed for neck pain, take with food PT For Neck Pain please evaluate Cherri2 Lteicia, 09/08/2017 - and treat, Rosi Magana 10/08/2017 instruct in hep, modalities prn. Naproxen Sodium as directed as Unknown 05/02/2017 - 220mg needed 11/02/2017 Tablets Nystatin apply to affected 30units Leticia, 02/02/2017 - [id number]/GM area(s) on penis Rosi Magana 02/25/2017 Cream three times a day as needed Nystatin-Triamcinolone apply to affected 30gm N48.1 Leticia, 01/29/2017 - areas on penis 3 Rosi Magana 02/25/2017 232898-3.1Unit/GM-% times a day as Cream needed until clear Lidocaine apply to the 35.440gm A07.0 Sopchafreddie, 01/26/2017 - 5% Ointment affected area Sai Foster 01/29/2017 three times a day for pain Fluconazole 1 by mouth once 1tabs A07.0 Nick, 01/21/2017 - 150mg Tablets Cristian, D.O. 01/22/2017 Lidocaine HCL apply to head of 30ml A07.0 [facility], 01/21/2017 - 2% Gel penis 4 times a Cristian D.O. 01/26/2017 day as needed for pain Clindamycin Phosphate apply 1 180ml A07.0 Nick, 01/21/2017 - 1% application Cristian, D.O. 01/26/2017 Lotion topically to affected area 2 times per day Doxycycline Hyclate take 1 tablet by 56tabs A69.20 Nick, 01/20/2017 - 100mg mouth 2 times per Cristian D.O. 01/30/[address] day for 28 days for lyme disease Cyclobenzaprine HCL 1 by mouth three 30tabs M54.2 Nick, 01/18/2017 - 10mg times a day as Cristian D.O. 01/28/2017 Tablets needed as needed for muscle spasms. Fluticasone Propionate 2 sprays into 16units J31.0 Silconorberto, 01/05/2017 - each nostril once Rosi Magana 01/28/2017 50mcg/Act Suspension daily for nasal congestion; stop using all other nasal sprays within 1 week of starting this Simvastatin take one tablet 30tabs E11.65 Leticia, 2016 - 20mg Tablets by mouth every Rosi Magana 01/18/2017 day to lower cholesterol E11.9 Nystatin apply to 30units B37.42 Chino Kelly, 10/09/2016 - [id number]/GM affected area(s) Rosi 10/19/2016 Cream on penis three times a day as needed Ibuprofen 1 cap by mouth 90tabs M25.50 Cristian Romero, 09/08/2016 - 800mg Tablets three times a D.O. 11/02/2017 day as needed M25.50 Rosuvastatin Calcium 1/2 by mouth every 15tabs E11.65 Leticia, 08/05/2016 - day to lower Rosi Magana 10/08/2016 20mg Tablets cholesterol and lower heart disease risk Atorvastatin Calcium 1 by mouth every 30tabs E11.65 Leticia, 05/06/2016 - day for cholesterol Rosi Magana 07/06/2016 20mg Tablets Ondansetron 1 by mouth every 4 15tabs R11.0 Leticia, 03/03/2016 - 4mg hours as needed for Rosi Magana 02/06/2018 Tablets Dispers nausea/vomiting R11.2 Tamsulosin HCL 1 pill daily 1/2 30caps R35.0 Chino Kelly, 02/03/2016 - hour after same M.DClayton 02/03/2016 0.4mg Capsules meal each day; for enlarged prostate; stop after 2 weeks if not helpful Terbinafine HCL 1 by mouth every 84tabs B35.1 Chino Kelly, 01/20/2016 - day for 12 wks; M.D. 02/24/2016 250mg Tablets need blood tests monthly (after 4wks and after 8wks) while taking this medication Naproxen 1 by mouth twice a 60tabs M25.50 Chino Kelly, 01/20/2016 - 500mg day as needed for M.DClayton 09/08/2016 Tablets neck and joint pain (to replace ibuprofen) M25.50 Ibuprofen 1 tablet up to 90tabs M25.50 Chino Kelly, 12/11/2015 - 800mg every 8 hours M.DClayton 01/20/2016 Tablets for pain M25.50 Sumatriptan 1 by mouth at 12tabs G43.009 Chino Kelly, 11/04/2015 - Succinate onset of M.D. 01/28/2017 50mg migraine; may Tablets repeat once after 2 hours if needed; max 3x/wk Lorazepam 1 by mouth three F41.9 Unknown 11/04/2015 - 1mg times a day as 12/29/2015 Tablets needed for anxiety Ciclopirox Olamine us as directed B35.1 Unknown 03/30/2015 - for nail fungus 01/20/2016 0.77% Suspension on toes Immunizations CPT Code Status Date Vaccine Lot # [id number] Given 09/09/2018 Influenza Virus Vaccine, Quadrivalent, Split, [id number] Preservative Free [id number] Given 08/10/2017 Influenza Virus Vaccine, Quadrivalent, Split, [id number] Preservative Free 12098 Given 05/26/2017 Adacel or Boostrix, TDaP 10513 Given 08/05/2016 Influenza Virus Vaccine, Quadrivalent, Split, [id number] Preservative Free 86023 Given 04/01/2016 Adacel or Boostrix, TDaP [id number] Vital Signs Date Vital Result Comment 04/29/2019 9:42am BP Systolic 120 mmHg BP Diastolic 76 mmHg Weight 241.00 lb 03/31/2019 2:44pm BP Systolic 118 mmHg BP Diastolic 78 mmHg Height 72 inches 6'0" Weight 238.00 lb BMI (Body Mass Index) 32.3 kg/m2 02/27/2019 10:20am BP Systolic 122 mmHg BP Diastolic 68 mmHg Weight 239.00 lb boots on 01/23/2019 10:26am BP Systolic 120 mmHg BP Diastolic 80 mmHg Weight 230.50 lb 12/20/2018 9:31am BP Systolic 118 mmHg BP [...] Test Result H/L Range Note Laboratory test 02/27/2019 In House Hemoglobin A1c 7.0 finding CBC Auto Diff 01/05/2019 [facility] White Blood 6.0 10^3/uL N 3.5- 10.8 [phone] Count Red Blood Count 4.57 10^6/uL N 4.00-5.40 Hemoglobin 13.9 g/dL Low 14.0-18.0 Hematocrit 40 % Low 42-52 Mean Corpuscular Volume 88 fL N 80-94 Mean Corpuscular Hemoglobin 30 pg N 27-31 Mean Corpuscular HGB Conc 35 g/dL N 31-36 Red Cell Distribution Width 13 % N 10.5-15 Platelet Count 122 10^3/uL Low 150-450 Mean Platelet Volume 8.4 fL N 7.4-10.4 Abs Neutrophils 4.2 10^3/uL N 1.5-7.7 Abs Lymphocytes 1.3 10^3/uL N 1.0-4.8 Abs Monocytes 0.4 10^3/uL N 0-0.8 Abs Eosinophils 0.1 10^3/uL N 0-0.6 Abs Basophils 0 10^3/uL N 0-0.2 Abs Nucleated RBC 0 10^3/uL Granulocyte % 69.8 % Lymphocyte % 22.0 % Monocyte % 6.0 % Eosinophil % 1.5 % Basophil % 0.7 % Nucleated Red Blood Cells % 0 Comp Metabolic Panel 01/05/2019 [facility] Sodium 136 mmol/L N 135- 145 [phone] Potassium 4.3 mmol/L N 3.5-5.0 Chloride 103 mmol/L N 101-111 Co2 Carbon Dioxide 27 mmol/L N 22-32 Anion Gap 6 mmol/L N 2-11 Glucose 243 mg/dL High 70-100 Blood Urea Nitrogen 13 mg/dL N 6-24 Creatinine 0.92 mg/dL N 0.67-1.17 BUN/Creatinine Ratio 14.1 N 8-20 Calcium 9.4 mg/dL N 8.6-10.3 Total Protein 6.2 g/dL Low 6.4-8.9 Albumin 4.2 g/dL N 3.2-5.2 Globulin 2.0 g/dL N 2-4 Albumin/Globulin Ratio 2.1 N 1-3 Total Bilirubin 1.10 mg/dL High 0.2-1.0 Alkaline Phosphatase 79 U/L N 34-104 Alt 49 U/L N 7-52 Ast 30 U/L N 13-39 Egfr Non- 85.1 >60 Egfr 103.0 >60 1 Laboratory test 11/16/2018 In House Hemoglobin A1c 6.4 finding Laboratory test 09/22/2018 [facility] Rapid Strep Negative Negative 2 finding [phone] Molecular Rapid Influenza A 09/22/2018 [facility] Influenza A NEGATIVE Negative 3 & B Molecular [phone] Molecular Influenza B Molecular NEGATIVE Negative CBC Auto Diff 09/22/2018 [facility] White Blood Count 8.9 10^3/uL N 3.5-10.8 [phone] Red Blood Count 5.19 10^6/uL N 4.00-5.40 [...] Cells % 0.1 Laboratory test finding 09/22/2018 [facility] Lactic Acid 1.4 mmol/L N 0.5-2.0 4 [phone] Comp Metabolic Panel 09/22/2018 [facility] Sodium 138 mmol/L N 135- 145 [phone] Potassium 4.6 mmol/L N 3.5-5.0 Chloride 103 [...] Egfr Non- 75.8 >60 Egfr 91.8 >60 5 Laboratory test 09/22/2018 [facility] C Reactive 1.37 mg/L N <8.01 finding [phone] Protein Laboratory test 09/22/2018 [facility] Rapid Strep A SEE RESULT 6 finding [phone] Request BELOW Rapid Influenza A B Antigen SEE RESULT BELOW 7 Urine Microalbumin 09/09/2018 [facility] Ur Microalbumin (mg/L) < 15.0 8 Random [phone] Urine Creatinine 119.44 mg/dL Urine Microalbumin/Creatinine TNP <31 9 Urine Drug Screen Inhouse 08/08/2018 In House Ua Cocaine - Ua Opiates - Ua Amphetamines - Urine Methanphetamines - Urine Benzodiazepines QN [place] - Urine Oxycodone QL - Laboratory test 08/08/2018 In House Hemoglobin A1c 6.3 finding CBC Auto Diff 08/02/2018 [facility] White Blood Count 6.4 10^3/uL N 3.5-10.8 [phone] Red Blood Count 4.28 10^6/uL N 4.00-5.40 [...] Blood Cells % 0 Comp Metabolic Panel 08/02/2018 [facility] Sodium 140 mmol/L N 135- 145 [phone] Potassium 3.8 mmol/L N 3.5-5.0 Chloride 107 [...] Egfr Non- 83.3 >60 Egfr 100.8 >60 10 Laboratory test 08/02/2018 [facility] Creatine 164 U/L N 10-223 finding [phone] Kinase(CK) CBC Auto Diff 05/28/2018 [facility] White Blood Count 7.4 N 3.5-10.8 [phone] 10^3/uL Red Blood Count 4.80 10^6/uL N 4.00-5.40 [...] Red Blood Cells % 0 Inr/Protime 05/28/2018 [facility] Inr 1.07 High 0.77-1.02 [phone] Laboratory test 05/28/2018 [facility] Partial 29.1 seconds N 26.0- 36.3 finding [phone] Thrombo Time PTT Lactic Acid 1.7 mmol/L N 0.5-2.0 11 Comp Metabolic Panel 05/28/2018 [facility] Sodium 141 mmol/L N 135- 145 [phone] Potassium 3.9 mmol/L N 3.5-5.0 Chloride 107 [...] Egfr Non- 75.0 >60 Egfr 90.7 >60 12 Laboratory test finding 05/28/2018 [facility] Lipase 150 U/L High 11.0-82.0 [phone] C Reactive Protein 10.78 mg/L High <8.01 Laboratory test 05/28/2018 [facility] Point of Care 189 mg/dL High 70 -100 13 finding [phone] Glucose Lipid Profile 05/09/2018 [facility] Triglycerides 155 mg/dL 14 (Trig/Chol/HDL) [phone] Cholesterol 129 mg/dL 15 HDL Cholesterol 42.8 mg/dL 16 LDL Cholesterol 55 mg/dL 17 Laboratory test finding 05/09/2018 [facility] Alt 58 U/L High 7-52 18 [phone] Laboratory test finding 05/09/2018 In House Hemoglobin A1c 6.9 Urine Drug Screen 04/09/2018 In House Ua Cocaine - Inhouse Ua Opiates - Ua Amphetamines - Urine Methanphetamines - Urine Benzodiazepines QN [place] + Urine Oxycodone QL - Laboratory test 02/18/2018 [facility] Troponin-I (TnI) 0.00 ng/mL < 0.04 finding [phone] Laboratory test 02/18/2018 [facility] Lactic Acid 1.2 mmol/L N 0.5- 2.0 19 finding [phone] Comp Metabolic 02/18/2018 [facility] Sodium 137 mmol/L N 133-145 Panel [phone] Potassium 3.9 mmol/L N 3.5-5.0 Chloride 102 [...] Egfr Non- 86.5 >60 Egfr 111.2 >60 20 Laboratory test 02/18/2018 [facility] Troponin-I (TnI) 0.00 ng/mL < 0.04 finding [phone] Laboratory test 01/07/2018 In House Hemoglobin A1c 6.2 finding Lipid Profile 2017 [facility] Triglycerides 126 mg/dL 21 (Trig/Chol/HDL) [phone] Cholesterol 145 mg/dL 22 HDL Cholesterol 42.1 mg/dL 23 LDL Cholesterol 78 mg/dL 24 Urine Microalbumin 2017 [facility] Ur Microalbumin < 15.0 mg/L Random [phone] (mg/L) Urine Creatinine 256.40 mg/dL Urine Microalbumin/Creatinine TNP ug/mg <31 25 Urine Drug Screen Inhouse 09/08/2017 In House Ua Cocaine - Ua Opiates - Ua Amphetamines - Urine Methanphetamines - Urine Benzodiazepines QN [place] - Urine Oxycodone QL - Laboratory test 09/08/2017 In House Hemoglobin A1c 5.8 finding Laboratory test 06/04/2017 In House Hemoglobin A1c 5.9 finding Laboratory test 02/26/2017 In House Hemoglobin A1c 6.8 finding Comp Metabolic Panel 01/21/2017 [facility] Sodium 134 mmol/L N 133- 145 [phone] Potassium 4.0 mmol/L N 3.5-5.0 Chloride 100 [...] 90.2 N >60 Egfr 116.1 N >60 26 Laboratory test 01/21/2017 [facility] Creatine 299 U/L High 10-223 finding [phone] Kinase(CK) Tick-Borne Panel 01/18/2017 [facility] Babesia microti Negative N Negative PCR Blood [phone] PCR Babesia ducani Negative N Negative Babesia divergens/Mo-1 Negative N Negative 27 Anaplasma phagocytophilum Negative N Negative Ehrlichia chaffeensis Negative N Negative Ehrlichia ewingii/canis Negative N Negative Ehrlichia muris-like Negative N Negative 28 B. miyamotoi PCR, B Negative N Negative 29 Laboratory test 01/18/2017 [facility] Folic Acid > 20.00 ng/mL N > 3.99 finding [phone] (Folate) C Reactive Protein 1.06 mg/L N < 5.00 30 Creatine Kinase(CK) 497 U/L High 10-223 Erythrocyte Sed Rate 6 mm/Hr N 0-20 Phosphorus 4.7 mg/dL N 2.5-5.0 Uric Acid 5.6 mg/dL N 4.4-7.6 Lyme Western Blot 01/18/2017 [facility] Lyme Disease IgG Negative N Negative [phone] Ab WB Lyme Disease IgG Bands Present p41, p23, kDa N Lyme Disease IgM Ab WB Positive N Negative Lyme Disease IgM Bands Present p41, p23, kDa N Lyme Disease Interpretation See Comment N 31 Laboratory test finding 01/18/2017 [facility] Magnesium 1.9 mg/dL N 1.9-2.7 [phone] TSH (Thyroid Stim Horm) 3.36 mcIU/mL N 0.34-5.60 Vitamin D Total 25(Oh) 24.3 ng/mL Low 30-50 Vitamin B12 882 pg/mL N 180-914 32 Comp Metabolic Panel 01/18/2017 [facility] Sodium 135 mmol/L N 133- 145 [phone] Potassium 3.9 mmol/L N 3.5-5.0 Chloride 101 [...] 80.7 N >60 Egfr 103.7 N >60 33 CBC Auto Diff 01/18/2017 [facility] White Blood Count 7.4 10^3/uL N 3.5-10.8 [phone] Red Blood Count 4.60 10^6/uL N 4.0-5.4 [...] Nucleated Red Blood Cells % 0 N Culture Urine Inhouse 01/18/2017 In House Colonies negative 34 Urine Micro Inhouse 01/18/2017 In House Ua WBC occ Ua RBC - Ua Casts 1 Ua Epi occ Ua Other - Ua Glucose - Ua Bilirubin - Ua Ketones - Ua Specific [place] 1.005 Ua Blood - Ua PH (omitted) Ua Protein - Ua Urobilinogen - Ua Nitrite - Ua Leukocytes - Rapid Influenza A 01/17/2017 [facility] Influenza A NEGATIVE N Negative 35 & B Molecular [phone] Molecular Influenza B Molecular NEGATIVE N Negative Laboratory 01/17/2017 [facility] Point of Care 131 mg/dL High 74-106 36 test finding [phone] Glucose Laboratory 01/15/2017 [facility] Urine Culture SEE RESULT 37, test finding [phone] And BELOW 38 Sensitivities Laboratory 01/15/2017 [facility] Point of Care 176 mg/dL High 74-106 39 test finding [phone] Glucose Laboratory 12/04/2016 In House Hemoglobin A1c 6.5 test finding Rapid 11/21/2016 [facility] Influenza A NEGATIVE N Negative 40 Influenza A & [phone] Molecular B Molecular Influenza B Molecular NEGATIVE N Negative Laboratory test 11/21/2016 [facility] Rapid Strep Negative N Negative 41 finding [phone] Molecular Laboratory test 11/21/2016 [facility] Rapid Influenza SEE RESULT 42 finding [phone] A B Antigen BELOW Rapid Strep A Request SEE RESULT BELOW 43 CBC Auto Diff 10/19/2016 [facility] White Blood Count 6.1 10^3/uL N 3.5-10.8 [phone] Red Blood Count 4.78 10^6/uL N 4.0-5.4 [...] % 0 N Comp Metabolic Panel 10/19/2016 [facility] Sodium 136 mmol/L N 133- 145 [phone] Potassium 4.0 mmol/L N 3.5-5.0 Chloride 104 [...] 94.3 N >60 Egfr 121.3 N >60 44 Laboratory test 10/19/2016 [facility] Lyme Disease Negative N Negative 45 finding [phone] Serology Basic Metabolic 10/05/2016 [facility] Sodium 134 mmol/L N 133-145 Panel [phone] Potassium 3.7 mmol/L N 3.5-5.0 Chloride 101 mmol/L N 101-111 Co2 Carbon Dioxide 27 mmol/L N 22-32 Anion Gap 6 mmol/L N 2-11 Glucose 164 mg/dL High 70-100 Blood Urea Nitrogen 19 mg/dL N 6-24 Creatinine 0.95 mg/dL N 0.67-1.17 BUN/Creatinine Ratio 20.0 N 8-20 Calcium 9.5 mg/dL N 8.6-10.3 Egfr Non- 82.9 N >60 Egfr 106.7 N >60 46 CBC Auto Diff 10/05/2016 [facility] White Blood Count 7.5 10^3/uL N 3.5-10.8 [phone] Red Blood Count 4.60 10^6/uL N 4.0-5.4 [...] Blood Cells % 0.2 N Laboratory test finding 09/08/2016 In House Hemoglobin A1c 6.3 Urine Drug Screen Inhouse 09/08/2016 In House Ua Cocaine - Ua Opiates - Ua Amphetamines - Urine Methanphetamines - Urine Benzodiazepines QN [place] - Urine Oxycodone QL - Laboratory test 07/09/2016 [facility] Surgical Pathology SEE RESULT 47, 48 finding [phone] BELOW Laboratory test 07/09/2016 [facility] Clotest SEE RESULT 49, 50 finding [phone] BELOW Laboratory test 06/03/2016 In House Hemoglobin A1c 6.4 finding Laboratory test 05/06/2016 In House Glucose 196 51 finding Quantitative Lipid Profile 04/08/2016 [facility] Triglycerides 252 mg/dL N 52 (Trig/Chol/HDL) [phone] Cholesterol 156 mg/dL N 53 HDL Cholesterol 29.6 mg/dL N 54 LDL Cholesterol 76 mg/dL N 55 Urine Microalbumin 04/08/2016 [facility] Ur Microalbumin < 5.0 mg/L N Random [phone] (mg/L) Urine Creatinine 240.05 mg/dL N Urine Microalbumin/Creatinine TNP ug/mg N <31 56 Laboratory test 04/08/2016 [facility] TSH (Thyroid 1.90 ?IU/mL N 0.34 -5.60 57 finding [phone] Stim Horm) Creatine Kinase(CK) 191 U/L N 10-223 58 Laboratory test 03/04/2016 [facility] Point of Care 127 mg/dL High 74 -106 59 finding [phone] Glucose Laboratory test 03/02/2016 In House Hemoglobin A1c 6.6 finding Urine Drug Screen 03/02/2016 In House Ua Cocaine - Inhouse Ua Opiates - Ua Amphetamines - Urine Methanphetamines - Urine Benzodiazepines QN [place] - Urine Oxycodone QL - CBC Auto Diff 02/28/2016 [facility] White Blood Count 5.5 10^3/uL N 3.5-10.8 [phone] Red Blood Count 4.72 10^6/uL N 4.0-5.4 [...] % 0.1 N Comp Metabolic Panel 02/28/2016 [facility] Sodium 136 mmol/L N 133- 145 [phone] Potassium 3.8 mmol/L N 3.5-5.0 Chloride 103 [...] 90.6 N >60 Egfr 116.5 N >60 60 Laboratory test finding 02/28/2016 [facility] Amylase 28 U/L Low 29- 103 [phone] Lipase 39 U/L N 11.0-82.0 C Reactive Protein 2.32 mg/L N < 5.00 61 Urine Micro Inhouse 02/18/2016 In House Ua WBC - 62 Ua RBC - Ua Casts - Ua Epi - Ua Other - Ua Glucose - Ua Bilirubin - Ua Ketones - Ua Specific [place] 1.010 Ua Blood - Ua PH 7.0 Ua Protein - Ua Urobilinogen - Ua Nitrite - Ua Leukocytes - Liver Function Panel 02/18/2016 [facility] Total Protein 6.8 g/dL N 6.4-8.9 [phone] Albumin 4.5 g/dL N 3.2-5.2 Globulin 2.3 g/dL N 2-4 Albumin/Globulin Ratio 2.0 N 1-3 Total Bilirubin 1.20 mg/dL High 0.2-1.0 Direct Bilirubin 0.20 mg/dL High 0.03-0.18 Indirect Bilirubin 1.0 mg/dL N 0.3-1.0 Alkaline Phosphatase 94 U/L N 34-104 Alt 56 U/L High 7-52 Ast 42 U/L High 13-39 Urine Drug Screen Inhouse 02/03/2016 In House Ua Cocaine - Ua Opiates - Ua Amphetamines - Urine Methanphetamines - Urine Benzodiazepines QN [place] - Urine Oxycodone QL - Urine Drug Screen Inhouse 01/20/2016 In House Ua Cocaine - Ua Opiates - Ua Amphetamines - Urine Methanphetamines - Urine Benzodiazepines QN [place] - Urine Oxycodone QL - Inr/Protime 12/30/2015 [facility] Inr 1.08 N 0.89-1.11 [phone] Laboratory test 12/30/2015 [facility] Hepatitis C Nonreactive N Nonreactive finding [phone] Antibody Hepatitis B Surface Ag Nonreactive N Nonreactive Iron & Iron Binding Capacity 12/30/2015 [facility] Iron 103 g/dL N 50-212 [phone] Unsaturated Iron Binding 342 g/dL N Total Iron Binding Capacity 445 g/dL N 250-450 % Iron Saturation 23 % N 15-55 Laboratory test finding 12/30/2015 [facility] Ceruloplasmin 15.9 mg/dL N 63 [phone] Endomysial Abs Negative N Negative 64 Ferritin 156.7 ng/mL N 24-336 CBC Auto Diff 12/30/2015 [facility] White Blood Count 6.7 10^3/uL N 3.5-10.8 [phone] Red Blood Count 4.96 10^6/uL N 4.0-5.4 [...] Cells % 0.2 N Laboratory test 12/30/2015 [facility] Smooth Muscle Negative N Negative 65 finding [phone] Antibody Katerina (Antinuclear Antibodies) Negative N Negative Comp Metabolic Panel 2015 [facility] Sodium 134 mmol/L N 133- 145 [phone] Potassium 3.5 mmol/L N 3.5-5.0 Chloride 101 [...] 81.9 N >60 Egfr 105.4 N >60 66 CBC Auto Diff 2015 [facility] White Blood Count 8.6 10^3/uL N 4.8-10.8 [phone] Red Blood Count 4.78 10^6/uL N 4.0-5.4 [...] % 0 N CSF Cell Count 2015 [facility] Body Fluid Appearance Clear N [phone] Body Fluid Color Colorless N CSF Tube # 4 N Body Fluid Volume 1.5 mL N Body Fluid WBC 1 N Body Fluid RBC 0 N Body Fluid Lymph 9 N Body Fluid [place] 5 N Body Fluid Total Cells Counted 14 N Body Fluid Comment (SEE NOTE) N 67 Fluid Reviewed By MD (SEE NOTE) N 68 Laboratory test finding 2015 [facility] CSF Glucose 70 mg/dL N 40-70 [phone] CSF Total Protein 38 mg/dL N 15-45 CSF Culture & Gram Stain SEE RESULT BELOW 69 CBC Auto Diff 11/02/2015 [facility] White Blood Count 8.8 10^3/uL N 4.8-10.8 [phone] Red Blood Count 4.58 10^6/uL N 4.0-5.4 [...] % 0 N Comp Metabolic Panel 11/02/2015 [facility] Sodium 137 mmol/L N 133- 145 [phone] Potassium 3.7 mmol/L N 3.5-5.0 Chloride 105 [...] 100.1 N >60 Egfr 128.7 N >60 70 Laboratory test 11/02/2015 [facility] C Reactive < 1.00 mg/L N < 5.00 71 finding [phone] Protein CBC Auto Diff 10/26/2015 [facility] White Blood 7.0 10^3/uL N 4.8- 10.8 [phone] Count Red Blood Count 4.68 10^6/uL N [...] % 0 N Comp Metabolic Panel 10/26/2015 [facility] Sodium 133 mmol/L N 133- 145 [phone] Chloride 100 mmol/L Low 101-111 Co2 Carbon [...] 87.5 N >60 Egfr 112.5 N >60 72 Potassium TNP mmol/L N 3.5-5.0 73 Anion Gap TNP mmol/L N 2-11 Ast TNP U/L N 13-39 74 Laboratory test finding 10/26/2015 [facility] Lipase 55 U/L N 11.0- 82.0 [phone] C Reactive Protein < 1.00 mg/L N < 5.00 75 Magnesium TNP mg/dL N 1.9-2.7 76 1 Because ethnic data is not always readily [...] 15-29 5 Kidney failure <15 (or dialysis) 2 Polishing Machine Operator: [id number] Polishing Machine Operator: [id number] 4 [facility] Severe Sepsis and Septic Shock Management Bundle Measure requires all lactic acids initially measuring >2.0 mmol/L be repeated. 5 Because ethnic data is not always readily [...] 15-29 5 Kidney failure <15 (or dialysis) 6 SEE RESULT BELOW Name: MARCELLO SAENZ : [address]: Nolan Melo MD Acct: [id number] Unit: [id number] AGE: 57 Location: ED Re09/22/18 SEX: M Status: REG ER SPEC: [id number] GABINO: 09/22/[address]: Darell HAWKINS REQ: [id number] RECD: 09/22/18 STATUS: ADIEL STAUFFER DR: Chino Melo MD _ SOURCE: THROAT SPDESC: ORDERED: Strep A Request Procedure Result Reported Site Rapid Strep A Request Final 09/22/181920 ML Specimen received for Rapid Strep A Molecular testing * ML - Main Lab . END OF REPORT DEPARTMENT OF PATHOLOGY, [address] [place] [address] Wilberto Crum M.D. Director [facility] # [id number] 7 SEE RESULT BELOW Name: MARCELLO SAENZ : [address]: Nolan Melo MD Acct: [id number] Unit: [id number] AGE: 57 Location: ED Re09/22/18 SEX: M Status: REG ER SPEC: [id number] GABINO: 09/22/[address]: Darell HAWKINS REQ: [id number] RECD: 09/22/18 STATUS: COMP ADINAHR DR: Chino Melo MD _ SOURCE: NASAL SPDES: ORDERED: Flu A B Request Procedure Result Reported Site Rapid Influenza A B Request Final 09/22/18- 192 ML Specimen received for Influenza A/B Molecular testing * ML - Main Lab . END OF REPORT DEPARTMENT OF PATHOLOGY, [address] [place] [address] Wilberto Crum M.D. Director [facility] # [id number] 9 Unable to calculate due to low microalbumin 10 Because ethnic data is not always [...] 5 Kidney failure <15 (or dialysis) 11 [facility] Severe Sepsis and Septic Shock Management Bundle Measure requires all lactic acids initially measuring >2.0 mmol/L be repeated. 12 Because ethnic data is not always readily [...] 15-29 5 Kidney failure <15 (or dialysis) 13 Polishing Machine Operator: [id number] Desirable: <150 Borderline High: 150-199 High: 200-499 Very High: >500 15 Desirable: <200 Borderline High: 200-239 High: >239 16 Low: <40 Desirable: 40-60 High: >60 17 Desirable: <100 Near Optimal: 100-129 Borderline High: 130-159 High: 160-189 Very High: >189 18 FASTING 12 HOUR 19 [facility] Severe Sepsis and Septic Shock Management Bundle Measure requires all lactic acids initially measuring >2.0 mmol/L be repeated. 20 Because ethnic data is not always readily [...] 15-29 5 Kidney failure <15 (or dialysis) 21 Desirable: <150 Borderline High: 150-199 High: 200-499 Very High: >500 22 Desirable: <200 Borderline High: 200-239 High: >239 23 Low: <40 Desirable: 40-60 High: >60 24 Desirable: <100 Near Optimal: 100-129 Borderline High: 130-159 High: 160-189 Very High: >189 25 Unable to calculate due to low microalbumin 26 Because ethnic data is not always [...] 5 Kidney failure <15 (or dialysis) 27 ADDITIONAL INFORMATION This test was developed and its performance characteristics determined by [facility] in a manner consistent with CLIA requirements. This test has not been cleared or approved by the U.S. Food and Drug Administration. 28 ADDITIONAL INFORMATION This test was developed and its performance characteristics determined by [facility] in a manner consistent with CLIA requirements. This test has not been cleared or approved by the U.S. Food and Drug Administration. 29 ADDITIONAL INFORMATION This test was developed and its performance characteristics determined by [facility] in a manner consistent with CLIA requirements. This test has not been cleared or approved by the U.S. Food and Drug Administration. Test Performed by: [facility] [place] [address] Distribution Center Manager: Ghassan Chavez II, M.D., Ph.D. 30 Acute inflammation: >10.00 31 Consistent with early infection with Borrelia burgdorferi. [...] screening test (e.g., EIA). Test Performed by: [facility] [place] [address] Distribution Center Manager: Ghassan Chavez II, M.D., Ph.D. 32 Normal Range 180 to 914 Indeterminate Range 145 to 180 Deficient Range <145 33 Because ethnic data is not always readily [...] 15-29 5 Kidney failure <15 (or dialysis) 34 void, clear, pale yellow 35 Polishing Machine Operator: [id number] [facility] 36 Polishing Machine Operator: [id number] [facility] 37 [id number] 38 SEE RESULT BELOW Name: MARCELLO SAENZ : [address]: Shira Apodaca MD Acct: [id number] Unit: [id number] AGE: 56 Location: [facility] Re01/15/17 SEX: M Status: DEP ER SPEC: [id number] GABINO: 01/15/[address] [facility] [address]: Shira Apodaca MD REQ: [id number] RECD: 01/16/17 STATUS: ADIEL STAUFFER DR: Chino Kelly MD _ SOURCE: URINE [facility]: ORDERED: Urine Culture COMMENTS: [id number] Procedure Result Reported Site Urine Culture Final 01/17/17- 1346 ML No Growth (<1,000 CFU/mL) * ML - MAIN LAB ([facility]) . END OF REPORT * ML=Testing performed at Main Lab DEPARTMENT OF PATHOLOGY, [address] [place] [address] Wilberto Crum M.D. Director [facility] # [id number] 39 Polishing Machine Operator: [id number] ANALILIA [place]STON 40 Polishing Machine Operator: INGRID Rene 41 Polishing Machine Operator: INGRID Rene 42 SEE RESULT BELOW Name: MARCELLO SAENZ : [address]: Darell Carroll MD Acct: [id number] Unit: [id number] AGE: 56 Location: ED Re11/21/16 SEX: M Status: REG ER SPEC: [id number] GABINO: 11/21/[address] [facility] [address]: Darell Carroll MD REQ: [id number] RECD: 11/21/16 STATUS: ADIEL STAUFFER DR: Chino Kelly MD _ SOURCE: NASAL SPDESC: ORDERED: Flu A B Request Procedure Result Reported Site Rapid Influenza A B Request Final 11/21/16- 229 ML Specimen received for Influenza A/B Molecular testing * ML - MAIN LAB ([facility]) . END OF REPORT * ML=Testing performed at Main Lab DEPARTMENT OF PATHOLOGY, [address] [place] [address] Wilberto Crum M.D. Director [facility] # [id number] 43 SEE RESULT BELOW Name: MARCELLO SAENZ : [address]: Darell Carroll MD Acct: [id number] Unit: [id number] AGE: 56 Location: ED Re11/21/16 SEX: M Status: REG ER SPEC: [id number] GABINO: 11/21/[address] [facility] [address]: Darell Carroll MD REQ: [id number] RECD: 11/21/16 STATUS: COMP OTHR DR: Chino Kelly MD _ SOURCE: THROAT SPDESC: ORDERED: Strep A Request Procedure Result Reported Site Rapid Strep A Request Final 11/21/16- 0230 ML Specimen received for Rapid Strep A Molecular testing * ML - [facility] ([facility]) . END OF REPORT * ML=Testing performed at Main Lab DEPARTMENT OF PATHOLOGY, [address] [place] [address] Wilberto Crum M.D. Director [facility] # [id number] 44 Because ethnic data is not always readily [...] 15-29 5 Kidney failure <15 (or dialysis) 45 Serologic response to B. burgdorferi infection is not detected, but cannot rule out early infection during which low or undetectable antibody levels to B. burgdorferi may be present. If clinically indicated, a new serum specimen should be submitted in 7-14 days. Test Performed by: [facility] - [address] [address] Distribution Center Manager: Ghassan Chavez II, M.D., Ph.D. 46 Because [...] 5 Kidney failure <15 (or dialysis) 47 [id number] 48 SEE RESULT BELOW Name: MARCELLO SAENZ : [address]: Kahlil Sauceda MD Acct: [id number] Unit: [id number] AGE: 55 Location: [facility] Re07/09/16 SEX: M Status: DEP REF SPEC: [id number] GABINO: 07/09/16-[address] [facility] [address]: Kahlil Sauceda MD REQ: [id number] RECD: 07/09/168728 STATUS: CRYSTAL STAUFFER DR: Chino Kelly MD _ ORDERED: LEVEL IV COMMENTS: [id number] FINAL DIAGNOSIS Colon, descending, biopsy: -- Tubular [...] (signature on file) Sara Henson MD 11/13 1430 END OF REPORT * ML=Testing performed at Main Lab DEPARTMENT OF PATHOLOGY, [address] [place] [address] Wilberto Crum M.D. Director [facility] # [id number] 50 SEE RESULT BELOW Name: MARCELLO SAENZ : [address]: Kahlil Sauceda MD Acct: [id number] Unit: [id number] AGE: 55 Location: [facility] Re07/09/16 SEX: M Status: REG REF SPEC: [id number] GABINO: 07/09/16-[address] [facility] [address]: Kahlil Sauceda MD REQ: [id number] RECD: 07/09/16 STATUS: ADEIL STAUFFER DR: Chino Kelly MD _ SOURCE: [facility]: ORDERED: Clotest COMMENTS: [id number] Procedure Result Reported Site Clotest Final 07/10/16- 0752 ML Clotest Negative * ML - MAIN LAB ([facility]) . END OF REPORT * ML=Testing performed at Main Lab DEPARTMENT OF PATHOLOGY, [address] [place] [address] Wilberto Crum M.D. Director [facility] # [id number] 51 Dr. Kelly aware 52 Desirable <150 Borderline high 150-199 High 200-499 Very High >500 53 Desirable <200 Borderline high 200-239 High >239 54 Low <40 Desirable: 40-60 High: >60 55 Desirable: <100 mg/dL Near Optimal: 100-129 mg/dL Borderline High: 130-159 mg/dL High: 160-189 mg/dL Very High: >189 mg/dL 56 Unable to calculate due to low microalbumin 57 FASTING 12 HOUR 58 FASTING 12 HOUR 59 Polishing Machine Operator: [id number] BRAUN 60 Because ethnic data is not always readily [...] 15-29 5 Kidney failure <15 (or dialysis) 61 Acute inflammation: >10.00 62 void, clear, yellow 63 REFERENCE VALUE 15.0 - 30.0 Test Performed by: [address] [address] Distribution Center Manager: Ghassan Chavez II, M.D., Ph.D. 64 Negative in normal individuals. May be negative in dermatitis herpatiformis or celiac disease patients adhering to a gluten free diet. ADDITIONAL INFORMATION Laboratory developed test. Test Performed by: [place] [address] Distribution Center Manager: Ghassan Chavez II, M.D., Ph.D. 65 Test Performed by: [facility] [place] [address] Distribution Center Manager: Ghassan Chavez II, M.D., Ph.D. 66 Because ethnic data is not always readily [...] 15-29 5 Kidney failure <15 (or dialysis) 67 Differential performed on concentrated smear. 68 No evidence of malignancy or acute inflammatory response. No microorganisms. Reviewed by Dr. Crum 69 SEE RESULT BELOW Name: MARCELLO SAENZ : [address]: Jem Peña MD Acct: [id number] Unit: [id number] AGE: 55 Location: ED Re11/03/15 SEX: M Status: DEP ER SPEC: [id number] GABINO: 11/03/[address]: Jem Peña MD REQ: [id number] RECD: 11/03/15 STATUS: ADIEL STAUFFER DR: Chino [...] performed at Main Lab DEPARTMENT OF PATHOLOGY, [address] [place] [address] Wilberto Crum M.D. Director [facility] # [id number] 70 Because ethnic data is not always readily [...] 15-29 5 Kidney failure <15 (or dialysis) 71 Acute inflammation: >10.00 72 Because ethnic data is not always readily [...] 15-29 5 Kidney failure <15 (or dialysis) 73 Unable to report test result due to hemolysis. 74 Unable to report test result due to hemolysis. 75 Acute inflammation: >10.00 76 Unable to report test result due to hemolysis. Procedures Date Code Description Status 10/17/2018 [id number] Diabetic Foot Exam Completed 10/19/2017 [id number] Diabetic Retinal Eye Exam Completed 05/03/2017 57675 Electrocardiogram Complete Completed 06/29/2016 [id number] Colonoscopy Completed Encounters Type Date Location Provider Dx Diagnosis Office Visit 03/31/2019 Main Office Chino Kelly F11.20 Opioid dependence, 2:00p M.DClayton uncomplicated M54.2 Cervicalgia E11.65 Type 2 diabetes mellitus with hyperglycemia Office Visit 02/27/2019 10:15a Main Office Chino Kelly E11.9 Type 2 diabetes M.D. mellitus without complications F11.20 Opioid dependence, uncomplicated R11.0 Nausea K21.9 Gastro-esophageal reflux disease without esophagitis E66.9 Obesity, unspecified E11.65 Type 2 diabetes mellitus with hyperglycemia Z91.11 Patient's noncompliance with dietary regimen Z68.32 Body mass index (BMI) 32.0-32.9, adult Office Visit 01/23/2019 10:15a Main Office Martell Kelly1.Ronel Opioid Chino lawton M.D. uncomplicated M54.2 Cervicalgia E11.9 Type 2 diabetes mellitus without complications Office Visit 12/20/2018 9:45a Main Office Martell Kelly1.Ronel Opioid Chino lawton M.D. uncomplicated M54.2 Cervicalgia [...] esophagitis Office Visit 10/17/2018 8:30a Main Office Martell Kelly1.20 Opioid Chino lawton M.D. uncomplicated M54.2 Cervicalgia E11.9 Type 2 diabetes mellitus without complications Z71.51 Drug abuse counseling and surveillance of drug abuser R11.0 Nausea K21.9 Gastro-esophageal reflux disease without esophagitis Office Visit 09/09/2018 11:45a Main Office Leticia F11.20 Opioid dependenceChino M.D. uncomplicated M54.2 Cervicalgia E11.9 Type 2 diabetes mellitus without complications Z71.51 Drug abuse counseling and surveillance of drug abuser Z23 Encounter for immunization Office Visit 08/08/2018 11:45a Main Office Martell Kelly1.20 Opioid dependenceChino M.D. uncomplicated M54.2 Cervicalgia E11.9 Type 2 diabetes mellitus without complications Z71.51 Drug abuse counseling and surveillance of drug abuser Office Visit 07/11/2018 4:30p Main Office Martell Kelly1.20 Opioid dependenceChino M.D. uncomplicated E11.9 Type 2 diabetes mellitus without complications G43.009 Migraine w/o aura, not intractable, w/o status migrainosus Office Visit 06/08/2018 11:45a Main Office Martell Kelly1.20 Opioid dependenceChino M.D. uncomplicated G43.009 Migraine w/o aura, not intractable, w/o status migrainosus E11.9 Type 2 diabetes mellitus without complications S92.515A Nondisp fx of proximal phalanx of left lesser toe(s), init Office Visit 05/09/2018 9:30a Main Office Chino Kelly E11.9 Type 2 diabetes M.D. mellitus without complications F11.20 Opioid dependence, uncomplicated G43.009 Migraine w/o aura, not intractable, w/o status migrainosus Office Visit 04/09/2018 9:45a Main Office Martell Kelly1.20 Opioid dependenceChino M.D. uncomplicated E11.9 Type 2 diabetes mellitus without complications Z23 Encounter for immunization M25.50 Pain in unspecified joint M54.2 Cervicalgia Z79.899 Other detention (current) drug therapy Office Visit 03/14/2018 10:15a Main Office Martell Kelly1.Ronel Opioid dependenceChino M.D. uncomplicated E11.9 Type 2 diabetes mellitus without complications K08.9 Disorder of teeth and supporting structures, unspecified Office Visit 02/07/2018 10:15a Main Office Martell Kelly1.20 Opioid dependenceChino M.D. uncomplicated E11.9 Type 2 diabetes mellitus without complications Office Visit 01/07/2018 2:00p Main Office Griffin Kelly20 Opioid Chino lawton M.D. uncomplicated M54.2 Cervicalgia E11.9 Type 2 diabetes mellitus without complications Office Visit 12/06/2017 11:45a Main Office Leticia F11.20 Opioid dependenceChino M.D. uncomplicated E11.9 Type 2 diabetes mellitus without complications S06.0x1D Concussion w Loc of 30 minutes or less, subs Office Visit 2017 2:30p Main Office Leticia F11.20 Opioid Chino lawton [...] 08/10/2017 9:45a Main Office Leticia F11.20 Opioid dependenceChino M.D. uncomplicated R11.0 Nausea Z41.8 [facility] En[facility] for immunization Office Visit 07/07/2017 11:30a Main Office Leticia F11.20 Opioid Chino lawton M.D. uncomplicated E11.9 Type 2 diabetes mellitus without complications Office Visit 06/04/2017 10:15a Main Office Chino Kelly E11.9 Type 2 diabetes M.D. mellitus without complications F11.20 Opioid dependence, uncomplicated L91.8 Other hypertrophic disorders of the skin Office Visit 05/03/2017 11:00a Main Office Leticia F11Jeffry Opioid Chino lawton M.D. uncomplicated L72.3 Sebaceous cyst E11.9 Type 2 diabetes mellitus without complications Office Visit 03/30/2017 10:00a Main Office Leticia F11Jeffry Opioid Chino lawton M.D. uncomplicated M54.2 Cervicalgia [...] D.O. Office Visit 01/18/2017 9:45a Main Office Cristian Romero, R35.0 Frequency of D.O. micturition R25.2 Cramp and spasm M54.2 Cervicalgia G43.119 Migraine with aura, intractable, without status migrainosus R53.83 Other fatigue Office Visit 01/05/2017 9:30a Main Office Leticia F11.20 Opioid dependence, Rosi Magana uncomplicated Z71.51 Drug abuse counseling and surveillance of drug abuser J31.0 Chronic rhinitis R25.2 Cramp and spasm H10.213 Acute toxic conjunctivitis, bilateral Office Visit 12/04/2016 9:30a Main Office Chino Kelly, E11.9 Type 2 diabetes M.D. mellitus without complications F11.20 Opioid dependence, uncomplicated R11.0 Nausea G43.009 Migraine w/o aura, not intractable, w/o status migrainosus Z71.51 Drug abuse counseling and surveillance of drug abuser Office Visit 2016 9:30a Main Office Leticia F11.20 Opioid jered, Rosi Magana uncomplicated R11.0 Nausea E11.9 Type 2 diabetes mellitus without complications G47.33 Obstructive sleep apnea (adult) (pediatric) G47.00 Insomnia, unspecified Office Visit 10/09/2016 9:30a Main Office Chino Kelly B37.42 Candidal balanitis M.DClayton F11.20 Opioid dependence, uncomplicated K21.9 Gastro-esophageal reflux [...] 2:30p Main Office Leticia F11.20 Opioid dependence, Rosi Magana uncomplicated E11.65 Type 2 diabetes mellitus with [...] migrainosus Office Visit 06/03/2016 4:15p Main Office Leticia E11.65 Type 2 diabetes Rosi Magana mellitus with hyperglycemia E66.9 Obesity, unspecified F11.20 Opioid dependence, uncomplicated G47.33 Obstructive sleep apnea (adult) (pediatric) S92.355D Nondisp fx of 5th metatarsal bone, l ft, 7thD Office Visit 05/06/2016 11:15a Main Office Leticia E11.65 Type 2 diabetes Rosi Magana mellitus with [...] immunization Office Visit 03/02/2016 11:15a Main Office Martell Kelly1.20 Opioid dependenceChino M.D. uncomplicated K76.0 Fatty (change [...] Office Visit 01/20/2016 11:00a Main Office Martell Kelly1.20 Opioid dependenceChino M.D. uncomplicated B35.1 Tinea unguium M25.50 Pain in unspecified joint G43.009 Migraine w/o aura, not intractable, w/o status migrainosus Z51.81 Encounter for therapeutic drug level monitoring Office Visit 12/30/2015 11:30a Main Office Leticia F11.20 Opioid Chino lawton M.D. uncomplicated M54.2 Cervicalgia M54.5 Low back pain F41.9 Anxiety disorder, unspecified R74.0 Nonspec elev of levels of transamns & lactic acid dehydrgnse Office Visit 11/27/2015 12:55p Main Office Leticia F11.20 Opioid dependenceChino M.D. uncomplicated M54.5 Low back pain F41.9 Anxiety disorder, unspecified R74.0 Nonspec elev of levels of transamns & lactic acid dehydrgnse E80.7 Disorder of bilirubin metabolism, unspecified G93.0 Cerebral cysts M54.2 Cervicalgia Plan of Treatment 04/29/2019 - Chino Kelly M.D.E11.65 Type 2 diabetes mellitus with hyperglycemiaComments:Encouraged re seeing ophtho. UNfortunately he needs to put it on the back burner as noted above. He will try and go this summer.Follow up:Don't forget to schedule an appointment to see the retail chain store area supervisor, Dr Pravin Clement, when you can.E11.9 Type 2 diabetes mellitus without niixmntgtwpyrN93.20 Opioid dependence, uncomplicatedNew Orders:Urine Drug Screen Inhouse, Ordered: 04/29/19Comments:Per [facility]-stop he last filled his Suboxone Rx on 04/15, and prior to that on 03/07. He had a few extra to gt him through and also "borrowed a couple" form a friend until he was able to fill his Rx. I advised him he may not be able to fill Rx again until 05/15.Follow up: RTO 1 month.R11.0 BwyujzF71.9 Gastro-esophageal reflux disease without esophagitis
[2019-05-07] MEDS ORDERED: Ketorolac INJ* 30 MG/ML 1 ML VIAL IV PUSH ONE (22:46)
[2019-05-07] MEDS ORDERED: Metoclopramide IV* 5 MG/ML 2 ML VIAL IV ONE (22:46)
[2019-05-07] MEDS ORDERED: diPHENhydraMINE IV* 50 MG/ML 1 ml VIAL (BENADRYL) SLOW PUSH ONE (22:47)
[2019-05-07] MEDS ORDERED: NS 0.9% 1000 ML** 1,000 ML IV ONE (22:47)
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
[2019-05-08 01:27] VITALS: BP 99/58
== END 2019-05-08 01:26 | disposition home or self-care (01) ==
LOC: ED 19:56
DX: R51 Headache (principal); M54.2 Cervicalgia; R11.0 Nausea; R73.03 Prediabetes; G89.29 Other chronic pain; M54.5 Low back pain; Z87.820 Personal history of traumatic brain injury; Z98.61 Coronary angioplasty status; Z88.5 Allergy status to narcotic agent; Z88.1 Allergy status to other antibiotic agents; Z91.030 Bee allergy status; Z82.49 Family history of ischemic heart disease and other diseases of the circulatory system; Z87.891 Personal history of nicotine dependence
CPT/HCPCS: 96361; 96374; 96375; 99285; J1200; J1885; J2765

== ENCOUNTER 2019-05-19 16:19 | Emergency (ER) | payer OTHER ==
[2019-05-19] MEDS ORDERED: NS 0.9% 1000 ML** 1,000 ML IV ONE ×2 (17:05→17:15)
[2019-05-19] MEDS ORDERED: Metoclopramide IV* 5 MG/ML 2 ML VIAL IV ONE (17:05)
[2019-05-19] MEDS ORDERED: diPHENhydraMINE IV* 50 MG/ML 1 ml VIAL (BENADRYL) IM ONE (17:05)
[2019-05-19] MEDS ORDERED: Morphine 4 MG/ML VIAL (1 ml) 4 MG/ML VIAL IV ONE (17:05)
[2019-05-19 17:24] LABS: ABS Eosinophils 0.1 10^3/ul (0-0.6); ABS Lymphocytes 0.9 10^3/ul (1.0-4.8); ABS Monocytes 0.4 10^3/ul (0-0.8); ABS Neutrophils 5.3 10^3/ul (1.5-7.7); Eosinophil % 1.4 %; Hematocrit 41 % (42-52); Hemoglobin 14.5 g/dL (14.0-18.0); Lymphocyte % 13.7 %; Mean Corpuscular HGB Conc 36 g/dL (31-36); Mean Corpuscular Hemoglobin 31 pg (27-31); Mean Corpuscular Volume 88 fL (80-94); Mean Platelet Volume 8.4 fL (7.4-10.4); Nucleated Red Blood Cells % 0.1; Platelet Count 109 10^3/uL (150-450); Red Blood Count 4.63 10^6 /uL (4.18-5.48); Red Cell Distribution Width 14 % (10-15); White Blood Count 6.7 10^3/uL (3.5-10.8)
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
[2019-05-19 17:41] LABS: Albumin 4.5 g/dL (3.2-5.2); Albumin/Globulin Ratio 1.9 (1-3); BUN/Creatinine Ratio 16.7 (8-20); Calcium 10.2 mg/dL (8.6-10.3); EGFR African American 85.6 (>60); EGFR Non-African American 70.7 (>60); Globulin 2.4 g/dL (2-4); Potassium 4.5 mmol/L (3.5-5.0); Total Bilirubin 1.6 mg/dL (0.2-1.0); Total Protein 6.9 g/dL (6.4-8.9)
[2019-05-19] MEDS ORDERED: Ketorolac INJ* 30 MG/ML 1 ML VIAL IV PUSH ONE (18:07)
[2019-05-19 19:32] LABS: Erythrocyte Sed Rate 3 mm/Hr (0-19)
--- NOTE | 2019-05-19 19:40 | ED ---
Progress - Progress Note Progress Note: Patient is received as a sign-out from Dr. Ho to Dr. Carranza at 1900 05/19/19 shift change pending improvement of this patient's DYSON and disposition. 2153 - Patient reports improvement in Sx, he will be discharged to home and follow up with PCP. He is agreeable with this. Re-Evaluation - Re-Evaluation First Eval Re-Evaluation Time: 21:54 Change: Improved Comment: 2153 - Patient reports improvement in Sx, he will be discharged to home and follow up with PCP. He is agreeable with this. Course/Dx - Course Course Of Treatment: Patient is received as a sign-out from Dr. Ho to Dr. Carranza at 1900 05/19/19 shift change pending improvement of this patient's DYSON and disposition. 2153 - Patient reports improvement in Sx, he will be discharged to home and follow up with PCP. He is agreeable with this. - Diagnoses Provider Diagnoses: Headache Discharge - Sign-Out/Discharge Documenting (check all that apply): Patient Departure - discharge Patient Received Moderate/Deep Sedation with Procedure: No - Discharge Plan Condition: Improved Disposition: HOME Patient Education Materials: General Headache (ED) Referrals: Chino Kelly MD [Primary Care Provider] - 3 Days Additional Instructions: Follow up with your primary care provider in 2-3 days. RETURN TO THE EMERGENCY DEPARTMENT FOR ANY NEW OR WORSENING SYMPTOMS. - Billing Disposition and Condition Condition: IMPROVED Disposition: Home - Attestation Statements Document Initiated by Mir: Yes Documenting Scribe: NITA LITTLE Provider For Whom Mir is Documenting (Include Credential): ANGELICA CARRANZA MD Scribe Attestation: INITA, scribed for ANGELICA CARRANZA MD on 05/20/19 at 0528. Scribe Documentation Reviewed: Yes Provider Attestation: The documentation as recorded by the NITA dong accurately reflects the service I personally performed and the decisions made by me, ANGELICA CARRANZA MD Status of Scribe Document: Viewed
[2019-05-19 22:28] VITALS: BP 133/83
== END 2019-05-19 22:28 | disposition home or self-care (01) ==
LOC: ED 16:19
DX: R51 Headache (principal); R11.2 Nausea with vomiting, unspecified; L98.8 Other specified disorders of the skin and subcutaneous tissue; M25.539 Pain in unspecified wrist; R25.2 Cramp and spasm; H57.10 Ocular pain, unspecified eye; R73.03 Prediabetes; Z98.61 Coronary angioplasty status; Z87.820 Personal history of traumatic brain injury; Z88.5 Allergy status to narcotic agent; Z88.1 Allergy status to other antibiotic agents; Z91.030 Bee allergy status; Z87.891 Personal history of nicotine dependence
CPT/HCPCS: 36415; 70450; 80053; 82375; 85025; 85652; 96361; 96372; 96374; 96375; 99283; J1200; J1885; J2270; J2765

== ENCOUNTER → 2019-05-20 16:21 | Emergency (ER) | payer OTHER ==
[~2019-05-20 16:21] MED LIST changes: +Ketorolac INJ* 30 MG/ML 1 ML VIAL IV ONE; -Ketorolac INJ* 60 MG/2 ML VIAL IM ONE; +Metoclopramide IV* 5 MG/ML 2 ML VIAL IV ONE; +NS 0.9% 1000 ML** 1,000 ML IV ONE; +diPHENhydraMINE IV* 50 MG/ML 1 ml VIAL (BENADRYL) IV ONE
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
[2019-05-20 17:16] LABS: ABS Eosinophils 0.1 10^3/ul (0-0.6); ABS Monocytes 0.5 10^3/ul (0-0.8); ABS Neutrophils 5.1 10^3/ul (1.5-7.7); Eosinophil % 1.3 %; Hematocrit 39 % (42-52); Hemoglobin 13.7 g/dL (14.0-18.0); Lymphocyte % 14.6 %; Mean Corpuscular HGB Conc 35 g/dL (31-36); Mean Corpuscular Hemoglobin 31 pg (27-31); Mean Corpuscular Volume 89 fL (80-94); Nucleated Red Blood Cells % 0.1; Platelet Count 109 10^3/uL (150-450); Red Blood Count 4.36 10^6 /uL (4.18-5.48); Red Cell Distribution Width 14 % (10-15); White Blood Count 6.7 10^3/uL (3.5-10.8)
[2019-05-20 17:33] LABS: Albumin 4.2 g/dL (3.2-5.2); Albumin/Globulin Ratio 1.9 (1-3); BUN/Creatinine Ratio 15.7 (8-20); C Reactive Protein 1.29 mg/L (<8.01); Calcium 9.4 mg/dL (8.6-10.3); EGFR African American 91.4 (>60); EGFR Non-African American 75.5 (>60); Globulin 2.2 g/dL (2-4); Potassium 3.7 mmol/L (3.5-5.0); Total Bilirubin 1.6 mg/dL (0.2-1.0); Total Protein 6.4 g/dL (6.4-8.9)
[2019-05-20 21:39] VITALS: BP 134/72
== END | disposition home or self-care (01) ==
LOC: ED 16:21
DX: R51 Headache (principal); E86.0 Dehydration; Z87.891 Personal history of nicotine dependence
CPT/HCPCS: 36415; 80053; 85025; 86140; 96361; 96374; 96375; 99283; J1200; J1885; J2765

== ENCOUNTER 2019-09-10 13:59 | Emergency (ER) | payer OTHER ==
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
[2019-09-10] MEDS ORDERED: Ketorolac INJ* 30 MG/ML 1 ML VIAL IM ONE (15:32)
[2019-09-10 15:52] LABS: ABS Eosinophils 0.1 10^3/ul (0-0.6); ABS Lymphocytes 1.4 10^3/ul (1.0-4.8); ABS Monocytes 0.4 10^3/ul (0-0.8); ABS Neutrophils 3.8 10^3/ul (1.5-7.7); Eosinophil % 1.9 %; Hematocrit 40 % (42-52); Hemoglobin 14.2 g/dL (14.0-18.0); Lymphocyte % 23.4 %; Mean Corpuscular HGB Conc 35 g/dL (31-36); Mean Corpuscular Hemoglobin 31 pg (27-31); Mean Corpuscular Volume 89 fL (80-94); Mean Platelet Volume 8.4 fL (7.4-10.4); Platelet Count 114 10^3/uL (150-450); Red Blood Count 4.55 10^6 /uL (4.18-5.48); Red Cell Distribution Width 14 % (10-15); White Blood Count 5.8 10^3/uL (3.5-10.8)
[2019-09-10 16:08] LABS: Albumin/Globulin Ratio 1.7 (1-3); BUN/Creatinine Ratio 15.6 (8-20); C Reactive Protein 1.71 mg/L (<8.01); Calcium 9.4 mg/dL (8.6-10.3); EGFR African American 105.6 (>60); EGFR Non-African American 87.3 (>60); Globulin 2.3 g/dL (2-4); Total Bilirubin 0.9 mg/dL (0.2-1.0); Total Protein 6.3 g/dL (6.4-8.9)
[2019-09-10 16:52] LABS: RBC Parasite Smear No Parasites Seen (No Parasite)
[2019-09-10 17:22] VITALS: BP 120/67
[2019-09-12 17:39] LABS: Anaplasma phagocytophilum Negative (Negative); Ehrlichia chaffeensis Negative (Negative); Ehrlichia ewingii/canis Negative (Negative); Ehrlichia muris eauclairensis Negative (Negative)
== END 2019-09-10 17:21 | disposition home or self-care (01) ==
LOC: ED 13:59
DX: S80.262A Insect bite (nonvenomous), left knee, initial encounter (principal); W57.XXXA Bitten or stung by nonvenomous insect and other nonvenomous arthropods, initial encounter; Y92.9 Unspecified place or not applicable; R53.83 Other fatigue; R11.2 Nausea with vomiting, unspecified; M79.10 Myalgia, unspecified site; R73.03 Prediabetes; R03.0 Elevated blood-pressure reading, without diagnosis of hypertension; R74.0 Nonspecific elevation of levels of transaminase and lactic acid dehydrogenase [LDH]; G89.29 Other chronic pain; M54.5 Low back pain; Z88.5 Allergy status to narcotic agent; Z88.1 Allergy status to other antibiotic agents; Z91.030 Bee allergy status; Z87.891 Personal history of nicotine dependence
CPT/HCPCS: 36415; 80053; 85025; 86140; 86618; 87015; 87207; 87798; 96372; 99282; J1885

== ENCOUNTER 2019-09-14 11:15 | Emergency (ER) | payer OTHER ==
[2019-09-14] MEDS ORDERED: Nitroglycerin TAB 0.4 MG* 0.4 MG TAB SL ONE (11:46)
[2019-09-14] MEDS ORDERED: Aspirin 81 mg CHEW TAB* 81 MG TAB.CHEW PO ONE (11:46)
[2019-09-14] MEDS ORDERED: Cyclobenzaprine TAB* 10 MG PO ONE (11:55)
[2019-09-14 12:11] LABS: ABS Basophils 0.1 10^3/ul (0-0.2); ABS Eosinophils 0.1 10^3/ul (0-0.6); ABS Lymphocytes 1.9 10^3/ul (1.0-4.8); ABS Monocytes 0.5 10^3/ul (0-0.8); ABS Neutrophils 5.1 10^3/ul (1.5-7.7); Eosinophil % 1.8 %; Hematocrit 46 % (42-52); Hemoglobin 15.8 g/dL (14.0-18.0); Lymphocyte % 24.8 %; Mean Corpuscular HGB Conc 35 g/dL (31-36); Mean Corpuscular Hemoglobin 31 pg (27-31); Mean Corpuscular Volume 89 fL (80-94); Nucleated Red Blood Cells % 0.1; Platelet Count 131 10^3/uL (150-450); Red Blood Count 5.13 10^6 /uL (4.18-5.48); Red Cell Distribution Width 14 % (10-15); White Blood Count 7.9 10^3/uL (3.5-10.8)
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
[2019-09-14 12:21] LABS: INR 1.15 (0.82-1.09)
[2019-09-14] MEDS ORDERED: NS 0.9% 1000 ML** 1,000 ML IV ONE (14:24)
[2019-09-14 14:25] LABS: Albumin 4.5 g/dL (3.2-5.2); Calcium 9.8 mg/dL (8.6-10.3); Potassium 4.2 mmol/L (3.5-5.0); Total Bilirubin 1.5 mg/dL (0.2-1.0)
[2019-09-14 14:31] LABS: Albumin/Globulin Ratio 1.6 (1-3); BUN/Creatinine Ratio 21.2 (8-20); EGFR African American 94.6 (>60); EGFR Non-African American 78.2 (>60); Globulin 2.8 g/dL (2-4); Total Protein 7.3 g/dL (6.4-8.9)
[2019-09-14 16:25] VITALS: BP 120/79
== END 2019-09-14 16:29 | disposition home or self-care (01) ==
LOC: ED 11:15
DX: R07.89 Other chest pain (principal); R10.9 Unspecified abdominal pain; R25.2 Cramp and spasm; E86.0 Dehydration; Z88.5 Allergy status to narcotic agent; Z88.1 Allergy status to other antibiotic agents; Z91.030 Bee allergy status; Z87.891 Personal history of nicotine dependence
CPT/HCPCS: 36415; 71046; 80053; 83735; 84484; 85025; 85379; 85610; 93005; 96360; 99283; A9270-GY

== ENCOUNTER 2019-09-16 10:13 | Emergency (ER) | payer OTHER ==
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
[2019-09-16] MEDS ORDERED: NS 0.9% 1000 ML** 1,000 ML IV ONE ×2 (10:34→14:22)
[2019-09-16 11:06] LABS: ABS Basophils 0.1 10^3/ul (0-0.2); ABS Eosinophils 0.1 10^3/ul (0-0.6); ABS Lymphocytes 1.8 10^3/ul (1.0-4.8); ABS Monocytes 0.5 10^3/ul (0-0.8); ABS Neutrophils 4.2 10^3/ul (1.5-7.7); Eosinophil % 2.1 %; Hematocrit 42 % (42-52); Hemoglobin 14.7 g/dL (14.0-18.0); Lymphocyte % 27.2 %; Mean Corpuscular HGB Conc 35 g/dL (31-36); Mean Corpuscular Hemoglobin 31 pg (27-31); Mean Corpuscular Volume 89 fL (80-94); Mean Platelet Volume 8.2 fL (7.4-10.4); Platelet Count 120 10^3/uL (150-450); Red Blood Count 4.77 10^6 /uL (4.18-5.48); Red Cell Distribution Width 14 % (10-15); White Blood Count 6.8 10^3/uL (3.5-10.8)
[2019-09-16 11:18] LABS: Albumin 4.2 g/dL (3.2-5.2); Albumin/Globulin Ratio 1.7 (1-3); BUN/Creatinine Ratio 16.5 (8-20); Calcium 9.4 mg/dL (8.6-10.3); EGFR African American 104.3 (>60); EGFR Non-African American 86.2 (>60); Globulin 2.5 g/dL (2-4); Potassium 3.8 mmol/L (3.5-5.0); Total Bilirubin 1.1 mg/dL (0.2-1.0); Total Protein 6.7 g/dL (6.4-8.9)
[2019-09-16 11:20] LABS: Troponin I 0.01 ng/mL (<0.04)
[2019-09-16 12:49] LABS: Urine Appearance Clear; Urine Bilirubin Negative (Negative); Urine Blood Negative (Negative); Urine Color Yellow; Urine Glucose 1+(50 mg/dL) (Negative); Urine Ketones Negative (Negative); Urine Nitrite Negative (Negative); Urine Protein Negative (Negative); Urine Specific Gravity 1.008 (1.010-1.030); Urine Urobilinogen Negative (Negative)
[2019-09-16 17:31] VITALS: BP 135/92
== END 2019-09-16 17:30 | disposition home or self-care (01) ==
LOC: ED 10:13
DX: R07.9 Chest pain, unspecified (principal); E11.9 Type 2 diabetes mellitus without complications; K21.9 Gastro-esophageal reflux disease without esophagitis; F32.9 Major depressive disorder, single episode, unspecified; Z87.891 Personal history of nicotine dependence; Z88.1 Allergy status to other antibiotic agents; Z88.5 Allergy status to narcotic agent; Z79.899 Other long term (current) drug therapy
CPT/HCPCS: 36415; 76705; 80053; 81003; 83605; 83690; 84484; 85025; 93005; 96360; 96361; 99284

== ENCOUNTER 2019-09-25 15:14 | Emergency (ER) | payer OTHER ==
[2019-09-25 15:26] VITALS: BP 108/84
[2019-09-25] MEDS ORDERED: NS 0.9% 1000 ML** 2,000 ML IV ONE (16:28)
[2019-09-25] MEDS ORDERED: diPHENhydraMINE IV* 50 MG/ML 1 ml VIAL (BENADRYL) IV ONE (16:28)
[2019-09-25] MEDS ORDERED: PROCHLORPERAZINE INJ 5 MG/ML 2 ML VIAL IV ONE (16:28)
[2019-09-25] MEDS ORDERED: Ketorolac INJ* 30 MG/ML 1 ML VIAL IV PUSH ONE (16:28)
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
== END 2019-09-25 18:10 | disposition left against medical advice (07) ==
LOC: ED 15:14
DX: R51 Headache (principal); K21.9 Gastro-esophageal reflux disease without esophagitis; F32.9 Major depressive disorder, single episode, unspecified; Z87.891 Personal history of nicotine dependence; Z88.1 Allergy status to other antibiotic agents; Z88.5 Allergy status to narcotic agent
CPT/HCPCS: 96361; 96374; 96375; 99282; J0780; J1200; J1885

== ENCOUNTER 2019-11-12 18:42 | Emergency (ER) | payer OTHER ==
[2019-11-12] MEDS ORDERED: Ondansetron ODT TAB* 4 MG SL ONE (19:05)
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
[2019-11-12 22:22] VITALS: BP 102/64
== END 2019-11-12 22:18 | disposition home or self-care (01) ==
LOC: ED 18:42
DX: R11.2 Nausea with vomiting, unspecified (principal); Z87.891 Personal history of nicotine dependence; K21.9 Gastro-esophageal reflux disease without esophagitis; R73.03 Prediabetes
CPT/HCPCS: 99282; A9270-GY

== ENCOUNTER 2019-12-24 12:07 | Emergency (ER) | payer OTHER ==
[2019-12-24] MEDS ORDERED: NS 0.9% 1000 ML** 1,000 ML IV ONE ×2 (12:57→14:32)
[2019-12-24] MEDS ORDERED: Ondansetron INJ* 2 MG/ML VIAL IV ONE (13:08)
[2019-12-24] MEDS ORDERED: Ibuprofen TAB* 600 MG PO ONE (14:11)
[2019-12-24] MEDS ORDERED: Metoclopramide IV* 5 MG/ML 2 ML VIAL IV ONE (14:33)
[2019-12-24] MEDS: Acetaminophen TAB* 325 MG PO ONE ×2 (14:52→16:11)
[2019-12-24] MEDS ORDERED: Ketorolac INJ* 30 MG/ML 1 ML VIAL IV ONE (15:09)
[2019-12-24 15:58] LABS: Influenza A Molecular NEGATIVE (Negative); Influenza B Molecular NEGATIVE (Negative)
[2019-12-24 17:43] VITALS: BP 116/73
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
== END 2019-12-24 17:40 | disposition home or self-care (01) ==
LOC: ED 12:07
DX: G43.909 Migraine, unspecified, not intractable, without status migrainosus (principal); Z88.1 Allergy status to other antibiotic agents; Z88.5 Allergy status to narcotic agent; K21.9 Gastro-esophageal reflux disease without esophagitis; F32.9 Major depressive disorder, single episode, unspecified; Z90.89 Acquired absence of other organs; Z87.891 Personal history of nicotine dependence
CPT/HCPCS: 96361; 96374; 96375; 99282; A9270-GY; J1885; J2405; J2765